=== PATIENT | male | born 1950 | race Caucasian/White ===

== ENCOUNTER → 2022-06-28 14:20 | Outpatient (CLI) | payer OTHER, SELFPAY ==
--- NOTE | ~2022-06-28 | MR_ITS ---
EXAMINATION: MR lumbar spine wo con DATE: 06/28/2022 14:54 INDICATION: Low back pain. Bilateral leg pain. Right foot drop. TECHNIQUE: Magnetic resonance imaging (MRI) of the lumbar spine was performed without intravenous con trast. Sequences included sagittal T2-weighted FSE, sagittal T2-weighted FS FSE, sagittal T1-weighted FSE, and axial T2-weighted FSE. COMPARISON: None FINDINGS: There is 3 degrees levocurvature of lumbar spine. There are Schmorl's nodes at most levels. There is 3 mm retrolisthesis of L2 on L3. There is mildly decreased disc height at L2-L3 and L3-L4, severely decreased disc height at L4-L5, and moderately decreased disc height at L5-S1 with endplate remodeling. The distal spinal cord signal intensity is normal. The conus medullaris is at L1. There i s peripheral displacement of the cauda equina at S1, consistent with arachnoiditis. The following dis c levels are specifically discussed: L1-L2: The disc is bulging. There is mild bilateral facet joint osteoarthritis. There is mild bilater al neural foraminal stenosis. There is mild central canal stenosis. L2-L3: The disc is bulging and has an annular fissure. There is mild bilateral facet joint osteoarthr itis. There is moderate bilateral neural foraminal stenosis. There is mild central canal stenosis. Th ere is moderate stenosis of left lateral recess. L3-L4: The disc is bulging and has an annular fissure. There is severe bilateral facet joint osteoart hritis. There is moderate bilateral neural foraminal stenosis. There is moderate central canal stenos is. L4-L5: The disc is bulging and has an annular fissure. There is severe bilateral facet joint osteoart hritis. There is severe right and moderate left neural foraminal stenosis. There is mild central amrik l stenosis with posterior decompression. L5-S1: The disc is bulging and has an annular fissure. There is severe bilateral facet joint osteoart hritis. There is moderate bilateral neural foraminal stenosis. There is mild central canal stenosis. IMPRESSION: 1. Severe lumbar spondylosis. Reviewed, dictated and finalized at location A.
== END ==
PROVIDERS: Visit Provider Neurological Surgery
DX: M21.371 Foot drop, right foot (principal); M21.372 Foot drop, left foot; M47.896 Other spondylosis, lumbar region
CPT/HCPCS: 72148

== ENCOUNTER 2022-08-07 09:35 | Outpatient (CLI) | payer OTHER, SELFPAY ==
--- NOTE | ~2022-08-07 | US_ITS ---
EXAMINATION: US aorta DATE: 08/07/2022 10:16 INDICATION: Abdominal aortic aneurysm TECHNIQUE: Grayscale, color Doppler, and pulsed Doppler images of the aorta and common iliac arteries were obtained. COMPARISON: None. FINDINGS: The proximal aorta measures 2.8 cm. The mid aorta measures 2.1 cm. Fusiform ectasia of the distal aor ta measuring up to 3.4 cm maximal diameter before tapering to 1.9 cm at the bifurcation. The right co mmon iliac artery measures 1.4 cm. The left common iliac artery measures 1.1 cm. IMPRESSION: 1. Fusiform ectasia of the infrarenal abdominal aorta which measures up to 3.4 cm maximal diameter. Reviewed, dictated and finalized at location A. M AUDITOR
== END 2022-08-07 09:36 | disposition home or self-care (01) ==
PROVIDERS: Visit Provider Internal Medicine Cardiovascular Disease
DX: Z95.5 Presence of coronary angioplasty implant and graft (principal); I71.40 Abdominal aortic aneurysm, without rupture, unspecified; Z01.810 Encounter for preprocedural cardiovascular examination; I10 Essential (primary) hypertension; M48.061 Spinal stenosis, lumbar region without neurogenic claudication; E78.2 Mixed hyperlipidemia
CPT/HCPCS: 76775

== ENCOUNTER → 2022-08-29 16:25 | Outpatient (CLI) | payer OTHER, SELFPAY ==
--- NOTE | ~2022-08-29 | XR_ITS ---
XR hip RT min 2V 08/29/2022 16:42 Indication: Right hip pain Procedure: 3 views right hip Comparison: No prior studies for comparison. Findings: There is mild-moderate osteoarthritis of the right hip. No fracture or traumatic malalignme nt. Normal mineralization. No soft tissue abnormality. Impression: 1: Mild-moderate osteoarthritis of the right hip. Reviewed, dictated and finalized at location A. S EXPERT Impression: 1: Mild-moderate osteoarthritis of the right hip.
== END ==
PROVIDERS: PCP Neurological Surgery; Visit Provider Neurological Surgery
DX: M16.11 Unilateral primary osteoarthritis, right hip (principal)
CPT/HCPCS: 73502

== ENCOUNTER 2022-11-28 14:41 | Outpatient (CLI) | payer OTHER, MEDICARE, SELFPAY ==
--- NOTE | ~2022-11-28 | MR_ITS ---
MRI of the right hip Clinical history: Trochanteric bursitis Technique: Coronal T1-weighted, T2-weighted, and proton-density fat-sat images, and axial T1-weighted and proton-density fat-sat images were acquired through the pelvis. Coronal T2-weighted images and c oronal, axial, and sagittal proton-density fat-sat images were acquired through the right hip. Findings: There is extensive marrow edema in the right femoral head extending to the right femoral ne ck. There is underlying extensive high-grade chondromalacia throughout the right hip joint with super ior right hip joint space narrowing and osteophyte formation at the superolateral right acetabulum. M oderate right hip joint effusion is present. There is mild chondromalacia of the left hip joint. Bone marrow signals in the proximal left femur an d remaining visualized pelvic bones are unremarkable. No left hip joint effusion. SI joints are essen tially unremarkable. Visualized musculature about the pelvis is unremarkable. No muscle atrophy or edema identified. Visua lized tendons are intact. No fluid collection or bursitis identified. IMPRESSION: Extensive marrow edema in the right femoral head extending to femoral neck is likely reactive/stress response, related to underlying moderate right hip osteoarthritis. No evidence for avascular necrosis or subchondral insufficiency fracture. Moderate right hip joint effusion, presumably reactive. Consider joint aspiration if indicated. No evidence for bursitis. Reviewed, dictated and finalized at location M. CLE FUEL SYSTEMS CONVERTER IMPRESSION: Extensive marrow edema in the right femoral head extending to femoral neck is l ikely reactive/stress response, related to underlying moderate right hip osteoa rthritis. No evidence for avascular necrosis or subchondral insufficiency fract ure. Moderate right hip joint effusion, presumably reactive. Consider joint aspirati on if indicated. No evidence for bursitis.
== END 2022-11-28 14:42 | disposition home or self-care (01) ==
DX: M70.61 Trochanteric bursitis, right hip (principal); R60.9 Edema, unspecified; M16.11 Unilateral primary osteoarthritis, right hip; M25.451 Effusion, right hip
CPT/HCPCS: 73721

== ENCOUNTER 2022-11-28 14:42 | Outpatient (CLI) | payer OTHER, MEDICARE, SELFPAY ==
--- NOTE | ~2022-11-28 | MR_ITS ---
MRI of the lumbar spine Clinical History: Right hip pain Technique: Axial T2-weighted images, and sagittal T1-weighted, T2-weighted, and T2 fat-sat images wer e acquired. Following intravenous administration of 20 cc MultiHance gadolinium, T1-weighted fat-sat imaging was performed in the axial and sagittal planes. COMPARISON: 06/28/2022 Findings: There is no fracture or subluxation of the lumbar spine. Vertebral bodies maintain normal h eight and alignment. No suspicious bone marrow signal abnormality seen. Probable prior laminectomies at L2 and L3. At L1-L2, minimal disc bulge and facet arthropathy are present. No wang spinal canal stenosis. There is minimal left neural foraminal narrowing. At L2-L3, disc bulge and facet arthropathy are present. There is probable bilateral lateral recess st enosis, left worse than right. There is moderate to severe bilateral neural foraminal narrowing. At L3-L4, disc bulge and facet arthropathy are present. There is probable lateral recess stenosis ady aterally. There is severe bilateral neural foraminal narrowing. At L4-L5, disc bulge and facet arthropathy are present, with bilateral lateral recess stenosis. There is severe bilateral neural foraminal narrowing. At L5-S1, there is disc bulge and facet arthropathy. No wang spinal canal stenosis. There is severe bilateral neural foraminal narrowing. Paravertebral soft tissues are unremarkable. No abnormal/suspicious postcontrast enhancement identifi ed. Impression: Moderate to advanced degenerative spondylosis, with multilevel advanced neural foraminal narrowing, a s detailed above. There is multilevel lateral recess stenosis without wang central canal stenosis. Prior laminectomies at L2 and L3. Reviewed, dictated and finalized at location . L INSTRUCTOR Impression: Moderate to advanced degenerative spondylosis, with multilevel advanced neural foraminal narrowing, as detailed above. There is multilevel lateral recess sten osis without wang central canal stenosis. Prior laminectomies at L2 and L3.
== END 2022-11-28 14:43 | disposition home or self-care (01) ==
PROVIDERS: Visit Provider Neurological Surgery
DX: Z01.818 Encounter for other preprocedural examination (principal); M25.551 Pain in right hip; M47.816 Spondylosis without myelopathy or radiculopathy, lumbar region; M96.1 Postlaminectomy syndrome, not elsewhere classified
CPT/HCPCS: 72158; 73721; A9577

== ENCOUNTER 2023-02-05 10:53 | Outpatient (CLI) | payer MEDICARE, SELFPAY ==
--- NOTE | ~2023-02-05 | XR_ITS ---
EXAM: XR shoulder LT min 2V DATE: 02/05/2023 11:19 HISTORY: L ROTATOR CUFF TENDONITIS . COMPARISON: None available. FINDINGS: Normal mineralization. No fracture or dislocation. No lytic or blastic lesion. Moderate AC joint and mild glenohumeral joint degenerative change. Inferior acromial osteophytosis/enthesopathy that could contribute to osseous outlet compromise. Amorphous distal cuff calcification. No erosion o r periosteal change. Soft tissues within normal limits. IMPRESSION: Polyarticular osteoarthritis of the left shoulder. Rotator cuff calcific tendinitis. Reviewed, dictated and finalized at location K. IMPRESSION: Polyarticular osteoarthritis of the left shoulder. Rotator cuff cory cific tendinitis.
== END 2023-02-05 10:54 | disposition home or self-care (01) ==
PROVIDERS: PCP Family Medicine; Visit Provider Family Medicine
DX: M75.80 Other shoulder lesions, unspecified shoulder (principal); M19.012 Primary osteoarthritis, left shoulder
CPT/HCPCS: 73030

== ENCOUNTER 2023-04-24 14:00 | Outpatient (RCR) | payer MEDICARE, SELFPAY ==
--- NOTE | 2023-02-09 13:27 | PTOPEVAL1 ---
Assessment and note entered by Soco Krishna, PT Evaluation Information Assessment Status Evaluation Diagnosis s/p R THR Onset 12-28-22 Subjective Information pt had R THR on 12-28-22, then fell 01-02-23; went to in pt rehab and home 01-18-23; no longer using assistive device; do leg exercises on back; does not have any restrictions from dr; pain in R hip after any type of activty- walking, standing; also have back pain, more since having hip surgery; at home, has been walking on his treadmill about 1/2 mile, then have to stop due to pain in hip; does some leg exercises lying down. discussed with him-use his stationary bike, instead of treadmill to decrease stress on his hip and back; GOAL: walking without hip pain or back pain; Reported Pain Level Pain Score Self Report Additional Pain Score Comments pain range of 5-8/10 in the past week- R lateral hip and buttock- achey pain and low back; increase pain with sitting/walking tolerance 3 hours of activity at home; decrease pain with sit, rest; does not use ice, heat, pain meds;instruct PRN heat/ice use Assessment PT Clinical Summary Gustavo has the diagnosis of s/p R THR. Post op, he had a fall and had in pt rehab. He reports pain in his hip and back limit his walking, standing and activity level. With the evaluation, he has decreased strength of R hip; tenderness and pain over R mid to distal ITB; poor standing posture of back, with R hip and knee flexion; 5 reps sit/stand time of 19 seconds and 2 minute walking test distance of 390' with pain increase to 6/10 R hip; Skilled PT services are indicated for modalities to decrease hip and ITB pain; therapeutic exercises and activities to increase mobility and strength with education for home exercise and position of hip. Plan of Care Interventions Electrical Stimulation,Gait Training,Hot Pack/Cold Pack,Manual Therapy,Neuro Re-education,Patient/ Caregiver Education,Therapeutic Activities, Therapeutic Exercise,Ultrasound,Other Other Interventions iggy, ELI PT Ser
--- NOTE | 2023-02-14 10:57 | PCPTNOTE ---
Pt cancelled his afternoon appt today. Pt did not give a reason currently but stated he would call back later to explain.
--- NOTE | 2023-03-07 14:22 | PCPTNOTE ---
Patient called & cancelled scheduled appointment this date due to needing to rest today.
--- NOTE | 2023-03-13 16:55 | PTOPPROG ---
Assessment and note entered by Mason Anderson, PT, DPT Evaluation Information Assessment Status Progress Diagnosis s/p R THR Onset 12-28-22 Subjective Information Pt states his R hip is doing great. He states since getting his R hip replaced his L hip has started to hurt since his replacement. Assessment PT Clinical Summary Jose presents to therapy today for his progress report following 4 visits of skilled therapy to treat the deficits s/t a R DANNY. Today he demonstrates improved good knee strength, but continues to have decreased ady hil strength in all plane, gait deviations, and excessive trunk flexion during static standing. Continuation of skilled therapy services are indicated to address remaining deficits, improve strength, manage pain, and to return to PLOF. Pt progress could be potentially limited by cognitive deficits. Plan of Care Interventions Electrical Stimulation,Gait Training,Hot Pack/Cold Pack,Manual Therapy,Neuro Re-education,Patient/ Caregiver Educati,Therapeutic Activities, Therapeutic Exercise,Ultrasound,Other Other Interventions taping, IASTM PT Services Indicated Yes Treatment Frequency and 1x/wk for 5 weeks Duration These treatments will address the objective and functional deficits as defined above. The patient will be advanced safely and appropriately in order for the patient to progress towards his/her prior level of function. Additional exercises will be introduced and as well as a comprehensive home exercise program upon discharge, if needed, ?to ensure carryover of functional gains achieved in the clinic. This treatment plan has been reviewed and agreement upon by the patient.
--- NOTE | 2023-03-20 14:06 | PCPTNOTE ---
Patient called to cancel today stating he would not be able to make his appointment. No specific reason given.
--- NOTE | 2023-04-17 16:00 | PTOPPROG ---
Assessment and note entered by Mason Anderson, PT, DPT Evaluation Information Assessment Status Progress Diagnosis s/p R THR Onset 12-28-22 Subjective Information Pt states he has developed bursitis on his L hip now. He states it feels like his R leg is stronger than his R leg. Pt reports 90-100% improvement in his R hip function. Assessment PT Clinical Summary Jose presents to therapy today for his progress report following 8 visits of skilled therapy to treat the deficits s/t a R DANNY. Today he continues to have gait deviations including asymmetric step length with lack of terminal hip extension on the R. His strength is progressing but hip abduction strength continues to limit mobility. Continuation of skilled services are indicated to progress strength, ROM, balance, stability, and to return to PLOF. Pt progress could be potentially limited by limitations with care over. Plan of Care Interventions Electrical Stimulation,Gait Training,Hot Pack/Cold Pack,Manual Therapy,Neuro Re-education,Patient/ Caregiver Educati,Therapeutic Activities, Therapeutic Exercise,Ultrasound,Other Other Interventions taping, IASTM PT Services Indicated Yes Treatment Frequency and 1x/wk for 4 weeks Duration These treatments will address the objective and functional deficits as defined above. The patient will be advanced safely and appropriately in order for the patient to progress towards his/her prior level of function. Additional exercises will be introduced and as well as a comprehensive home exercise program upon discharge, if needed, ?to ensure carryover of functional gains achieved in the clinic. This treatment plan has been reviewed and agreement upon by the patient.
--- NOTE | 2023-04-17 16:04 | OPREHPOC ---
Outpatient Therapy Plan of Care This is a Multidisciplinary Plan of Care that may contain components documented by all disciplines (PT, OT, and ST.) PT Problem 1 PT Problem #1 Knowledge Deficit PT Goal 1 Goal Pt to be IND with issued HEP Target Visit 8 PT Problem 2 PT Problem #2 Pain PT Goal 1 Goal Pt to report pain no greater than 3/10 in the last week Target Visit 8 PT Goal 2 Goal Pt to report 50% improvement in L hip symptoms Target Visit 8 PT Problem 3 PT Problem #3 Impaired Range of Motion PT Goal 1 Goal Pt to achieve 5 deg of passive R hip extension Target Visit 8 PT Goal 2 Goal Pt to improve ady hamstring length to -30 deg Target Visit 8 PT Problem 4 PT Problem #4 Impaired Gait PT Goal 1 Goal Pt to demonstrates equal step length during ambulation Target Visit 8 PT Goal 2 Goal Pt to improve 2 min walk distance to 450 ft
--- NOTE | 2023-05-02 10:28 | PCPTNOTE ---
Patient called to cancel on May 01. No reason given.
--- NOTE | 2023-05-07 11:54 | PCPTNOTE ---
This treatment is being continued on visit number [id number]. Please see documentation on both accounts to view progress. Completed interventions, outcomes, and problems have been marked as Inactive to facilitate the copying of the Care plan routine for recurring accounts.
== END 2023-05-07 09:13 | disposition still patient (30) ==
LOC: ANHGOSHPT 14:00
PROVIDERS: PCP Family Medicine
DX: Z47.1 Aftercare following joint replacement surgery (principal); M75.82 Other shoulder lesions, left shoulder; Z96.641 Presence of right artificial hip joint
CPT/HCPCS: 97110; 97112; 97116; 97140; 97161; 97530

== ENCOUNTER 2023-06-05 09:33 | Outpatient (RCR) | payer MEDICARE, SELFPAY ==
--- NOTE | 2023-05-07 11:54 | PCPTNOTE ---
The treatment documented on this account is a continuation of the treatment documented on visit number [id number]. Please see documentation on both accounts to view progress. The Plan of Care has been transitioned and updated within the new V#. I have addressed and agree with the discipline specific Problems, Interventions, and Goals for the current certification period. Completed interventions, outcomes, and problems have been marked as Inactive to facilitate the copying of the Care plan routine for recurring accounts.
--- NOTE | 2023-05-15 13:19 | PCPTNOTE ---
Patient called & cancelled scheduled appointment this date. He states he will call back and reschedule at a later date.
--- NOTE | 2023-06-05 10:12 | PTOPDC ---
Assessment and note entered by Mason Anderson, PT, DPT Evaluation Information Assessment Status Discharge - Pt Not Present Diagnosis R hip pain Subjective Information Pt called and cancelled all of his remaining appointment and states he is going to therapy elsewhere. He did not give a reason why. Assessment PT Clinical Summary Jose completed 11 visits of skilled therapy from 02/09/23 to 05/15/23. In that time he also cancelled 4 appointments. He will be discharged at this time per pt request.
== END 2023-06-05 09:34 | disposition home or self-care (01) ==
LOC: ANHGOSHPT 09:33
PROVIDERS: PCP Family Medicine
DX: Z47.1 Aftercare following joint replacement surgery (principal); Z96.641 Presence of right artificial hip joint
CPT/HCPCS: 97110; 97140; 99199

== ENCOUNTER 2023-06-29 11:30 | Outpatient (CLI) | payer MEDICARE, SELFPAY ==
--- NOTE | ~2023-06-29 | CT_ITS ---
EXAMINATION: CT lung screening DATE: 06/29/2023 11:57 INDICATION: Personal history of nicotine dependence, prior smoker with 70 to pack year history TECHNIQUE: Computed tomography (CT) of the chest was performed without intravenous contrast. The dose -length product (DLP) was 349.11 mGy-cm. Automated exposure control and iterative reconstruction tech [employer] were employed. COMPARISON: 09/04/2019 FINDINGS: There is moderate emphysema. Calcified pulmonary nodules are consistent with old granulomat ous disease. No pathologically enlarged thoracic lymph nodes are identified. The heart size is normal . The lungs are free of acute opacities. No pleural effusion or pneumothorax. Calcified coronary cammie ry atherosclerosis is noted. Stones are present in the nondistended gallbladder. There is moderate th oracic spondylosis. IMPRESSION: 1. Lung-RADS category 1: Negative. Continue annual screening with noncontrast low-dose chest CT in 12 months. Reviewed, dictated and finalized at location F. IMPRESSION: 1. Lung-RADS category 1: Negative. Continue annual screening with noncontrast l ow-dose chest CT in 12 months.
== END 2023-06-29 11:31 | disposition home or self-care (01) ==
PROVIDERS: PCP Family Medicine; Visit Provider Family Medicine
DX: Z12.2 Encounter for screening for malignant neoplasm of respiratory organs (principal); Z87.891 Personal history of nicotine dependence
CPT/HCPCS: 71271

== ENCOUNTER 2023-09-18 17:40 | Outpatient (CLI) | payer MEDICARE, SELFPAY ==
--- NOTE | ~2023-09-18 | XR_ITS ---
EXAMINATION: XR chest 2V DATE: 09/18/2023 17:55 INDICATION: Cough. COVID-19. TECHNIQUE: Frontal and lateral views of the chest were obtained. COMPARISON: Chest CT 06/29/2023 FINDINGS: There is mild scarring at the lung apices. No pleural effusion or pneumothorax. The heart s ize is normal. IMPRESSION: 1. Mild scarring at the lung apices. Reviewed, dictated and finalized at location E. CONDITIONING TECHNICIAN
== END 2023-09-18 17:41 | disposition home or self-care (01) ==
PROVIDERS: PCP Family Medicine; Visit Provider Family Medicine
DX: U07.1 COVID-19 (principal)
CPT/HCPCS: 71046

== ENCOUNTER 2023-10-12 13:55 | Outpatient (RCR) | payer MEDICARE, SELFPAY ==
--- NOTE | 2023-10-12 16:14 | OPREHPOC ---
Outpatient Therapy Plan of Care This is a Multidisciplinary Plan of Care that may contain components documented by all disciplines (PT, OT, and ST.) PT Problem 1 PT Problem #1 Knowledge Deficit PT Goal 1 Goal Pt to be IND with issued HEP Target Visit 8 PT Problem 2 PT Problem #2 Pain PT Goal 1 Goal Pt to report pain no greater than 3/10 in the last week. Target Visit 8 PT Goal 2 Goal Pt to report 75% improvement in overall symptoms. PT Problem 3 PT Problem #3 Impaired Range of Motion PT Goal 1 Goal Pt to demonstrate passive hip extension to 0 deg Target Visit 8 PT Goal 2 Goal Pt to demonstrate improved hamstring length to -45 deg Target Visit 8 PT Problem 4 PT Problem #4 Impaired Functional Mobil PT Goal 1 Goal Pt to demonstrate a functional lift and carry with 20lb Target Visit 8
--- NOTE | 2023-10-12 16:14 | PTOPEVAL1 ---
Assessment and note entered by Mason Anderson, PT, DPT Evaluation Information Assessment Status Evaluation Diagnosis L hip tendonitis Onset 2 months Subjective Information Pt reports L hip pain increasing for the last 2 month. He states it is increasing the low back pain on his L side. He states his walking and standing is limited to about 10-15 minutes. He has been seen by therapy before in the past but he states his exercises are too painful to do. Reported Pain Level Pain Score 2: Self Report Assessment PT Clinical Summary Jose presents to therapy today for his initial evaluation with a diagnosis of L hip tendonitis. He demonstrates lack of hip extension ROM, decreased strength globally in his BLE, and gait deviations. He has significant tightness of his hamstring and ITBs bilaterally. Skilled therapy services are indicated for pain management, to improve strength, to minimize deficits, and to improve functional mobility. Plan of Care Interventions Electrical Stimulation,Gait Training,Hot Pack/Cold Pack,Manual Therapy,Neuro Re-education,Patient/ Caregiver Educati,Therapeutic Activities, Therapeutic Exercise PT Services Indicated Yes Treatment Frequency and 2x/wk for 8 visits Duration These treatments will address the objective and functional deficits as defined above. The patient will be advanced safely and appropriately in order for the patient to progress towards his/her prior level of function. Additional exercises will be introduced and as well as a comprehensive home exercise program upon discharge, if needed, ?to ensure carryover of functional gains achieved in the clinic. This treatment plan has been reviewed and agreement upon by the patient.
--- NOTE | 2023-10-24 16:15 | PCPTNOTE ---
Patient called & cancelled scheduled all remaining appointment this date due to wanting to see ortho prior to continuing therapy. Will continue to follow.
--- NOTE | 2023-11-02 11:56 | PTOPDC ---
Assessment and note entered by Mason Anderson, PT, DPT Evaluation Information Assessment Status Discharge - Pt Not Present Diagnosis L hip tendonitis Onset 2 months Subjective Information Called pt to follow up. Pt states he got a new chair and is not having any more pain. He does not wish to continue with formal PT at this time. Assessment PT Clinical Summary Pt was evaluated on 10/12/23 and did not complete any subsequent treatments. He will be discharged at this time per his request.
== END 2023-11-02 13:50 | disposition home or self-care (01) ==
LOC: ANHGOSHPT 13:55
PROVIDERS: PCP Family Medicine
DX: M76.02 Gluteal tendinitis, left hip (principal); M75.82 Other shoulder lesions, left shoulder
CPT/HCPCS: 97110; 97140; 97161

== ENCOUNTER 2024-05-15 11:01 | Outpatient (CLI) | payer MEDICARE, SELFPAY ==
--- NOTE | ~2024-05-15 | MR_ITS ---
EXAMINATION: MR lumbar spine wo/w con DATE: 05/15/2024 12:10 INDICATION: Chronic low back pain. TECHNIQUE: Magnetic resonance imaging (MRI) of the lumbar spine was performed without and with 10 mL MultiHance intravenous contrast. COMPARISON: Lumbar spine MRI 11/28/2022 FINDINGS: Bone alignment is normal. There is mild chronic height loss of L1 vertebral body. There are Schmorl's nodes at all levels. There is mildly decreased disc height at L2-L3 and L3-L4 and severely decreased disc height at L4-L5 and L5-S1. The distal spinal cord signal intensity is normal. The con us medullaris is at L1. The following disc levels are specifically discussed: L1-L2: The disc is bulging. There is mild bilateral facet joint osteoarthritis. There is mild bilater al neural foraminal stenosis. There is mild central canal stenosis. L2-L3: The disc is bulging and has an annular fissure. There is severe bilateral facet joint osteoart hritis. There is moderate bilateral neural foraminal stenosis. There is mild central canal stenosis w ith posterior decompression. L3-L4: The disc is bulging and has an annular fissure. There is severe bilateral facet joint osteoart hritis. There is moderate bilateral neural foraminal stenosis. There is mild central canal stenosis w ith posterior decompression. L4-L5: The disc is bulging and has an annular fissure. There is severe bilateral facet joint osteoart hritis. There is moderate bilateral neural foraminal stenosis. There is mild central canal stenosis w ith posterior decompression. L5-S1: The disc is bulging and has an annular fissure. There is severe bilateral facet joint osteoart hritis. There is moderate bilateral neural foraminal stenosis. There is mild central canal stenosis. IMPRESSION: 1. Severe lumbar spondylosis, stable from 11/20/2022. Reviewed, dictated and finalized at location A.
== END 2024-05-15 11:02 | disposition home or self-care (01) ==
PROVIDERS: PCP Family Medicine; Visit Provider Family Medicine
DX: M51.36 Other intervertebral disc degeneration, lumbar region (principal); M43.06 Spondylolysis, lumbar region
CPT/HCPCS: 72158; A9577

== ENCOUNTER 2024-06-26 13:00 | Outpatient (CLI) | payer MEDICARE, SELFPAY ==
--- NOTE | ~2024-06-26 | CT_ITS ---
CTA abdomen pelvis Ordering provider: Juan Francisco CerdaMD History: . ARTHEROSCLERTIC HEART DISEASE . Comparison: None. Technique: CT angiogram abdomen and pelvis was performed following timed intravenous injection of con trast. Thin slice axial images and reformatted coronal images were obtained. Three dimensional reform atted images of the chest were also obtained using a [employer] workstation. . Automated exposure contro l and iterative reconstruction technique were employed. The dose-length product was 1619.76 mGy-cm. 1 00 mL Omnipaque 350 was given IV. FINDINGS: VISUALIZED LOWER CHEST: Mild dependent atelectasis bilaterally. UPPER ABDOMINAL ORGANS: Liver: Fat infiltration. Tiny hyperdensities are seen which may be small cysts. Gallbladder: Cholelithiasis. Spleen: Normal. Stomach/duodenum: Normal. Pancreas: Normal. Adrenals: Normal. Kidneys: Normal. PELVIC ORGANS: The bladder is underfilled with slightly thickened wall. Prostatic enlargement. BOWEL AND MESENTERY: Colon: No evidence of diverticulitis. Normal appendix. Small Bowel: Normal. No obstruction. Peritoneum/mesentery: No free air or free fluid. No mesenteric lymphadenopathy. RETROPERITONEUM: No retroperitoneal lymphadenopathy. ABDOMINAL AORTA: Abdominal aortic aneurysm in the distal aorta measuring 4.1 x 3.5 cm. Thrombosis is seen posteriorly in the aneurysmal sac. ILIAC ARTERIES AND BRANCHING VESSELS: Atherosclerotic changes with mild narrowing. RENAL ARTERIES: Atherosclerotic changes in the left renal artery with slight narrowing distally. CELIAC AXIS AND BRANCHING VESSELS: Atherosclerotic at the origin. SUPERIOR MESENTERIC ARTERY AND BRANCHING VESSELS: Normal. INFERIOR MESENTERIC ARTERY: Atherosclerotic changes. VISUALIZED FEMORAL ARTERIES: Atherosclerotic changes bilaterally. MUSCULOSKELETAL: Superficial soft tissues: The superficial soft tissues are normal. Bones: Age appropriate degenerative changes of the spine. Right hip arthroplasty. IMPRESSION: 1. Abdominal aortic aneurysm measuring 4.1 x 3.5 cm. Follow-up advised. 2. Cholelithiasis. 3. Atherosclerotic changes in multiple vessels with variable degrees of narrowing. Reviewed, dictated and finalized at location A. IMPRESSION: 1. Abdominal aortic aneurysm measuring 4.1 x 3.5 cm. Follow-up advised. 2. Cholelithiasis. 3. Atherosclerotic changes in multiple vessels with variable degrees of narrow ing.
[2024-06-26 13:38] LABS: Estimated Glomerular Filt Rate 42
== END 2024-06-26 13:01 | disposition home or self-care (01) ==
LOC: ANHIMG 13:10
PROVIDERS: PCP Family Medicine; Visit Provider Internal Medicine Cardiovascular Disease
DX: I71.40 Abdominal aortic aneurysm, without rupture, unspecified (principal); K80.20 Calculus of gallbladder without cholecystitis without obstruction; I25.10 Atherosclerotic heart disease of native coronary artery without angina pectoris
CPT/HCPCS: 74174; Q9967

== ENCOUNTER 2025-02-26 15:25 | Outpatient (CLI) | payer MEDICARE, SELFPAY ==
--- NOTE | ~2025-02-26 | CT_ITS ---
CT Scan of the Chest without Contrast: Clinical Indication: Lung cancer screening, nicotine dependence Technique: Contiguous sections were acquired throughout the chest without intravenous contrast. Dose reduction technique was used on this scan by utilizing automated exposure control and iterative recon struction technique. The dose-length product (DLP) was 224.64 mGy-cm. COMPARISON: 06/29/2023 Findings: There is no evidence of any significant mediastinal, hilar or axillary lymphadenopathy. Coronary cammie ry calcifications are present. There is no evidence of pleural or pericardial effusion. There is mild biapical scarring. Moderate emphysema present. 2 mm left upper lobe nodule present yajaira pherally (axial image 41). Images through the upper abdomen reveal small gallstones. Impression: Lung RADS 2: Benign appearance. 12 month follow-up screening CT advised. Reviewed, dictated and finalized at [facility]. Impression: Lung RADS 2: Benign appearance. 12 month follow-up screening CT advised.
--- OUTSIDE RECORDS SUMMARY | 2025-02-26 15:29 | XMS_ITS | Clinical Summary ---
Author Organization [facility] Address [address] [place] [address] Phone Care Team Providers Care Sybase Developer Name Role Phone Ward Voss DO Primary Care Provider [phone] Allergies No known active allergies Medications atorvastatin (LIPITOR) 40 mg tablet Take 1 Tablet (40 mg) by mouth daily at bedtime. 60 Tablet 0 03/29/2016 Active acetaminophen (TYLENOL) 500 mg tablet Take 1,000 mg by mouth every 6 hours as needed. Active metoprolol tartrate (LOPRESSOR) 25 mg tablet Take 25 mg by mouth 2 times daily. 11/18/2021 Active hydrALAZINE (APRESOLINE) 25 mg tablet Take 1 Tablet (25 mg) by mouth 2 times daily. 01/04/2023 Active lisinopriL (PRINIVIL) 10 mg tablet Take 1 Tablet (10 mg) by mouth daily. 01/04/2023 Active cyanocobalamin (VITAMIN B-12) 1,000 mcg Tablet, Sublingual Place 1 Tablet (1,000 mcg) under tongue daily. 30 Tablet 01/04/2023 Active potassium chloride ER 10 mEq tablet,extended release Take 10 mEq by mouth 2 times daily with meals. Active rifAXIMin (XIFAXAN) 200 mg Tablet Take 200 mg by mouth 3 times daily. Active Hospital, Clinic, or Other Facility Administered Medication Ordered Dose Route Frequency Start Date End Date Status triamcinolone acetonide (KENALOG-40) injectable suspension 40 mgIndications:Primar y osteoarthritis of left hip 40 mg Intra-arTIC u ONE TIME ONLY 02/26/2025 Ended Active Problems Problem Noted Date Diagnosed Date Sacroiliac joint dysfunction of left side 2023 Cellulitis of right hip 08/08/2023 Pain of left hip 07/11/2023 Alzheimer disease 02/19/2023 Overview (08/08/2023): Last Assessment & Plan: Dx: AD Results to date reviewed Lecanemab treatment described. Candidacy reviewed. Provided with information sheet and infusion center locations. Daughter () provide AUR paper for review. Family to review and will let office know if they wish to proceed with treatment initiation. Status post total hip replacement, right 023 Sepsis 01/08/2023 Acute cystitis 01/08/2023 Acute kidney injury superimposed on CKD 01/09/20 23 S/P closed reduction of dislocated total hip pro sthesis 01/04/2023 Acute on chronic anemia 01/04/2023 Bilateral leg edema 01/04/2023 Acute deep vein thrombosis ( DVT) of femoral vein of right lower extremity 01/04/2023 Hypertensive urgency 01/04/2023 Uncontrolled hypertension 01/04/2023 Sinus tachycardia 01/04/2023 Therapeutic opioid-induced constipation (OIC) Hyponatremia 01/04/2023 Anterior dislocation of right hip 01/04/2023 S/P total right hip arthroplasty 01/02/2023 Fall at home 01/02/2023 Primary osteoarthritis of right hip 12/05/2022 Trochanteric bursitis, right hip 09/11/2022 Stage 1 mild chronic obstruc tive pulmonary disease by Global Initiative for Chronic Obstructive Lung Disease classification 02/10/2022 Coronary artery calcification seen on CAT scan 0 02/10/2022 History of 2019 novel coronavirus disease (COVID -19) 02/10/2022 COVID-19 11/26/2021 Overview (05/26/2022): Last Assessment & Plan: NEG influenza A/B but +covid. Continue tylenol/ibuprofen. Add mucinex for sinus pain & chest congestion. Reviewed red flags; what would warrant ED for more emergent eval. Mr Wright requested [facility] infusion. Order entered. Aware that [facility] infusion will call him to set up appt. Multiple pulmonary nodules d etermined by computed tomography of lung 08/14/2021 Centrilobular emphysema 08/14/2021 Personal history of tobacco use 08/14/2021 Calcified granuloma of lung 08/14/[address] 08/14/2021 AAA (abdominal aortic aneurysm) 05/26/2021 BPH (benign prostatic hyperplasia) 05/26/2021 Oral candidiasis 05/26/2021 Tear of left gluteus medius tendon 08/09/2020 Overview (05/26/2022): Added automatically from request for surgery [id number] Trochanteric bursitis, left hip 06/08/2020 Adenopathy, cervical 10/17/2018 Aortic atherosclerosis 03/11/2018 Displaced fracture of second metatarsal bone of left foot with routine healing 01/28/2018 Tinea pedis of both feet 12/31/2017 Eczema 07/19/2017 Subacute ethmoidal sinusitis 05/15/2017 Status post placement of stent in right coronary artery 04/26/2016 Presence of coronary angioplasty implant and gra ft 04/06/2016 Coronary arteriosclerosis in [place] artery 03/27 Overview (04/11/2017): Overview: 03/16 lexiscan nuclear: inferoapical & apical lateral ischemia, EF 64% 03/16 cath: EF 65%, EDP 14, 95% ulcerated mLCx -> AMOR (jailing small OM), 99% codminant small RCA -> AMOR, 100% small RPDA Dyspnea on exertion 02/23/2016 Edema 02/23/2016 Condyloma acuminatum 06/18/2015 Overview (05/31/2018): Overview: Condyloma acuminatum Pruritus ani 06/18/2015 Overview (05/31/2018): Overview: Anal itching Hyperlipidemia 09/29/2014 History of malignant neoplasm of skin 05/14/2014 Rosacea 03/05/2014 Low back pain 03/05/2014 History of tobacco use 03/05/2014 Essential hypertension Overview (01/10/2018): Overview: Abdominal aortic US 05/2016 -- abd ao ectasia at 2.9 cm max diameter with non-occlusive athero. Abdominal aortic US 11/2017 -- abd ao ectasia at 2.8 cm max diameter; non- occlusive athero may limit identification of posterior wall Resolved Problems Problem Noted Date Diagnosed Date Resolved Date Screening for cardiovascular , respiratory, and genitourinary diseases 03/07/2018 06/08/2020 Urinary tract infection without hematuria 10/10/2017 06/08/2020 Routine general medical exam ination at a health care facility 03/20/2017 06/08/2020 Leucocytosis 03/28/2016 06/08/2020 Hypertension 03/05/2014 06/08/2020 Overview (04/11/2017): Overview: Abdominal aortic US 05/2016 -- abd ao ectasia at 2.9 cm max diameter with non-occlusive athero. Discoid lupus erythematosus 05/12/2013 06/08/2020 Ischemic chest pain 06/08/20 20 Encounters Date Type Department Care Team Description 02/26/2025 2:00 PM CDT Procedure visit [facility] Sports Medicine [facility] [id number] [place] [phone] Ty Napoles MD Primary osteoarthritis of left hip (Primary Dx) 01/30/2025 12:15 PM CDT Ancillary Procedure [facility] Orthopedics - [facility] [address] [address] Santos Eduardo MD Pain of left hip 01/30/2025 11:45 AM CDT Office Visit [facility]oped[facility] [address] [facility] [address] [place] [address] Santos Eduardo MD Primary osteoarthritis of left hip (Primary Dx) 12/06/2024 External Device Data ST[facility] ABSTRACTION Provider, Abstract 12/06/2024 External Device Data [facility] ABSTRACTION Provider, Abstract 12/03/2024 External Device Data [facility] ABSTRACTION Provider, Abstract 12/02/2024 External Device Data [facility] ABSTRACTION Provider, Abstract from Last 3 Months Immunizations Immunization Administration Dates Next Due (ADACEL/BOOSTRIX)(10 YR UP) TDAP VACCINE, 0.5ML, IM 06/15/2019,07/03/2016 (PNEUMOVAX 23)(50 YRS UP) PN EUMOCOCCAL POLYSACCHARIDE (PPV23) 0.5 ML, IM 07/28/2019 (PREVNAR 13)(6 WKS UP) PNEUM OCOCCAL CONJUGATE (PCV13) 0.5 ML, IM 08/05/2017,05/27/2015 INFLUENZA VACCINE HIGH DOSE QUADRIVALENT 65 YR UP PF IM 07/14/2022,07/01/2021 Influenza Seasonal Unspecifi ed Formulation IM 07/14/2015 Influenza Vaccine High Dose 65+ Yrs IM 0 06/08/2020,07/28/2019,07/23/2018,08/05,07/21/2016,08/02/2015 Influenza Vaccine Tri Split 4+ Im 2014,08/10/2014,08/07/2013,08/07 Influenza, Unspecified Formulation 07/01/2021 Family History Medical History Relation Name Comments Healthy Brother Healthy Daughter Heart Disease Father N/A Heart Surgery Father N/A Heart Attack Maternal Grandfather N/A Heart Disease Maternal Grandfather N/A Cardiomyopathy Maternal Grandmother Heart Attack Mother Heart Attack Paternal Grandfather Relation Name Status Comments Brother Alive Daughter Alive Father N/A CABG at 72 Maternal Grandfather N/A Maternal Grandmother Mother [place] at 70 Paternal Grandfather Paternal Grandmother Social History Tobacco Use Types Packs/Day Years Used Date Smoking Tobacco: Former Cigarettes 0.3 20 0 03/28/1996 - 03/28/2016 Smokeless Tobacco: Never Alcohol Use Standard Drinks/Week Comments Yes 0 (1 standard drink = 0.6 oz pur e alcohol) occasionally Feeling Safe Answer Date Recorded Are you in a relationship wi th someone who hurts you emotionally and/or physically? No 01/08/2023 Food Insecurity Answer Date Recorded Social/Environmental Concerns No concerns Transportation Needs Answer Date Record ed Social/Environmental Concerns No concerns 04 /06/2023 Housing Stability Answer Date Recorded Social/Environmental Concerns No concerns Utility Needs Answer Date Recorded Social/Environmental Concerns No concerns Sex and Gender Information Value Date Recorded Sex Assigned at Not on file Legal Sex Male 6:10 AM 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 Gender Identity Not on file Sexual Orientation Not on file Last Filed Vital Signs Vital Sign Reading Time Taken Comments Blood Pressure 112/84 08/08/2023 11:42 AM 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 Pulse 78 03/12/2023 2:12 PM CDT Temperature 36.7 C (98.1 F) 01/10/2023 4:15 PM CDT Respiratory Rate 18 01/10/2023 4:15 PM CDT Oxygen Saturation 92% 01/10/2023 4:15 PM CDT Inhaled Oxygen Concentration - - Weight 106.6 kg (235 lb) 01/30/2025 12:06 PM CDT Height 185.4 cm (6' 1) 01/30/2025 12:06 PM CDT Body Mass Index 31 01/30/2025 12:06 PM CDT Plan of Treatment Health Maintenance Due Date Last Done Comments ZOSTER VACCINE (1 of 2) 1998 Traditional Medicare (ACO) A nnual Wellness Visit 06/09/2021 06/08/2020 RSV VACCINE (60+ or ) (1 - 1-dose 75+ series) 2023 INFLUENZA VACCINE (#1) 2024 2, 07/01/2021, 06/08/2020, Additional history exists DTAP/TDAP/TD VACCINES (3 - T d or Tdap) 06/15/2029 06/15/2019, 07/03/2016 PNEUMOCOCCAL VACCINE 50+ YEARS Completed 1 , 08/05/2017, 05/27/2015 COLORECTAL SCREENING Discontinued 07/23/2023, 02/18/2018, 02/18/2018, Additional history exists Colorectal Cancer Screening Discontinued FIT-DNA Q 3 years Discontinued FIT/FOBT Q 1 year Discontinued Flex Sig/CT Colonography Q 5 years Discontinued Medical Devices Implanted Type Area Lang Interpreter Device Identifier Shelf Expiration Date Model / Serial / Lot Shell G7 Pps Lmtd Hl 58mm [id number] - [id number] Implanted:Qty : 1 on 12/28/2022 by Santos Eduardo MD at [facility] Hip Right: Hip [employer] 09/18/2032 [id number] / / [id number] Description:CAP ROBLES Liner G7 Acet Nutrl 40mm Sz G Longevity [id number] - [id number] Implanted:Qty : 1 on 12/28/2022 by Santos Eduardo MD at [facility] Hip Right: Hip [employer] 11/07/[id number] / / [id number] Description:CAP ROBLES Screw Trlgy St 6.5x30mm [id number] 0 - [id number] Implanted:Qty : 1 on 12/28/2022 by Santos Eduardo MD at [facility] Screw Right: Hip [employer] 06/19/2032 [id number] / / [id number] Description:CAP ROBLES Promus Premier Amor-03/27/2016 Implanted: by Brandon Acevedo MD (Quantity not on file) Stent Coronary [employer] 05/20/2017 / / [id number] Description:MID LAD Promus Premier Amor-03/27/2016 Implanted: by Wilberto Maldonado MD (Quantity not on file) Stent Coronary [employer] 01/23/2017 / / [id number] Description:RCA Total Biolox Delta Fem Head, 40mm, +0mm Implanted:Qty : 1 on 12/28/2022 by Santos Eduardo MD at [facility] Right: Hip [employer] 09/18/2032 [id number] / / [id number] Description:1X ADD CAP ROBLES GIO REQ#[id number] Total Avenir Cmpl Kirk Std Nc Size 7.5 Implanted:Qty : 1 on 12/28/2022 by Santos Eduardo MD at [facility] Right: Hip [employer] 06/30/2025 [id number] / / [id number] Description:1X ADD CAP ROBLES Procedures Procedure Name Priority Date/Time Associated Diagnosis Comments XR HIP 2 OR 3 VIEWS LT Routine 01/30/2025 12:26 PM CDT Pain of left hip COLONOSCOPY REPORT Routine 02/18/2018 from Last 3 Months or Most Recently Relevant to Health Maintenance Results * XR HIP 2 OR 3 VIEWS LT (01/30/2025 12:26 PM CDT) Anatomical Region Laterality Modality Lower Extremity Left Computed Radiogr aphy 01/30/2025 12:2 6 PM CDT Impressions 01/30/2025 1:08 PM CDT IMPRESSION: No acute osseous abnormality. DICTATION LOCATION: Location [address] [place] [address] Narrative 01/30/2025 1:08 PM CDT EXAMINATION: XR HIP 2 OR 3 VIEWS LT DATE: 01/30/2025 12:26 PM HISTORY: Pain of left hip COMPARISON: 06/18/2024 FINDINGS: 2 views the left hip are provided. Right hip arthroplasty is in expected position. Left hip joint alignment is normal. Mild left hip joint osteoarthritis. No acute fracture. Phleboliths are seen in the pelvis. Atherosclerotic calcifications are seen. Procedure Note Sophia Hua MD - 01/30/2025 EXAMINATION: XR HIP 2 OR 3 VIEWS LT DATE: 01/30/2025 12:26 PM HISTORY: Pain of left hip COMPARISON: 06/18/2024 FINDINGS: 2 views the left hip are provided. Right hip arthroplasty is in expected position. Left hip joint alignment is normal. Mild left hip joint osteoarthritis. No acute fracture. Phleboliths are seen in the pelvis. Atherosclerotic calcifications are seen. IMPRESSION: No acute osseous abnormality. DICTATION LOCATION: Location [address] [place] [address] Santos Eduardo MD DIAGNOSTIC IMAGING ORDERABLES Fi nal Result * COLONOSCOPY REPORT (02/18/2018) us Farhan Talbert MD GI PROCEDURE ORDERABLES E dited Result - Final [facility] CLIA# [id number] [address] [address] from Last 3 Months or Most Recently Relevant to Health Maintenance Insurance MEDICARE PART A AND B CIG MCR SUPP RX [facility] Medicare Part D * Guarantor: [employer] Account Type Relation to Patient Date of Phone Billing Address Corporate [place] [id number] Advance Directives For more information, please contact: [phone] * Full Code (Latest Code Status on File) Date Activated Date Inactivated Comments 01/07/2023 6:37 PM 01/10/2023 8:39 PM * Full Code Date Activated Date Inactivated Comments 01/02/2023 8:04 AM 01/05/2023 4:37 PM * Full Code Date Activated Date Inactivated Comments 12/28/2022 6:05 PM 12/29/2022 3:25 PM * Full Code Date Activated Date Inactivated Comments 12/28/2022 8:02 AM 12/28/2022 6:05 PM * Full Code Date Activated Date Inactivated Comments 03/27/2016 1:24 PM 03/29/2016 3:32 PM Care Teams Sybase Developer Relationship Specialty Start Date End Date Ward Voss DO [address] [place], [place] [address] [address] PCP - General Family Practice 02/22/23
--- OUTSIDE RECORDS SUMMARY | 2025-02-26 15:29 | XMS_ITS | Encounter Summary ---
Author Organization [facility] Address [address] [place] [address] Care Team Providers Care Analysis Consultant Name Role Phone Ward Voss DO Primary Care Provider [phone] Reason for Visit * Reason Comments Hip Pain * Eval and Treat (Routine) - Closed Specialty Diagnoses / Procedures Referred By Jese sommer Referred To Contact Sports Medicine Diagnoses Pain of left hip Procedures [place] OFFICE/OUTPATIENT ESTABLISHED MOD MDM 30 MIN [place] OFFICE/OUTPATIENT NEW MODERATE MDM [place] [address] [facility] [address] [address] [address] Phone: tel: [place]: [place] [address] [facility] [address] [address] Phone: tel: fax: Referral ID Status Reason Start Date Expiration Date Visits Re quested Visits Authorized [id number] Closed 01/30/2025 01/30/2026 1 1 Encounter Details Date Type Department Care Team (Late st Contact Info) Description 02/26/2025 2:00 PM CDT Procedure visit [facility] [address] [address] [place] [address] [address] [address] Primary osteoarthritis of left hip (Primary Dx) Social History Tobacco Use Types Packs/Day Years [...] Date Record ed Social/Environmental Concerns No concerns Housing Stability Answer Date Recorded Social/Environmental Concerns No concerns Utility Needs Answer Date Recorded Social/Environmental Concerns No concerns Sex and Gender Information Value Date Recorded Sex Assigned at Not on file Legal Sex Male 6:10 AM [employer]OMET[employer]INE[employer] Gender Identity Not on file Sexual Orientation Not on file documented as of this encounter Progress Notes * Ty Napoles MD - 02/26/2025 2:00 PM CDT [facility] Note LEONCIO REED [id number] 02/26/2025 Referring Provider: Dr. Jayce MD Chief Complaint: Chief Complaint Patient presents with Hip Pain HPI: LEONCIO REED is a 74 y.o. male who presents with left hip pain Sport and/or occupation: n/a. Symptom onset or injury date: Chronic. Injury mechanism, if applicable: No EMMANUEL. Place of Occurrence, if applicable: n/a. Associated symptoms: Patient reports pain on back. He reports pain goes down the leg.. Previous relevant imaging/testing: XR 01/30/2025. Physical rehab program and length of time: No previous PT What has helped so far: CSI in back partially. Relevant medical/surgical history: No history of sx to the area . Other details: History of L4/L5 and L5/S1 injections, SGMB injection 08/08/2023 I personally reviewed, verified, and updated where necessary past medical history, surgical history, family history, social history, and medications. Social History Tobacco Use Smoking Status Former Current packs/day: 0.00 Average packs/day: 0.3 packs/day for 20.0 years (5.0 ttl pk-yrs) Types: Cigarettes Start date: 03/28/1996 Quit date: 03/28/2016 Years since quittin.9 Smokeless Tobacco Never Discussed Tobacco cessation secondary to its effect on orthopedic healing and overall inflammation of the body. Asked them to discuss with their PCP if medical help is needed. PE: Vital Signs: There were no vitals taken for this visit. Pre- and Post-Procedure Exam Injection site: No erythema, warmth, rash, ecchymosis, swelling. Can move associated joint(s) in all planes. Neurovascularly intact. US Guided Procedure Note Referring Provider: Dr. Jayce MD Indication: Hip Osteoarthritis Flare Procedure: Sonographically guided left hip joint steroid injection Informed Consent: Following denial of allergy and review of potential side effects and complications including, but not limited to, infection, allergic reaction, local tissue breakdown, systemic effects of corticosteroids (if used), elevation of blood glucose (if steroids used), injury to soft tissue and/or nerves and seizure, the patient indicated understanding and agreed to proceed. Procedural pause conducted to verify: correct patient identity, procedure to be performed and, as applicable, correct side and site, correct patient position, availability of any special equipment orother special requirements. Justification for use of ultrasound guidance: The use of direct sonographic visualization of the needle (rather than a non-guided injection) was required to ensure accurate injection placement for diagnostic specificity, to maximize clinical efficacy and for safety purposes to minimize risk of bleeding or injury to nearby neurovascular structures. Technique: The procedure was carried out under sterile technique utilizing a sterile ultrasound transducer cover and sterile ultrasound gel. Pre-procedural scanning was performed to determine optimalneedle approach for the procedure. The patient was prepped and draped in the usual sterile fashion. Patient position: supine Approach: in Plane, long [place] Local anesthesia: 3cc 1% Lidocaine Injectate: 40mg/ml Kenalog, 2cc 0.5% Ropivacaine Aspiration/Injection: Live sonographic guidance with a curvi-linear transducer was used throughout the procedure. A 25 gauge, 2 inch needle was used for local anesthesia and was guided into the hip joint region. After that, a 22 gauge, 3.5 inch needle was used to place injectate (noted above) into the hip joint. Post-Procedure Instructions: The patient tolerated the procedure well without complication and was discharged in good condition after a short observation period. The patient was instructed to avoid submerging the procedure site in water for 48-72 hours. The patient was instructed to contact me withany questions pertaining to the procedure and to inform me of the results of the procedure in approximately 7-10 days, as needed. Questions regarding general management should be directed to the patient's referring provider and the patient should keep all previously scheduled follow up appointments. Multiple finch images were saved. Impression: Successful sonographically-guided left hip joint steroid injection. Assessment and Plan: Encounter Diagnosis Name Primary? Primary osteoarthritis of left hip Yes Gustavo was seen today for hip pain. Diagnoses and all orders for this visit: Primary osteoarthritis of left hip - triamcinolone acetonide (KENALOG-40) injectable suspension 40 mg - [place] ARTHROCENTESIS ASPIR&/INJ MAJOR JT/BURSA W/US Successful sonographically-guided left hip joint steroid injection. Scribed by Nena Lang ATC for Dr. Ty Napoles. Ty Napoles MD [facility] The scribe's documentation has been prepared under my direction and personally reviewed by me in its entirety. I confirm that the note above accurately reflects all work, treatment, procedures, and medical decision making performed by me. *Portions of this encounter have been generated with [employer] without a human senior drafter. This report may or may not have been corrected for typographical, grammatical, and syntax errors.* documented in this encounter Plan of Treatment Not on file documented as of this encounter Visit Diagnoses Diagnosis Primary osteoarthritis of left hip- Primary Primary localized osteoarthrosis, pelvic region and thigh documented in this encounter Administered Medications Inactive Administered Medications - up to 3 most recent administrations Medication Order MAR Action Action Date Dose Rate Site triamcinolone acetonide (KENALOG-40) injectable suspension 40 mg 40 mg, Intra-arTICular, ONE TIME ONLY, 1 dose, On Ana María 02/26/25 at 1430, RoutineIndications:Primary osteoarthritis of left hip Given 02/26/2025 2:22 PM CDT 40 mg Hip, Left documented in this encounter Care Teams Analysis Consultant Relationship Specialty Start Date End Date Ward Voss DO [address] [id number] PCP - General Family Practice 02/22/23 documented as of this encounter
--- OUTSIDE RECORDS SUMMARY | 2025-02-26 15:29 | XMS_ITS | Clinical Summary ---
Author Organization [facility] Address [address] [place] [address] Care Team Providers Care Cobbler Mckay Name Role Phone Prashant BRAUN MD, Joseph Anthony Unavailable [phone] Gm Nguyễn MD Unavailable [phone] Moe Perez MD Unavailable [phone] Stefano Sánchez MD Unavailable Ward Voss DO Primary Care Provider [phone] Allergies No known active allergies Medications potassium chloride ER (KLOR-CON,K-DUR ) 10 mEq CR tabletIndicatio ns:hypokalemia Take 1 tablet/capsule (10 mEq total) by mouth 2 (two) times a day Active metoprolol tartrate (LOPRESSOR) 25 mg immediate release tablet Take 1 tablet (25 mg total) by mouth 2 (two) times a day 2 Active hydrALAZINE (APRESOLINE) 25 mg tabletIndicatio ns:hypertension Take 1 tablet (25 mg total) by mouth 2 (two) times a day Active lisinopriL (PRINIVIL,ZESTR IL) 10 mg tablet Take 1 tablet (10 mg total) by mouth daily Active atorvastatin (LIPITOR) 40 mg tablet Take 1 tablet (40 mg total) by mouth nightly 4 Active aspirin 81 mg chewable tablet Take 1 tablet (81 mg total) by mouth daily Active dexAMETHasone (DECADRON) 0.1 % ophthalmic suspension INSTILL ONE DROP IN EACH EYE TWO TIMES A DAY 10 mL 11 5 Active triamcinolone (KENALOG) 0.1 % creamIndication s:Rash Apply topically 2 (two) times a day 80 g 5 Active valACYclovir (VALTREX) 1 gram tablet [address] (KJ-TAB) 500 mg tablet,delayed release (DR/EC) TAKE 1 TABLET BY MOUTH EVERY EVENING 5 Active traMADoL (ULTRAM) 50 mg tablet Take 1 tablet (50 mg total) by mouth 2 (two) times a day as needed for pain 30 tablet 5 Active Active Problems Problem Noted Date Diagnosed Date Left hand weakness 01/21/2025 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 Candidacy reviewed. Provided with information sheet and infusion center locations. Daughter () provide AUR paper for review. Family to review and will let office know if they wish to proceed with treatment initiation. Assessment & Plan (02/19/2023 4:04 PM CDT): Blood work reviewed, normal 02/12/23 SLUMS 12/[address] reviewed, brain shrinkage noted. Off [employer] meds: Valium, oxycodone, gabapentin, oxybutynin, tolerodone Urology - consider Myrbetriq Brain imaging tomorrow. Recommend brain MRI. Confusion 01/06/2023 History of 2019 novel coronavirus disease (COVID -19) 02/10/2022 COVID-19 11/26/2021 Assessment & Plan (11/26/2021 8:49 AM CYTOLOGY TECHNOLOGIST): NEG influenza A/B but +covid. Continue tylenol/ibuprofen. Add mucinex for sinus pain & chest congestion. Reviewed red flags; what would warrant ED for more emergent eval. Mr Wright requested MAB infusion. Order entered. Aware that [facility] infusion will call him to set up appt. Abnormal chest CT 08/14/2021 BPH (benign prostatic hyperplasia) 05/26/2021 AAA (abdominal aortic aneurysm) 05/26/2021 Oral candidiasis 05/26/2021 Other emphysema 05/26/2021 Pulmonary nodules 05/26/2021 Sepsis without acute organ dysfunction Acute cystitis with hematuria 05/23/2021 Left hip pain 11/12/2020 Tear of left gluteus medius tendon 08/09/2020 Overview (08/09/2020): Added automatically from request for surgery [id number] Trochanteric bursitis of left hip 06/08/2020 Ischemic chest pain 10/22/2019 Tearing, bilateral 02/21/2019 Adenopathy, cervical 10/17/2018 Aortic atherosclerosis ([facility]/HCC) 03/11/2018 Screening for cardiovascular , respiratory, and genitourinary diseases 03/07/2018 Displaced fracture of second metatarsal bone of left foot with routine healing 01/28/2018 Tinea pedis of both feet 12/31/2017 Urinary tract infection without hematuria 2017 Eczema 07/19/2017 Cyst of skin 07/19/2017 Skin neoplasm 07/19/2017 Skin tag 07/19/2017 Knee pain 07/05/2017 Subacute ethmoidal sinusitis 05/15/2017 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 Lesion of eyelid 06/26/2016 Status post placement of stent in right coronary artery 04/26/2016 Presence of coronary angioplasty implant and gra ft 04/06/2016 S/P coronary artery stent placement 04/06/2016 Leucocytosis 03/28/2016 Mixed hyperlipidemia 03/28/2016 Coronary arteriosclerosis in [place] artery 03/27 Overview (10/22/2019): 03/16 lexiscan nuclear: inferoapical & apical lateral ischemia, EF 64% 03/16 cath: EF 65%, EDP 14, 95% ulcerated mLCx -> FRANDY (jailing small OM), 99% codminant small RCA -> FRANDY, 100% small RPDA 05/19 echo: EF 57%, no significant regional wall motion abnormalities, normal LV diastolic function, mild to mod RV enlargement, normal RVEF, no valve abnormalities, RVSP incalculable Overview: Overview: 03/16 lexiscan nuclear: inferoapical & apical lateral ischemia, EF 64% 03/16 cath: EF 65%, EDP 14, 95% ulcerated mLCx -> FRANDY (jailing small OM), 99% codminant small RCA -> FRANDY, 100% small RPDA Coronary artery disease invo lving [place] coronary artery of [place] heart without angina pectoris 03/27/2016 Overview (11/12/2020): 03/16 lexiscan nuclear: inferoapical & apical lateral ischemia, EF 64% 03/16 cath: EF 65%, EDP 14, 95% ulcerated mLCx -> FRANDY (jailing small OM), 99% codminant small RCA -> FRANDY, 100% small RPDA 05/19 echo: EF 57%, no significant regional wall motion abnormalities, normal LV diastolic function, mild to mod RV enlargement, normal RVEF, no valve abnormalities, RVSP incalculable 08/20 lexiscan nuclear: walked 6 min (104% predicted), clinically/ekg negative, images normal, EF 65% Dyspnea on exertion 02/23/2016 Edema 02/23/2016 History of malignant neoplasm of skin 01/27/2016 Pruritus ani 06/18/2015 Overview (01/05/2017): Anal itching Condyloma acuminatum 06/18/2015 Overview (01/05/2017): Condyloma acuminatum Condyloma acuminatum 06/18/2015 Overview (10/22/2019): Overview: Overview: Condyloma acuminatum Pruritus ani 06/18/2015 Overview (10/22/2019): Overview: Overview: Anal itching Skin neoplasm 12/24/2014 Seborrheic keratoses 05/14/2014 History of skin cancer 05/14/2014 History of malignant neoplasm of skin 05/14/2014 Essential hypertension 03/05/2014 Overview (10/22/2019): Overview: Abdominal aortic US 05/2016 -- abd ao ectasia at 2.9 cm max diameter with non-occlusive athero. Abdominal aortic US 11/2017 -- abd ao ectasia at 2.8 cm max diameter; non- occlusive athero may limit identification of posterior wall Overview: Overview: Abdominal aortic US 05/2016 -- abd ao ectasia at 2.9 cm max diameter with non-occlusive athero. Overview: Overview: Abdominal aortic US 05/2016 -- abd ao ectasia at 2.9 cm max diameter with non-occlusive athero. Abdominal aortic US 11/2017 -- abd ao ectasia at 2.8 cm max diameter; non- occlusive athero may limit identification of posterior wall Low back pain 03/05/2014 Tobacco abuse 03/05/2014 History of tobacco use 03/05/2014 Discoid lupus erythematosus 05/12/2013 Rash 05/05/2013 Actinic keratosis 03/17/2013 Squamous cell carcinoma of skin of trunk 012 Seborrheic keratosis, inflamed 11/01/2011 Actinic keratosis 11/01/2011 Rosacea 09/01/2011 Rotator cuff tendonitis 07/04/2011 Arthralgia of shoulder 07/04/2011 Cellulitis of right hip Encounters Date Type Department Care Team Description 02/20/2025 Telephone [place] [id number] [facility] First Floor [address] [place] [id number] Mena Garcia, A 02/20/2025 Orders Only [facility] [address], [address] [place] [phone] Ina Castanon MD Spondylosis of lumbar region without myelopathy or radiculopathy (Primary Dx) 02/17/2025 2:45 PM CDT - 02/17/2025 11:59 PM CDT Hospital Encounter [facility] [address], [address] [place] [phone] Ina Castanon MD Spondylosis of lumbar region without myelopathy or radiculopathy Discharge Disposition: Discharge to home or self care 02/17/2025 Telephone [facility] at [facility] [address] [facility] [address], [address] [place] [phone] Ina Castanon MD post left lumbar MBB #2 02/13/2025 Telephone [facility] [address] [place] [address] Plog, Meredith 02/13/2025 Telephone [facility] [address] [place] [address] Carolina Rodriguez RN 02/13/2025 Orders Only [facility] Neuro Muscle [address] [facility] 6th [place] [address] [place] [address] Hanh Zhou PA 02/12/2025 2:[address] [facility] [address] [place] [address] Alzheimer disease (HCC) (Primary Dx) 02/11/2025 2:30 PM CDT Office Visit [facility] Memory Diagnostic [address] First Floor [address] [place] [phone] Hanh Zhou PA Alzheimer's disease (HCC) [G30.9, F02.80] (Primary Dx) 02/11/2025 Telephone [facility] Diagnostic [address] First Floor [address] [place] [phone] Ilia Nolen MSW 02/09/2025 2:10 PM CDT Office Visit [facility] Orthopaedic Surgery [address] [facility] 2nd Floor [address] [place] [phone] German Muñoz MD Left hand weakness; Carpal tunnel syndrome of left wrist 02/06/2025 Telephone [facility] [address] [facility] [address], [address] [place] [phone] Ina Castanon MD LMBB SCHEDULED 02/05/2025 Orders Only [facility] at [address], [address] [place] [address] Ina Castanon MD Spondylosis of lumbar region without myelopathy or radiculopathy (Primary Dx) 02/05/2025 Telephone [facility] at [address], [address] [place] [address] Ina Castanon MD #2 LMBB 02/05/2025 Orders Only [facility] Neurosurgery [facility] Office Building [address] [place] [address] Ines Keller NP Left hand weakness (Primary Dx); Carpal tunnel syndrome of left wrist 02/03/2025 3:30 PM CDT Office Visit [facility] [place] [address] [place] [address] Awilda Rodriguez NP Rash (Primary Dx) 02/03/2025 Telephone [facility] Center [address] [facility] First Floor [address] [place] [address] Mena Garcia, RMA Test Results 02/01/2025 Results Follow-Up [facility] Neurosurgery [address] [place] [address] 4 [address] [place] [address] Ines Keller NP EMG/NCV - 01/29/2025 2:00 PM CDT Infusion [facility] [address] [facility] [address] [place] [address] Alzheimer disease (HCC) (Primary Dx) 01/28/2025 11:55 AM CDT - 01/28/2025 11:59 PM CDT Hospital Encounter [facility] [address] [place] [id number] Discharge Disposition: Discharge to home or self care 01/28/2025 11:55 AM CDT - 01/28/2025 11:59 PM CDT Hospital Encounter [facility] [address] [place] [address] Alzheimer's disease (HCC) Discharge Disposition: Discharge to home or self care 01/20/2025 1:00 PM CDT - 01/20/2025 11:59 PM CDT Hospital Encounter [facility] Neurology Testing [address] [place] [address] Left hand weakness Discharge Disposition: Discharge to home or self care 01/15/2025 1:[address] [facility] [address] [facility] [address] [place] [address] Alzheimer disease (HCC) (Primary Dx) 01/15/2025 Telephone [facility] [address] [address], [address] [place] [address] Ina Castanon MD PT order 01/01/2025 1:[address] [facility] [address] [facility] [address] [place] [address] Alzheimer disease (HCC) (Primary Dx) 12/18/2024 1:30 PM CDT Infusion [address] [place] [address] Alzheimer disease (HCC) (Primary Dx) 12/09/2024 2:30 PM CDT Office Visit [facility] Neurosurgery [address] [facility] Office Building [address] [place] [address] Ines Keller NP Left hand weakness (Primary Dx); Spondylosis of lumbar region without myelopathy or radiculopathy 12/04/2024 10:30 AM CYTOLOGY TECHNOLOGIST Infusion [address] [place] [address] Alzheimer disease (HCC) (Primary Dx) 12/03/[address] [place] [address] Rika Temple MD PhD 12/03/2024 Telephone [facility] [address] [facility] [address] [place] [address] Rika Temple MD PhD from Last 3 Months Immunizations Immunization Administration Dates Next Due Influenza, Trivalent, High D ose, Split, Preservative Free, Intramuscular 06/08/2020,07/28/2019,07/23/2018,08/05,07/21/2016,08/02/2015 Influenza, Trivalent, IM (MDV) 5,08/10/2014,08/07/2013,08/07 Influenza, Unspecified 07/01/2021 Pneumococcal Conjugate PCV 13 08/05/2017, 015 Pneumococcal Polysaccharide PPV23 07/28/2019 Tdap 06/15/2019,07/03/2016 Surgical History Surgery Date Site/Laterality Comments POLYPECTOMY APPENDECTOMY 10/01/2005 - 09/30/2006 CATARACT EXTRACTION 10/01/2017 - 09/30/2018 BACK SURGERY 10/01/2009 - 09/30/2010 L4-L5 KNEE SURGERY 10/01/2014 - 09/30/2015 COLONOSCOPY CARDIAC STENT PLACEMENT 10/01/2015 - 09/30/2016 FLUORO GUIDED INJECTION SHOULDER LEFT 09/29/2021 Lef t LUMBAR SPINE SURGERY x2 TOTAL HIP ARTHROPLASTY Right MOHS SURGERY LUMBAR PUNCTURE WO INJECTION , DIAGNOSTIC 05/15/2023 N/A SPINE SURGERY 2021 KNEE SURGERY HIP SURGERY Medical History Medical History Date Comments Personal history of diseases of skin or subcutaneous tissue History of rosacea - (Added by TW Conv) Personal history of diseases of skin or subcutaneous tissue History of seborrheic kerato sis - (Added by TW Conv) Malignant neoplasm of skin Skin cancer - (Added by TW Conv) Skin cancer IBS (irritable bowel syndrome) Sleep apnea H/O heart artery stent Hypertension Asthma Hypercholesteremia Depression Small intestinal bacterial overgrowth (SIBO) BPH (benign prostatic hyperplasia) DDD (degenerative disc disease), lumbosacral RLS (restless legs syndrome) DVT of lower extremity (deep venous thrombosis) (HCC) RLE COPD (chronic obstructive pu lmonary disease) (HCC) Lupus AAA (abdominal aortic aneurysm) History of COVID-19 x2 Coronary artery disease Dementia (HCC) Disc disorder of lumbar region Lumbar stenosis Low back pain Family History Medical History Relation Name Comments Cancer Brother 1 Hypertension Brother 1 Hypertension Brother 2 Brain cancer Brother 3 Dementia Father Heart disease Father Family history of cardiac disorder - (Added by TW Conv) Hypertension Father Family history of hypertension - (Added by TW Conv) Heart disease Maternal Grandfather Heart disease Maternal Grandmother Cataracts Mother Dementia Mother Heart disease Mother Family history of cardiac disorder - (Added by TW Conv) Hypertension Mother Family history of hypertension - (Added by TW Conv) Heart disease Paternal Grandfather Fuchs' dystrophy Neg Hx Glaucoma Neg Hx Macular degeneration Neg Hx Retinal detachment Neg Hx Relation Name Status Comments Brother 1 Brother 2 Alive Brother 3 Alive Father Maternal Grandfather Maternal Grandmother Mother Paternal Grandfather Social History Tobacco Use Types Packs/Day Years Used Date Smoking Tobacco: Former Cigarettes 1 55 1 96 - 2015 Smokeless Tobacco: Never Tobacco Cessation:Counseling Given: Not Answered Alcohol Use Standard Drinks/Week Comments Yes 0 (1 standard drink = 0.6 oz pur e alcohol) AUDIT-C Answer Date Recorded Q1: How often do you have a drink containing alcohol? Never 11/14/2024 Q2: How many drinks containi ng alcohol do you have on a typical day when you are drinking? Patient does not drink Q3: How often do you have si x or more drinks on one occasion? Never 11/14/2024 Personal Safety Answer Date Recorded Have you ever been in or are you currently in a harmful physical or emotional relationship or is someone making you feel afraid or unsafe? 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 Not on file Not on file Obstetrics History Last Filed Vital Signs Vital Sign Reading Time Taken Comments Blood Pressure 161/79 02/17/2025 3:36 PM CDT Pulse 66 02/17/2025 3:36 PM CDT Temperature 36.2 C (97.2 F) 02/17/2025 2:59 PM CDT Respiratory Rate 16 02/17/2025 3:36 PM CDT Oxygen Saturation 96% 02/17/2025 3:36 PM CDT Inhaled Oxygen Concentration - - Weight 109.8 kg (242 lb) 02/17/2025 2:59 PM CDT Height 182.9 cm (6') 02/17/2025 2:59 PM CDT Body Mass Index 32.82 02/17/2025 2:59 PM CDT Plan of Treatment Health Maintenance Due Date Last Done Comments Depression Screening 1950 Hepatitis C Screening 1948 Hepatitis B Screening 1966 Lung Cancer Screening 1998 Zoster Vaccine (1 of 2) 1998 Well Visit 65+ 2013 Influenza Vaccine (Season Ended) 2025 07/01/2021, 06/08/2020, 07/28/2019, Additional history exists Fall Risk Assessment 02/17/2026 02/17/2025, 10/31/2024, 09/29/2024, Additional history exists DTaP/Tdap/Td Vaccine (3 - Td or Tdap) 06/15/2029 06/15/2019, 07/03/2016 Pneumococcal vaccine 65+ Completed 019, 08/05/2017, 05/27/2015 Abdominal Aortic Aneurysm (A AA) Screen Completed 08/17/2021, 05/26/2021, 05/25/2021, Additional history exists Goals Goal Patient Goal Type Associated Problems Recent Progress Patient-Stated? Author CCM Chronic Pain Care Plan Chronic Care Management No Nathaly Shoemaker RN Note: Problem: Chronic Pain Goals: 1. Minimize further functional decline 2. Maximize quality of life 3. Control pain Strategies: - Activity/exercise program recommendation - Conservative stepwise pain medicine strategy with multi-disciplinary approach - Recommend healthy lifestyle strategies and compensatory methods as needed Reduce the likelihood of falling Lifestyle Nathaly Medina RN Note: Below are four things you can do to prevent falls: Begin an exercise program to improve your leg strength & balance Ask your doctor or pharmacist to review your medicines Get annual eye check-ups & update your eyeglasses Make your home safer by: Removing clutter & tripping hazards Putting railings on all stairs & adding grab bars in the bathroom Having good lighting, especially on stairs Contact your local community or senior center for information on exercise, fall prevention programs, or options for improving home safety. Medical Devices Implanted Type Area Oil Lease Buyer Device Identifier Shelf Expiration Date Model / Serial / Lot Stents Stent N/A: Heart Description:2 stents Hip Replacement Right: Hip Lumbar Fusion Spine Lumbar Procedures Procedure Name Priority Date/Time Associated Diagnosis Comments PAIN MGMT IMAGING LUMBAR/SACRAL FACET/ MEDIAL BRANCH BLOCK LEFT Schedule Routine, Read Routine (OP Routine) 02/17/2025 3:32 PM CDT Spondylosis of lumbar region without myelopathy or radiculopathy PET/CT AMYLOID BRAIN Schedule Routine, Read Routine (OP Routine) 01/28/2025 1:39 PM CDT Alzheimer's disease (HCC) EMG/NCV Routine 01/20/2025 1:20 PM CDT Left hand weakness US ABDOMINAL AORTA Schedule Routine, Read Routine (OP Routine) 08/17/2021 10:31 AM CYTOLOGY TECHNOLOGIST Abdominal aortic ectasia Atherosclerotic heart disease of [place] coronary artery with angina pectoris Malignant hypertension from Last 3 Months or Most Recently Relevant to Health Maintenance Results * Imaging Lumbar/Sacral Facet Medial Branch Block Left (93041) (02/17/2025 3:32 PM CDT) Narrative [facility] - 02/17/2025 3:32 PM CDT The images from this study are not interpreted by Radiology. Please refer to the physician's procedure / OR operative note. Ina Castanon MD IMG PAIN MGMT PROCEDURES F inal Result [facility] * PET/CT Amyloid Brain (01/28/2025 1:39 PM CDT) Anatomical Region Laterality Modality Positron Emissio n Tomography (PET) 01/28/2025 3:19 PM CDT Impressions 01/28/2025 4:04 PM CDT Negative amyloid-PET study, indicating no to sparse beta-amyloid neuritic plaques. General comments on amyloid-PET interpretation: A negative amyloid-PET study indicates sparse to no neuritic plaques and is inconsistent with Alzheimer disease at the time of the study. A negative study reduces the likelihood that the patient's cognitive impairment is due to Alzheimer disease. A positive amyloid-PET study indicates moderate to frequent neuritic plaques which is the amount present in patients with Alzheimer disease. However, a positive amyloid-PET study does not establish the diagnosis of Alzheimer disease. Moderate to frequent neuritic plaques can also be present in patients with other neurological conditions as well as in older people with normal cognition. Dictated by: Nehal Washington MD The radiology attending physician has personally reviewed this study, and had reviewed and/or edited this written report and agrees with it. Electronically signed by: Betsy Cedeño MD, Ph.D Narrative 01/28/2025 4:04 PM CDT EXAMINATION: BRAIN AMYLOID-PET/CT IMAGING DATE OF STUDY: 01/28/2025 SCANNER: [employer] RADIOPHARMACEUTICAL: 11.42 mCi F-18 florbetapir i.v. HISTORY: 74-year-old man with Alzheimer's disease on lecanemab undergoing evaluation for cognitive impairment undergoing re-assessment after treatment for brain amyloid deposition. TECHNIQUE: At 30 minutes after injection of tracer, non-contrast CT images of the head were obtained for attenuation correction and for fusion with emission PET images to allow for anatomical localization of PET findings. Standard emission PET imaging of the brain was then performed. The study was interpreted on the [facility] workstation. COMPARISON CT/MRI: Brain MRI 03/18/2023 FINDINGS: There is normal cortical-white matter contrast in the cerebellum. There is normal cortical-white matter contrast throughout the cerebrum. There are no foci of increased cortical activity. Incidental CT findings: Bilateral lens replacement. Procedure Note Betys Medrano MD PhD - 01/28/2025 EXAMINATION: BRAIN AMYLOID-PET/CT IMAGING DATE OF STUDY: 01/28/2025 SCANNER: [employer] N mCT RADIOPHARMACEUTICAL: 11.42 mCi F-18 florbetapir i.v. HISTORY: 74-year-old man with Alzheimer's disease on lecanemab undergoing evaluation for cognitive impairment undergoing re-assessment after treatment for brain amyloid deposition. TECHNIQUE: At 30 minutes after injection of tracer, non-contrast CT images of the head were obtained for attenuation correction and for fusion with emission PET images to allow for anatomical localization of PET findings. Standard emission PET imaging of the brain was then performed. The study was interpreted on the [facility] workstation. COMPARISON CT/MRI: Brain MRI 03/18/2023 FINDINGS: There is normal cortical-white matter contrast in the cerebellum. There is normal cortical-white matter contrast throughout the cerebrum. There are no foci of increased cortical activity. Incidental CT findings: Bilateral lens replacement. IMPRESSION: Negative amyloid-PET study, indicating no to sparse beta-amyloid neuritic plaques. General comments on amyloid-PET interpretation: A negative amyloid-PET study indicates sparse to no neuritic plaques and is inconsistent with Alzheimer disease at the time of the study. A negative study reduces the likelihood that the patient's cognitive impairment is due to Alzheimer disease. A positive amyloid-PET study indicates moderate to frequent neuritic plaques which is the amount present in patients with Alzheimer disease. However, a positive amyloid-PET study does not establish the diagnosis of Alzheimer disease. Moderate to frequent neuritic plaques can also be present in patients with other neurological conditions as well as in older people with normal cognition. Dictated by: Nehal Washington MD The radiology attending physician has personally reviewed this study, and had reviewed and/or edited this written report and agrees with it. Electronically signed by: Betsy Cedeño MD, Ph.D Hanh CASTILLO IMG PET PROCEDURES F inal Result * EMG/NCV - (01/20/2025 1:20 PM CDT) Anatomical Region Laterality Modality EMG Narrative Procedure Note Jimmie Guerra MD - 01/20/2025 12:00 AM CDT REQUESTING PHYSICIAN Dr. Chacon INDICATIONS FOR STUDY Mr. Jose Wright is a 74-year-old gentleman with a chief complaint ofleft hand numbness and paresthesias. ELECTRODIAGNOSTIC REPORT Left median palmar orthodromic, left ulnar palmar orthodromic sensorynerve conduction study revealed prolonged SNAP peak latencies, reducedSNAP amplitudes and slow SNCVs. Left radial antidromic sensory nerveconduction studies revealed normal SNAP peak latency, SNAP peak amplitudeand SNCV. Left median, and left ulnar motor nerve conduction studiesrevealed normal distal latencies, reduced compound motor action potentialamplitudes, normal motor nerve velocities and normal F-wave latencies.The reduction in amplitude was technical. EMG Concentric needle electrode sampled left abductor pollicis brevis,abductor digiti minimi, extensor indicis proprius, as well as dorsalinterossei, flexor carpi ulnaris, pronator teres, biceps, deltoid,cervical paraspinal muscles. No abnormal insertion or spontaneousactivity was generated. Motor unit potentials were normal. IMPRESSION This is an abnormal electrodiagnostic study with evidence of. 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 Clinical correlation recommended. Job ID/Internal Job ID: [id number] us Ines Keller NP NEUROLOGY ORDERABLES Fin al Result * US Abdominal Aorta (08/17/2021 10:31 AM CYTOLOGY TECHNOLOGIST) Anatomical Region Laterality Modality Abdomen N/A Ultrasound 08/17/2021 10:3 9 AM CYTOLOGY TECHNOLOGIST Impressions 08/17/2021 10:40 AM CYTOLOGY TECHNOLOGIST Stable fusiform infrarenal aortic aneurysm. Dictated by: Damion Montez M.D. The radiology attending physician has personally reviewed this study, and had reviewed and/or edited this written report and agrees with it. Electronically signed by: Ryne Hernandez M.D. Narrative 08/17/2021 10:40 AM CYTOLOGY TECHNOLOGIST EXAMINATION: AORTA SONOGRAM HISTORY: Infrarenal aortic aneurysm follow-up COMPARISON: Comparison is made with CT 05/25/2021 FINDINGS: Aorta: Fusiform infrarenal aortic aneurysm is stable when allowing for differences in technique measuring 3.6 x 3.6 cm. The remainder of the abdominal aorta is normal in caliber. There is atherosclerotic plaque. Iliac arteries: The left proximal common iliac artery measures 1.0 cm and the right 1.2 cm. Procedure Note Ryne Hernandez MD - 08/17/2021 EXAMINATION: AORTA SONOGRAM HISTORY: Infrarenal aortic aneurysm follow-up COMPARISON: Comparison is made with CT 05/25/2021 FINDINGS: Aorta: Fusiform infrarenal aortic aneurysm is stable when allowing for differences in technique measuring 3.6 x 3.6 cm. The remainder of the abdominal aorta is normal in caliber. There is atherosclerotic plaque. Iliac arteries: The left proximal common iliac artery measures 1.0 cm and the right 1.2 cm. IMPRESSION: Stable fusiform infrarenal aortic aneurysm. Dictated by: Damion Montez M.D. The radiology attending physician has personally reviewed this study, and had reviewed and/or edited this written report and agrees with it. Electronically signed by: Ryne Hernandez M.D. Juan Francisco Cerda III, MD [facility] PROCEDURES F inal Result from Last 3 Months or Most Recently Relevant to Health Maintenance Insurance MEDICARE [facility] MEDICARE SUPPLEMENT INSURANCE * Guarantor: Jose Wright Account Type Relation to Patient Date of Phone Billing Address Personal/Family Self 1950 [phone] (Work) [address], [place] [id number] MEDICARE [facility] MEDICARE [facility] CHOICE PLUS MEDICARE FORMERLY [facility] MEDICARE SUPPLEMENT INSURANCE Advance Directives For more information, please contact: [phone] * Full Code (Latest Code Status on File) Date Activated Date Inactivated Comments 01/06/2023 9:12 PM 01/07/2023 5:33 PM * Full Code Date Activated Date Inactivated Comments 05/24/2021 5:54 AM 05/27/2021 6:56 PM Care Teams Cobbler Mckay Relationship Specialty Start Date End Date Ward Voss DO [address] [place] [address] PCP - General Family Medicine 02/14/23 Juan Francisco Cerda III, MD [address] [place], [place] [id number] Consulting Physician Cardiology 11/24/19 Gm Nguyễn MD [address] [place], [place] [id number] Consulting Physician Urology 05/26/21 Moe Perez MD [address] [place] [address] Family Medicine 05/27/21 Stefano Sánchez MD [address] [place] [address] [place] [address] Consulting Physician Ophthalmology 01/11/22
--- OUTSIDE RECORDS SUMMARY | 2025-02-26 15:29 | XMS_ITS | Encounter Summary ---
Author Organization [facility] Address [address] [place] [address] Care Team Providers Care Soldering Machine Feeder Name Role Phone Ward Voss Primary Care Provider [phone] Reason for Visit * Reason Onset Date Comments UTI vs SSTI from recent hip arthroplasty 01/08/2023 SPOKE WITH ARIELLA/ DR. TERRELL [place] OFFICE Encounter Details Date Type Department Care Team (Late st Contact Info) Description 01/08/2023 Telephone [facility] Admitting [address] [place] [address] [place] [address] [facility] [address] [place] [address] UTI vs SSTI from recent hip arthroplasty (SPOKE WITH ARIELLA/ DR. 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 No / Unsure 12/26/2022 12:28 PM CDT documented as of this encounter Plan of Treatment Not on file documented as of this encounter Visit Diagnoses Not on filedocumented in this encounter Care Teams Soldering Machine Feeder Relationship Specialty Start Date End Date Ward Voss DO [facility] [id number] PCP - General Family Practice 02/22/23 documented as of this encounter
--- OUTSIDE RECORDS SUMMARY | 2025-02-26 15:29 | XMS_ITS ---
Author Organization [facility] Address [address] [place] [address] Care Team Providers Care Airport Operations Supervisor Name Role Phone Prashant BRAUN MD, JuanF rancisco Ochoa Unavailable [phone] Gm Nguyễn MD Unavailable [phone] Moe Perez MD Unavailable [phone] Stefano Sánchez MD Unavailable [phone] Ward Voss DO Primary Care Provider [phone] Active Problems Problem Noted Date Diagnosed Date [...] Head CT reviewed, brain shrinkage noted. Off MANAGER BUSINESS PLANNING meds: Valium, oxycodone, gabapentin, oxybutynin, tolerodone Urology - consider Myrbetriq Brain imaging tomorrow. Recommend brain MRI. Confusion 01/06/2023 History of 2019 novel coronavirus disease (COVID -19) 02/10/2022 COVID-19 11/26/2021 Assessment & Plan (11/26/2021 8:49 AM REGULATORY INTERN): NEG influenza A/B but +covid. Continue tylenol/ibuprofen. [...] (08/09/2020): Added automatically from request for surgery [id number] Trochanteric bursitis of left hip 06/08/2020 Ischemic chest pain 10/22/2019 Tearing, bilateral 02/21/2019 Adenopathy, cervical 10/17/2018 Aortic atherosclerosis (CMS/HCC) 03/11/2018 Screening for cardiovascular , respiratory, and [...] 03/28/2016 Mixed hyperlipidemia 03/28/2016 Coronary arteriosclerosis in [place] artery 03/27 Overview (10/22/2019): 03/16 lexiscan nuclear: [...] small RPDA Coronary artery disease invo lving [place] coronary artery of [place] heart without angina pectoris 03/27/2016 Overview (11/12/2020): [...] of shoulder 07/04/2011 Cellulitis of right hip Current Treatment and Therapy Plans No current plan information found. Other Current Plans MONTHLY MAINTENANCE LECANEMAB (LEQEMBI) - ALZHEIMER'S DISEASE (ONLY APPROVED FOR USE BY [facility] NEUROLOGY [facility]DC TEAM)* Plan Start Date:03/19/2025 Plan Provider:Hanh Zhou PA Linked Problems Alzheimer disease (HCC) Treatment Medications No medications scheduled. Past Treatment and Therapy Plans Lifetime Dose Tracking * Chemical Lifetime Dose Automatic Entry Manual Entr y Fluoro Time 1.328 minutes 1.328 minutes 0 minutes Air kerma at the reference point (Ka,r) 27.9 mGy 2 7.9 mGy 0 mGy
--- OUTSIDE RECORDS SUMMARY | 2025-02-26 15:29 | XMS_ITS | Encounter Summary ---
Author Organization [facility] Address [address] [place] [address] Phone Care Team Providers Care Supervisor Dog License Officer Name Role Phone Prashant BRAUN MD, Joseph Anthony Unavailable [phone] Gm Nguyễn MD Unavailable [phone] Moe Perez MD Unavailable [phone] Stefano Sánchez MD Unavailable [phone] Ward Voss DO Primary Care Provider [phone] Encounter Details Date Type Department Care Team (Late st Contact Info) Description 02/01/2025 Results Follow-Up [facility] Neurosurgery [address] [place] [address] Ines Keller, FLACO [address] [place] [address] EMG/NCV - Social History Tobacco Use Types Packs/Day Years Used Date Smoking Tobacco: Former Cigarettes 1 55 1 961 - 2016 Smokeless Tobacco: Never Alcohol Use Standard Drinks/Week [...] on file 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 Gender Identity Male 11/27/2021 7:40 AM BOOM TRUCK DRIVER Sexual Orientation Straight 11/27/2021 7: 40 AM BOOM TRUCK DRIVER 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 on file Not on file Not on file documented as of this encounter Miscellaneous Notes * Telephone Encounter - Mariela Brunson CMA - 02/05/2025 1:26 PM CDT Patient spouse calling for EMG results, made her aware of message from MR, says they are available the rest of the afternoon if MR is able to call documented in this encounter Plan of Treatment Not on file documented as of this encounter Goals Goal Patient Goal Type Associated Problems [...] Reduce the likelihood of falling Lifestyle Nathaly Medina, ROSSANA Note: Below are four things you can [...] programs, or options for improving home safety. documented as of this encounter Visit Diagnoses Not on filedocumented in this encounter Care Teams Supervisor Dog License Officer Relationship Specialty Start Date End Date aWrd Voss DO [address] [place] [address] [place] [address] PCP - General Family Medicine 02/14/23 Juan Francisco Cerda III, MD [address] [facility] [address] [place], [place] [id number] Consulting Physician Cardiology 11/24/19 Gm Nguyễn MD [address] [facility] [address] [place], [place] [phone] Consulting Physician Urology 05/26/21 Moe Perez MD [address] [place] [address] [place] [address] Family Medicine 05/27/21 Stefano Sánchez MD [address] [place] [address] [place] [address] Consulting Physician Ophthalmology 01/11/22 documented as of this encounter
--- OUTSIDE RECORDS SUMMARY | 2025-02-26 15:29 | XMS_ITS | Clinical Summary ---
Author Organization [facility] Address [address] [place] [address] Care Team Providers Care Superintendent Marine Name Role Phone Calvin Rodriguez MD Primary Care Provider Saad jackson Source Comments [facility] e(ye)BRAIN,non-owned Affiliates and Associated Physician Practices is amultiple site organization consisting of ambulatory clinics and hospital sitesin [place], [place] and [place]. This disclosure is being madepursuant to the Care Everywhere program and may not contain all information available regarding this patient. Last updated 18.[facility] e(ye)BRAIN Allergies No known active allergies Medications * Be aware that medications may not be up to date on this document. Alwaysverify current medications with the patient. diazepam (VALIUM) 5 MG tablet Take 5 mg by mouth 2 times daily as needed for Anxiety Active aspirin (ASPIRIN) 81 MG tablet Take 81 mg by mouth every Sunday, Sunday & Sunday Active tamsulosin (FLOMAX) 0.4 MG capsule Take 0.4 mg by mouth once daily Take 30 minutes after a meal at the same time each day. Active tolterodine (DETROL) 2 MG tablet Take 2 mg by mouth 2 times daily Active acetaminophen (TYLENOL) 500 MG tablet Take 1,000 mg by mouth 2 times daily as needed for Fever or Pain Maximum allowable Acetaminophen amount = 4 Grams (4000 mg) / 24 hours. Active lisinopril (PRINIVIL; ZESTRIL) 20 MG tablet Take 1 tablet by mouth once daily 90 tablet 1 0 Active potassium chloride ER (KLOR-CON 10) 10 MEQ tablet Take 1 tablet by mouth 2 times daily 180 tablet 3 0 Active meloxicam (MOBIC) 7.5 MG tablet Take 7.5 mg by mouth 2 times daily Active hydrALAZINE (APRESOLINE) 50 MG tablet Take 1 tablet by mouth twice daily 180 tablet 3 0 Active metoprolol tartrate (LOPRESSOR) 25 MG tablet Take 1 tablet by mouth twice daily 180 tablet 3 0 Active atorvastatin (LIPITOR) 40 MG tablet TAKE 1 TABLET BY MOUTH AT BEDTIME 30 tablet 5 0 Active Active Problems Problem Noted Date Diagnosed Date S/P coronary artery stent placement 04/06/2016 Mixed hyperlipidemia 03/28/2016 Coronary artery disease invo lving [place] coronary artery of [place] heart without angina pectoris 03/27/2016 Overview (08/12/2020): 03/16 lexiscan nuclear: inferoapical & apical lateral [...] predicted), clinically/ekg negative, images normal, EF 65% Essential hypertension 03/23/2016 Overview (12/19/2017): Abdominal aortic US 05/2016 -- abd ao ectasia at 2.9 cm max diameter with non-occlusive athero. Abdominal aortic US 11/2017 -- abd ao ectasia at 2.8 cm max diameter; non- occlusive athero may limit identification of posterior wall Resolved Problems Problem Noted Date Diagnosed Date Resolved Date Tobacco abuse 03/28/2016 11/24/2016 Smoking 03/23/2016 11/24/2016 Overview (12/31/2024): IMO 12/31/2024 Family History Medical History Relation Name Comments Heart Surgery Father [place] Mother Relation Name Status Comments Brother Alive Father CABG at 72 Mother HI at 70 Social History Tobacco Use Types Packs/Day Years Used Date Smoking Tobacco: Former Cigarettes 1.3 50 Alcohol Use Standard Drinks/Week Comments Yes 0 (1 standard drink = 0.6 oz pur e alcohol) Sex and Gender Information Value Date Recorded Sex Assigned at Not on file Legal Sex Male 2:20 PM CDT Gender Identity Not on file Sexual Orientation Not on file Last Filed Vital Signs Vital Sign Reading Time Taken Comments Blood Pressure 138/84 08/12/2020 1:24 PM FOUNTAIN SUPERVISOR Pulse 60 08/12/2020 1:24 PM FOUNTAIN SUPERVISOR Temperature - - Respiratory Rate - - Oxygen Saturation 98% 05/27/2019 12:53 PM CDT Inhaled Oxygen Concentration - - Weight 107 kg (236 lb) 08/12/2020 1:24 PM FOUNTAIN SUPERVISOR Height 182.9 cm (6') 08/12/2020 1:24 PM FOUNTAIN SUPERVISOR Body Mass Index 32.01 08/12/2020 1:24 PM FOUNTAIN SUPERVISOR Plan of Treatment Health Maintenance Due Date Last Done Comments HEPATITIS C SCREENING 05/05/1968 DTAP/TDAP/TD VACCINES (1 - Tdap) 1967 PNEUMOCOCCAL VACCINE 50+ (1 of 1 - PCV) 1998 ZOSTER VACCINE (1 of 2) 1998 Respiratory Syncytial Virus (RSV) Vaccine Pt: or over 60 yrs (1 - 1-dose 75+ series) 2023 COVID-19 VACCINE ( - season) 2024 DEPRESSION SCREENING 10/01/2024 INFLUENZA VACCINE (Season Ended) 2025 06/08/2020, 07/28/2019, 07/23/2018, Additional history exists HEPATITIS B VACCINE Aged Out No longe r eligible based on patient's age to complete this topic HIB VACCINE Aged Out No longer eligi ble based on patient's age to complete this topic HPV VACCINE Aged Out No longer eligi ble based on patient's age to complete this topic MENINGOCOCCAL (Group B) VACCINE SHARED DECISION-MAKING Aged Out No longer eligible based on patient's age to complete this topic MENINGOCOCCAL GROUPS A/C/Y/W VACCINE Aged Out No longer eligible based on patient's age to complete this topic Insurance [facility] Care Teams Superintendent Marine Relationship Specialty Start Date End Date Calvin Rodriguez MD PCP - General Internal Medicine 02/23/16
--- OUTSIDE RECORDS SUMMARY | 2025-02-26 15:29 | XMS_ITS | Referral Summary ---
Author Organization [facility] Address [address] [place] [address] Care Team Providers Care Drapery Seamstress Name Role Phone Prashnat BRAUN MD, Juan Francisco Ochoa Unavailable [phone] Gm Nguyễn MD Unavailable Moe Perez MD Unavailable Stefano Sánchez MD Unavailable [phone] Ward Voss DO Primary Care Provider [phone] Encounters Date Type Department Care Team Description 02/20/2025 Telephone [facility] First Floor [address] [place] [address] Mena Garcia, A 02/20/2025 Orders Only [facility] [address], [address] [place] [address] Ina Castanon MD Spondylosis of lumbar region without myelopathy or radiculopathy (Primary Dx) 02/17/2025 Telephone [facility] [address], [address] [place] [address] Ina Castanon MD post left lumbar MBB #2 02/17/2025 2:45 PM CDT - 02/17/2025 11:59 PM CDT Hospital Encounter [facility] [place] [address] [facility] [address], [address] [place] [address] Ina Castanon MD Spondylosis of lumbar region without myelopathy or radiculopathy Discharge Disposition: Discharge to home or self care 02/13/2025 Telephone [facility] [place] [address] [place] [address] Meredith Chatman 02/13/2025 Telephone [facility] [place] [address] [place] [address] Carolina oRdriguez RN 02/13/2025 Orders Only [facility] [address] [facility] 6th [place] [address] [place] [address] Hanh Zhou PA 02/12/2025 2:00 PM CDT Infusion [facility] [place] [address] [place] [address] Alzheimer disease (HCC) (Primary Dx) 02/11/2025 Telephone [facility] [address] [place] [address] First Floor [address] [place] [address] Ilia Nolen MSW 02/11/2025 2:30 PM CDT Office Visit [facility] [address] [place] [address] First Floor [address] [place] [address] Hanh Zhou PA Alzheimer's disease (HCC) [G30.9, F02.80] (Primary Dx) 02/09/2025 2:10 PM CDT Office Visit [facility] [address] [facility] 2nd Floor [address] [place] [address] German Muñoz MD Left hand weakness; Carpal tunnel syndrome of left wrist 02/06/2025 Telephone [facility] at [address], [address] [place] [address] Ina Castanon MD LMBB SCHEDULED 02/05/2025 Orders Only [facility] at [address], [address] [place] [address] Ina Castanon MD Spondylosis of lumbar region without myelopathy or radiculopathy (Primary Dx) 02/05/2025 Telephone [facility] at [address], [address] [place] [address] Ina Castanon MD #2 LMBB 02/05/2025 Orders Only [facility] [address] [place] [address] Office Building [address] [place] [address] Ines Keller NP Left hand weakness (Primary Dx); Carpal tunnel syndrome of left wrist 02/03/2025 3:30 PM CDT Office Visit [facility] [place] [address] [place] [address] Awilda Rodriguez NP Rash (Primary Dx) 02/03/2025 Telephone [facility] [address] [facility] First Floor [address] [place] [address] Mena Garcia, RMA Test Results 02/01/2025 Results Follow-Up [facility] [address] [place] [address] 4 [address] [place] [address] Ines Keller NP EMG/NCV - 01/29/2025 2:00 PM CDT Infusion [facility] [address] [facility] [address] [place] [address] Alzheimer disease (HCC) (Primary Dx) 01/28/2025 11:55 AM CDT - 01/28/2025 11:59 PM CDT Hospital Encounter [facility] [address] [place] [id number] Discharge Disposition: Discharge to home or self care 01/28/2025 11:55 AM CDT - 01/28/2025 11:59 PM CDT Hospital Encounter [facility] [address] [place] [address] Alzheimer's disease (HCC) Discharge Disposition: Discharge to home or self care 01/20/2025 1:00 PM CDT - 01/20/2025 11:59 PM CDT Hospital Encounter [facility] [address] [place] [address] Left hand weakness Discharge Disposition: Discharge to home or self care 01/15/2025 Telephone [facility] [address] [address], [address] [place] [address] Ina Castanon MD PT order 01/15/2025 1:00 PM CDT Infusion [facility] [address] [place] [address] Alzheimer disease (HCC) (Primary Dx) 01/01/2025 1:00 PM CDT Infusion [facility] [address] [place] [address] Alzheimer disease (HCC) (Primary Dx) 12/18/2024 1:30 PM CDT Infusion [facility] [address] [place] [address] Alzheimer disease (HCC) (Primary Dx) 12/09/2024 2:30 PM CDT Office Visit [facility] [address] [facility] Medical Office Building [address] [place] [address] Ines Keller NP Left hand weakness (Primary Dx); Spondylosis of lumbar region without myelopathy or radiculopathy 12/04/2024 10:30 AM [employer] Infusion [address] [place] [address] Alzheimer disease (HCC) (Primary Dx) 12/03/2024 Telephone [facility] [address] [facility] [address] [place] [address] Rika Temple MD PhD 12/03/2024 Telephone [facility] 4 [facility] [address] [place] [address] Rika Temple MD PhD from Last 3 Months Allergies No known active allergies Medications potassium [...] Head CT reviewed, brain shrinkage noted. Off BROKER IN CHARGE meds: Valium, oxycodone, gabapentin, oxybutynin, tolerodone Urology - consider Myrbetriq Brain imaging tomorrow. Recommend brain MRI. Confusion 01/06/2023 History of 2019 novel coronavirus disease (COVID -19) 02/10/2022 COVID-19 11/26/2021 Assessment & Plan (11/26/2021 8:49 AM ADVANCED ANALYTICS ASSOCIATE): NEG influenza A/B but +covid. Continue tylenol/ibuprofen. [...] (08/09/2020): Added automatically from request for surgery [id number] Trochanteric bursitis of left hip 06/08/2020 Ischemic [...] 03/28/2016 Mixed hyperlipidemia 03/28/2016 Coronary arteriosclerosis in [place] artery 03/27 Overview (10/22/2019): 03/16 lexiscan nuclear: [...] small RPDA Coronary artery disease invo lving [place] coronary artery of [place] heart without angina pectoris 03/27/2016 Overview (11/12/2020): [...] of shoulder 07/04/2011 Cellulitis of right hip Immunizations Immunization Administration Dates Next Due Influenza, Trivalent, High D ose, Split, Preservative Free, Intramuscular 06/08/2020,07/28/2019,07/23/2018,08/05,07/21/2016,08/02/2015 Influenza, Trivalent, IM (MDV) 5,08/10/2014,08/07/2013,08/07 Influenza, Unspecified 07/01/2021 Pneumococcal Conjugate PCV 13 08/05/2017, 015 Pneumococcal Polysaccharide PPV23 07/28/2019 Tdap 06/15/2019,07/03/2016 Social History Tobacco Use Types Packs/Day Years Used Date Smoking Tobacco: Former Cigarettes 1 55 1 961 - 2016 Smokeless Tobacco: Never Tobacco Cessation:Counseling Given: Not [...] on file Legal Sex Male 2:04 AM AD[employer]ANCED ANALYTICS ASSOCIATE Gender Identity Male 11/27/2021 7:40 AM ADVANCED ANALYTICS ASSOCIATE Sexual Orientation Straight 11/27/2021 7: 40 AM ADVANCED ANALYTICS ASSOCIATE 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 Medical Devices Implanted Type Area Occupancy Specialist Device Identifier Shelf Expiration Date Model / [...] Read Routine (OP Routine) 08/17/2021 10:31 AM ADVANCED ANALYTICS ASSOCIATE Abdominal aortic ectasia Atherosclerotic heart disease of [place] coronary artery with angina pectoris Malignant hypertension from Last 3 Months or Most Recently Relevant to Health Maintenance Results * Imaging Lumbar/Sacral Facet Medial Branch Block Left ([id number]) (02/17/2025 3:32 PM CDT) Narrative RAD_PACS_[facility] - 02/17/2025 3:32 PM CDT The images from this study are not interpreted by Radiology. Please refer to the physician's procedure / OR operative note. [facility] Arie Castanon MD IM PAIN MGMT PROCEDURES F inal Result RAD_PACS_BJWCH [...] AMYLOID-PET/CT IMAGING DATE OF STUDY: 01/28/2025 SCANNER: [facility] N mCT RADIOPHARMACEUTICAL: 11.42 mCi F-18 florbetapir [...] performed. The study was interpreted on the hhgregg workstation. COMPARISON CT/MRI: Brain MRI 03/18/2023 FINDINGS: There is normal cortical-white matter contrast in the cerebellum. There is normal cortical-white matter contrast throughout the cerebrum. There are no foci of increased cortical activity. Incidental CT findings: Bilateral lens replacement. Procedure Note Betsy Medrano MD PhD - 01/28/2025 EXAMINATION: BRAIN AMYLOID-PET/CT IMAGING DATE OF STUDY: 01/28/2025 SCANNER: [facility] N mCT RADIOPHARMACEUTICAL: 11.42 mCi F-18 florbetapir [...] performed. The study was interpreted on the hhgregg workstation. COMPARISON CT/MRI: Brain MRI 03/18/2023 FINDINGS: [...] Electronically signed by: Betsy Cedeño MD, Ph.D us Hanh CASTILLO IMG PET PROCEDURES F inal [...] Clinical correlation recommended. Job ID/Internal Job ID: [id number] us Ines Keller RETAIL AND PROMOTIONS COORDINATOR NEUROLOGY ORDERABLES Fin al Result * US Abdominal Aorta (08/17/2021 10:31 AM ADVANCED ANALYTICS ASSOCIATE) Anatomical Region Laterality Modality Abdomen N/A Ultrasound 08/17/2021 10:3 9 AM ADVANCED ANALYTICS ASSOCIATE Impressions 08/17/2021 10:40 AM ADVANCED ANALYTICS ASSOCIATE Stable fusiform infrarenal aortic aneurysm. Dictated by: Damion Montez M.D. The radiology attending physician has personally reviewed this study, and had reviewed and/or edited this written report and agrees with it. Electronically signed by: Ryne Hernandez M.D. Narrative 08/17/2021 10:40 AM ADVANCED ANALYTICS ASSOCIATE EXAMINATION: AORTA SONOGRAM HISTORY: Infrarenal aortic aneurysm [...] Hernandez M.D. Juan Francisco Cerda III, MD [facility] PROCEDURES F inal Result from Last 3 Months or Most Recently Relevant to Health Maintenance Insurance MEDICARE [facility] MEDICARE SUPPLEMENT INSURANCE [place] [id number] * Guarantor: Jose Wright Account Type Relation to Patient Date of Phone Billing Address Personal/Family Self 1950 [phone] (Work) [address], [place] [id number] MEDICARE CIG[employer] MEDICARE [facility] CHOICE PLUS MEDICARE CIG[employer] MEDICARE SUPPLEMENT INSURANCE Advance Directives For more information, please contact: [phone] * Full Code (Latest Code Status on File) Date Activated Date Inactivated Comments 01/06/2023 9:12 PM 01/07/2023 5:33 PM * Full Code Date Activated Date Inactivated Comments 05/24/2021 5:54 AM 05/27/2021 6:56 PM Care Teams Drapery Seamstress Relationship Specialty Start Date End Date Ward Voss DO [address] [place] [address] [address] [place] [address] PCP - General Family Medicine 02/14/23 Juan Francisco Cerda III, MD [address] [facility] [address], [place] [address] Consulting Physician Cardiology 11/24/19 Gm Nguyễn MD [address] [facility] [address] [id number] Consulting Physician Urology 05/26/21 Moe Perez MD [address] [place] [address] [place] [address] Family Medicine 05/27/21 Stefano Sánchez MD [address] [place] [address] [place] [address] Consulting Physician Ophthalmology 01/11/22
--- OUTSIDE RECORDS SUMMARY | 2025-02-26 15:29 | XMS_ITS | Data Portability ---
Author Organization [facility] [employer], [facility] Address [address] [place] [address] Care Team Providers Care Print Developer Name Role Phone BANDAR MACKEY Primary Care Provider Unavaila ble Assessment No assessment recorded. Plan of Treatment Reminders Order Date Submit Date Provider Last Modified By Organization Details Last Modified Time Details Appointments None recorded. Lab TSH, serum or plasma - Fasting 8 hrs 2019 020 [email or web address] Not available 0 16:12:41 T4, free, serum - Fasting 8 hrs 2019 020 [email or web address] Not available 0 16:12:41 T3, free, serum or plasma - Fasting 8 hrs 2019 020 [email or web address] Not available 0 16:12:41 CMP, serum or plasma - Fasting 8 hrs 2019 020 [email or web address] Not available 0 16:12:41 PSA, serum or plasma - Fasting 8 hrs 2019 020 [email or web address] Not available 0 16:12:41 vitamin D, 25-hydroxy, total, serum - Fasting 8 hrs 2019 020 [email or web address] Not available 0 16:12:41 testosteron e, free, serum - Fasting 8 hrs 2019 020 [email or web address] Not available 0 16:12:41 testosteron e, total, serum - Fasting 8 hrs 2019 020 [email or web address] Not available 0 16:12:41 CBC w/ auto diff - Fasting 8 hrs 2019 [email or web address] Not available 0 16:12:41 Referral None recorded. Procedures None recorded. Surgeries None recorded. Imaging US, lower extremity, nonvascular 2019 [email or web address] Not available 0 14:23:22 XR, hip, unilateral 2019 [email or web address] Not available 0 16:12:41 Medication Orders cephalexin 500 mg capsule 2019 [email or web address] Not available 0 16:12:41 Patient TargetsNo targets recorded. Patient InstructionsNo instructions recorded. Reason for Referral None Reported. Problems No Known Problems Medical Equipment None Reported. Allergies No known drug allergies Medications Name Sig Start Date Stop Date Status Note LastModified by Organization Details LastModified Time atorvastatin 40 mg tablet active Not Available Not Available Not Available lisinopril 20 mg tablet active Not Available Not Available No t Available doxycycline hyclate 50 mg capsule active Not Available Not Available Not Available potassium chloride ER 10 mEq tablet,extende d release active Not Available Not Available No t Available tolterodine 2 mg tablet active Not Available Not Available No t Available tamsulosin 0.4 mg capsule active Not Available Not Available N ot Available cephalexin 500 mg capsule Take 4 capsules (total of 2g) po one hour prior to procedure . One time dose. 2019 active Not Available Not Available Not Avai lable hydralazine 50 mg tablet active Not Available Not Available No t Available methylpredniso lone 4 mg tablets in a dose pack active Not Available Not Available No t Available betamethasone dipropionate 0.05 % topical ointment active Not Available Not Available Not Available ondansetron 4 mg disintegrating tablet active Not Available Not Available Not Available sertraline 50 mg tablet active Not Available Not Available No t Available diazepam 5 mg tablet active Not Available Not Available Not Available tobramycin 0.3 %-dexamethason e 0.1 % eye drops,suspensi on active Not Available Not Available Not Available neomycin 3.5 mg/g-polymyxin B 10,000 unit/g-dexamet h 0.1 % eye oint active Not Available Not Available Not Available Pneumovax-23 25 mcg/0.5 mL injection syringe active Not Available Not Available Not Available moxifloxacin 0.5 % eye drops active Not Available Not Available Not Available metoprolol tartrate 25 mg tablet active Not Available Not Available Not Available Xifaxan 550 mg tablet active Not Available Not Available Not Available Plenvu 140 gram-9 gram-5.2 gram powder packs active Not Available Not Available Not Available Fluzone High-Dose 2019-20 (PF) 180 mcg/0.5 mL intramuscular syringe active Not Available Not Available Not Available Vitals None Recorded Social History None recorded. Functional Status None recorded. Mental Status None recorded. Family History Nothing Reported. Medical History No medical history recorded. Past Encounters Encounter ID Performer Location Encounter Start Date Encounter Closed Date Diagnosis/Indication Diagnosis SNOMED-CT Code Diagnosis ICD10 Code Diagnosis Note [id number] Edin Veronica, DO [facility] [address] [place] [address] 12/08/2019 12:18:11 12/12/2019 10:36:18 Pain of hip region 62008790 M25.552 Malaise and fatigue 2717 24706 R53.83 M89.9 M94.9 Z12.5 Z01.812 R53.81 E55.9 Antibiotic prophylaxis indicated 165811557 Z78.9 Osteoarthr itis of right knee joint [id number] 81200 M17.11 After review of radiograph ic and examinatio n findings, we discussed treatment options available. These included corticoste roid injection, viscous supplement ation, bracing of the knee, observatio n, surgical referral, physical therapy, pain management , and/or stem cell treatment. The patient is definitely interested in non-surgic al alternativ es. If they choose to undergo stem cell biologic treatment, it is understood that it is considered investigat ional and off label use of the product by FDA, that it is not a covered benefit by insurance, and that there is no guarantee of symptom improvemen t. With the malalignme nt and instabilit y, I am recommendi ng a custom measured compartmen t coupling machine operator brace. We measured the patient for this and will submit to insurance for coverage. If opting to undergo biologic treatment, an order was given for laboratory studies to be completed. We reviewed the stem cell treatment and depth. Informatio n packet was given to and reviewed with the patient. All questions were answered related to the procedure, post procedure expectatio ns, and cost associated with treatment. We also discussed that sometimes more than one biologic treatment is required to attain desired efficacy. They will call our office if they desire to schedule an appointmen t for treatment or review any of the other treatment options discussed. Patient will also RTC or call for any worsening, questions or concerns prn. I discussed with the patient as well regarding the hip and I feel that this is likely something that he could have physical therapy to help with at this time.He is in agreement with this and we will go ahead and get started in this process.We will see him back if he is not seeing good improvemen t with the therapy rather rapidly.If he has additional questions in the interim he is encouraged to contact me. I spent over 45 minutes with patient today with more than 50% of the time in counseling , discussion and coordinati on of care regarding the above. Health Concerns Section Related Observation LastModified by Organization Detai ls LastModified Time None Recorded Concern Status LastModified by Organization Details LastModified Time None Recorded Advance Directives Directive None Recorded Payers Encounter Date Sequence Insurance Name Policy Number Policy Garcia Covered Member ID Garcia Member ID Guarantor Name 12/08/2019 1 [facility] [id number] Jose Wright [id number] Jose Wright Notes Date Note Type Note Provider Name and Address Organization Details Recorded Time 12/08/2019 text/html Patient is a 69-year-old male who is seen today for evaluation of his right knee pain.Patient states the knee pain has been gradually worsening over time and is described as a dull achy pain that he has noticed over the past couple of years.When he is really started to notice is that he has a Miranda's cyst intermittently he is having an increase in his pain.He does feel more weak to him when he does get some of this pain.He has been seen 3 time for this including for a meniscus surgery was performed in 2016 that provided some symptomatic benefit.He also has had some increased swelling that has been associated with his Miranda's cyst swelling as well.1 of these instances last year he did have a Doppler ordered to make sure that he did not have any blood clots and he did not.He is a very active gentleman and has been trying to increase his activity but the knee has been limiting him.Additionally he has started to have some left lateral hip pain is well and this does occasionally have some groin pain associated with it.This is more of a mild pain in the groin and more of a sharp pain overlying the lateral aspect of his joint usually when he is trying to do things.He denies any real weakness with this but feels that when he is having some of the sharper pains on the lateral hip he does not feel like he wants to walk on it. Pain Score Pain scale from 0-10, 10 being the worst 5 Chief Complaint Why are you here today? Bakers Cyst When did the problem start 2 or more years Pain scale from 0-10, 10 being the worst 5 Over time is the problem getting better or worse? Worse Pain Description Aching Dull Sharp Time of day when pain is at its worst All Day Long What makes the pain better? Aleve Have you seen another doctor for this? Yes Name of the doctor Dr Kalin Mendez Previous Methods Tried to Manage Pain Anti-inflammatory Medications Tylenol Has patient ever had injections? No Imported from [email or web address] on 12/08/[place] [address] [address], [place], [address], [facility], [facility] 12/11/2019 14:24:19
--- OUTSIDE RECORDS SUMMARY | 2025-02-26 15:29 | XMS_ITS | Encounter Summary ---
Author Organization [facility] Healthcare Address [address] [place] [address] Care Team Providers Care Inhalation Therapy Teacher Name Role Phone Prashant BRAUN MD, Joseph Anthony Unavailable [phone] Gm Nguyễn MD Unavailable [phone] Moe Perez MD Unavailable [phone] Stefano Sánchez MD Unavailable Ward Voss DO Primary Care Provider [phone] Reason for Visit * Reason Onset Date Comments post left lumbar MBB #2 02/17/2025 Encounter Details Date Type Department Care Team (Late st Contact Info) Description 02/17/2025 Telephone [facility] [address] [address], [address] [place] [address] Ina Castanon MD [address] [place] [address] post left lumbar MBB #2 Social History Tobacco Use Types Packs/Day Years Used Date Smoking Tobacco: Former Cigarettes 1 55 1 961 - 2015 Smokeless Tobacco: Never Alcohol Use Standard Drinks/Week [...] on file Legal Sex Male 2:04 AM LEGAL RESEARCHER Gender Identity Male 11/27/2021 7:40 AM LEGAL RESEARCHER Sexual Orientation Straight 11/27/2021 7: 40 AM LEGAL RESEARCHER 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 * Telephone Encounter - Ines Hutton RN - 02/18/2025 9:20 AM CDT Date of procedure: 02/17/25 Procedure: Left lumbar medial branch block Level(s):L4/5 and L5/S1 Site: [x]Left [] Right [] Bilateral Pre-Procedure Pain Score: 3/10 Sedation: [x] No sedation [] Sedation Post Procedure Follow up Assessment: Did the injection help you? [x] Yes [] No Do you feel you had 80% or more pain relief? [x] Yes [] No Current Pain Rating? 0/10 Numbness/Heaviness: [x] No [] Yes Dizziness/Lightheadedness: [x] No [] Yes Tenderness/Redness/Swelling: [x] No [] Yes Pain Diary: 2 Hour Pain Diary every 15 mins 4 Hour Pain Diary every 30 mins 8 Hour pain Diary every 1 hour 3 3 3 2 2 2 2 1 Are you actively participating in physical therapy, home exercise, or gnosticism program ( ex: aquatic therapy, chiropractor, acupuncture, massage): [x] Yes or [] No If no, are you unable to participate in the above due to severe pain:[] Yes or [] NO Were the following activities more, less, or the same: Personal Care (washing, dressing): [x] More [] Less [] Same Lifting: [] More [] Less [x] Same Walking: [x] More [] Less [] Same Standing: [x] More [] Less [] Same Sitting: [x] More [] Less [] Same Traveling: [x] More [] Less [] Same Homemaking Activity: [x] More [] Less [] Same Social Life: [x] More [] Less [] Same Sleeping: [x] More [] Less [] Same Other Comments/Concerns: Pt will be on vacation from the 28 February - 15 March - we can contact them via [employer] during that timeperiod. * Telephone Encounter - Heydi Dobson RN - 02/17/2025 2:59 PM CDT 5.20.25 left lumbar MBB #2 Please call patient to review pain log documented in this encounter Plan of Treatment [...] the likelihood of falling Lifestyle No Nathaly Shoemaker RN Note: Below are four things you [...] on stairs Contact your local community or [employer] for information on exercise, fall prevention programs, or options for improving home safety. documented as of this encounter Visit Diagnoses Not on filedocumented in this encounter Care Teams Inhalation Therapy Teacher Relationship Specialty Start Date End Date Ward Voss DO [address] [place] [address] PCP - General Family Medicine 02/14/23 Juan Francisco Cerda III, MD [address] [facility] [address] [place] [address] Consulting Physician Cardiology 11/24/19 Gm Nguyễn MD [address] [facility] [address] [place] [address] Consulting Physician Urology 05/26/21 Moe Perez MD [address] [place] [address] [place] [address] Family Medicine 05/27/21 Stefano Sánchez MD [address] [place] [address] [place] [address] Consulting Physician Ophthalmology 01/11/22 documented as of this encounter
--- OUTSIDE RECORDS SUMMARY | 2025-02-26 15:29 | XMS_ITS | Encounter Summary ---
Author Organization [facility] Address 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 No / Unsure 12/26/2022 12:28 PM CDT documented as of this encounter Miscellaneous Notes * Telephone Encounter - Charlotte Salas ATC - 01/11/2023 3:19 PM CDT Called and scheduled patient for 01/16/23. Charlotte * Telephone Encounter - Aliyah Pemberton - 01/11/2023 12:52 PM CDT Patient call to schedule her another post op appointment please call back at [phone] documented in this encounter Plan of Treatment Not on file documented as of this encounter Visit Diagnoses Not on filedocumented in this encounter Care Teams Health Care Analyst Relationship Specialty Start Date End Date Ward Voss DO [facility] [address] PCP - General Family Practice 02/22/23 documented as of this encounter
--- OUTSIDE RECORDS SUMMARY | 2025-02-26 15:29 | XMS_ITS | Encounter Summary ---
Author Organization [facility] Address [address] [place] [address] Care Team Providers Care Clinical Pharmacy Coordinator Name Role Phone SidneyWard butler Ianjosé luis Primary Care Provider [phone] Encounter Details Date Type Department Care Team (Late st Contact Info) Description 01/11/2023 Telephone [facility] - [place] [address] [facility] [address] [place] [address] [place] [address] 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
--- OUTSIDE RECORDS SUMMARY | 2025-02-26 15:29 | XMS_ITS | Data Portability ---
Author Organization [place] - [facility],, Main Office Address [address] [place] [id number] Assessment Encounter Date Assessment Date Assessment LastModified by Organization Details LastModified Time 07/26/2022 07/26/2022 Total time spent on the date of service preparing for, seeing the patient, and completing the documentation was 35 minutes. [email or web address] Not available 07/26/2022 16:52:06 05/14/2023 05/14/2023 This note and documentation is not a direct quotation of the discussion between the patient and medical provider and as such will contain standard phrases and summarizations of care. This note was written as patient medical documentation and as communication tool between healthcare providers and may contain technical language, terminology, and abbreviations that are difficult to interpret without advanced medical training. If you have questions or concerns regarding what is written in this note, please contact our office. [email or web address] Not available 05/14/2023 15:03:43 09/05/2023 09/05/2023 This note and documentation is not a direct quotation of the discussion between the patient and medical provider and as such will contain standard phrases and summarizations of care. This note was written as patient medical documentation and as communication tool between healthcare providers and may contain technical language, terminology, and abbreviations that are difficult to interpret without advanced medical training. If you have questions or concerns regarding what is written in this note, please contact our office. [email or web address] Not available 09/05/2023 16:32:46 Plan of Treatment Reminders Order Date Submit Date Provider Last Modified By Organization Details Last Modified Time Details Appointments None recorded. Lab None recorded. Referral None recorded. Procedures None recorded. Surgeries fasciecto my, plantar fascia (SURG) 023 [id number] [email or web address] Not available 4 09:02:45 Imaging None recorded. Medication Orders None recorded. Patient TargetsNo targets recorded. Patient Instructions Encounter Date Encounter Id Patient Instructions Last Modified By Organization Details Last Modified Time 09/05/2023 [id number] body mass index: care instructions [email or web address] Not available 09/05/2023 16:34:40 Reason for Referral None Reported. Problems Name Problem SNOMED Code Status Onset Date Resolution Date Notes Provider Name and Address Organization Details Recorded Time Pain in left foot [id number] 07 Active 2022 Chloe Rodriguez DPM [address] [facility],[address], [place], [address], [facility], 3 15:03:46 Fibromatosi s of plantar fascia of left foot 1005346005410 9101 Active 2022 Chloe Rodriguez DPM [address] [facility],[address], [place], [address], [facility], 3 15:03:50 Mass of subcutaneou s tissue of left foot 7871442614004 9100 Active 2022 Chloe Rodriguez DPM [address] [facility],[address], [place], [address], [facility], 3 15:04:42 Ingrowing toenail 057893499 Active 2021 Chloe Rodriguez DPM [address] [facility],[address], [place], [address], [facility], 2 17:27:52 Pain of toes of bilateral feet 5453745815266 9102 Active 2021 Chloe Rodriguez DPM [address] [facility],[address], [place], [address], [facility], 2 17:27:55 Dystrophia unguium 74260153 Active 2021 Chloe Rodriguez, THUAN [address] [facility],[address], [place], [address], [facility], 2 17:28:31 Problem Notes None recorded. Procedures Surgical History Date Name Laterality Status Provider Name and Address Organization Details Recorded Time 3 Plantar Fascia Steroid Injection completed Chloe Rodriguez DPM [address] [facility],[address], [place], [address], [facility], 05/14/2023 14:57:33 3 Foot Strapping completed Chloe Rodriguez DPM [address] [facility],[address], [place], [address], [facility], 05/14/2023 14:56:21 Back Surgery completed [facility], 02/22/2022 16:55:[address] [facility], 02/22/2022 16:55:23 bilateral extraction of cataracts completed [facility], 02/22/2022 16:55:31 open heart surgery completed [facility], 02/22/2022 16:55:47 Imaging Results None recorded. Procedure Notes None recorded. Medical Equipment None Reported. Allergies No known drug allergies Medications Name Sig Start Date Stop Date Status Note LastModified by Organization Details LastModified Time tolterodine ER 2 mg capsule,exte nded release 24 hr TAKE 1 CAPSULE BY MOUTH ONCE DAILY active Not Available Not Available No t Available amoxicillin 500 mg capsule TAKE FOUR CAPSULES BY MOUTH ONE HOUR BEFORE APPOINTMENT active Not Available Not Available Not Available atorvastatin 40 mg tablet TAKE 1 TABLET BY MOUTH ONCE DAILY AT BEDTIME active Not Available Not Available No t Available methocarbamo l 500 mg tablet active Not Available Not Available Not Available azelastine 0.05 % eye drops INSTILL 1 DROP INTO EACH EYE TWICE DAILY active Not Available Not Available Not Available nystatin 100,000 unit/mL oral suspension SWISH AND SPIT 4 ML BY MOUTH 4 TIMES DAILY FOR 14 DAYS active Not Available Not Available Not Available prednisone 10 mg tablet TAKE 4 TABLETS BY MOUTH ONCE DAILY IN THE MORNING FOR 3 DAYS, THEN 3 ONCE DAILY IN THE MORNING FOR 3 DAYS, THEN 2 ONCE DAILY IN THE MORNING FOR 3 DAYS, THEN 1 ONCE DAILY IN THE MORNING FOR 3 DAYS. active Not Available Not Available Not Available oxybutynin chloride ER 10 mg tablet,exten ded release 24 hr TAKE 1 TABLET BY MOUTH ONCE DAILY active Not Available Not Available No t Available azithromycin 250 mg tablet TAKE 2 TABLETS BY MOUTH ON DAY 1, AND THEN TAKE 1 TABLET BY MOUTH ONCE A DAY ON DAY 2 THROUGH DAY 5 active Not Available Not Available No t Available benzonatate 200 mg capsule TAKE 1 CAPSULE BY MOUTH THREE TIMES DAILY NEEDED FOR COUGH active Not Available Not Available No t Available hydrocodone 5 mg-acetamino phen 325 mg tablet TAKE 1 TABLET BY MOUTH EVERY 4 HOURS NEEDED FOR MODERATE PAIN . DO NOT EXCEED 6 PER 24 HOURS active Not Available Not Available No t Available meloxicam 15 mg tablet TAKE 1 TABLET BY MOUTH ONCE DAILY active Not Available Not Available No t Available lisinopril 20 mg tablet TAKE 1 TABLET BY MOUTH ONCE DAILY. PATIENT NEEDS TO MAKE APPOINTMENT active Not Available Not Available Not Available prednisone 20 mg tablet TAKE 2 TABLETS BY MOUTH ONCE DAILY FOR 5 DAYS active Not Available Not Available No t Available fluorouracil 5 % topical cream APPLY CREAM TOPICALLY TWICE DAILY ON SCALP AND EARS FOR 2 WEEKS. KEEP LEFTOVER CREAM FOR FUTURE USE. active Not Available Not Available Not Available hydralazine 25 mg tablet TAKE 1 TABLET BY MOUTH TWICE DAILY active Not Available Not Available No t Available potassium chloride ER 10 mEq tablet,exten ded release TAKE 1 TABLET BY MOUTH TWICE DAILY active Not Available Not Available No t Available ciprofloxaci n 500 mg tablet TAKE 1 TABLET BY MOUTH EVERY 12 HOURS active Not Available Not Available No t Available tramadol 50 mg tablet TAKE 1 TABLET BY MOUTH EVERY 6 HOURS NEEDED FOR PAIN active Not Available Not Available No t Available vancomycin 1,000 mg intravenous injection active Not Available Not Available No t Available meloxicam 7.5 mg tablet TAKE 1 TABLET BY MOUTH TWICE DAILY WITH MEALS active Not Available Not Available No t Available tolterodine 2 mg tablet TAKE 1 TABLET BY MOUTH TWICE DAILY active Not Available Not Available No t Available prednisolone acetate 1 % eye drops,suspen mariela INSTILL 1 DROP INTO EACH EYE 4 TIMES DAILY FOR 5 DAYS, THEN TWICE DAILY FOR 5 DAYS. active Not Available Not Available No t Available gentamicin 0.3 % eye drops INSTILL 1 DROP INTO EACH EYE 4 TIMES DAILY FOR 5 DAYS, THEN TWICE DAILY FOR 5 DAYS. active Not Available Not Available No t Available tamsulosin 0.4 mg capsule TAKE 2 CAPSULES BY MOUTH ONCE DAILY active Not Available Not Available No t Available cephalexin 500 mg capsule TAKE 1 CAPSULE BY MOUTH TWICE DAILY FOR 5 DAYS active Not Available Not Available No t Available neomycin-kashmir ymyxin-dexam eth 3.5 mg/mL-10,000 unit/mL-0.1% eye drops INSTILL 1 DROP INTO EACH EYE 4 TIMES DAILY FOR 7 DAYS active Not Available Not Available N ot Available tobramycin 0.3 % eye drops INSTILL 1 INTO EACH EYE 4 TIMES DAILY FOR 7 DAYS active Not Available Not Available No t Available triamcinolon e acetonide 0.1 % topical ointment APPLY OINTMENT TOPICALLY TWICE DAILY NEEDED (FOR SCALY IRRITATED SKIN ON TRUNK AND EXTREMITIES ) active Not Available Not Available No t Available lisinopril 10 mg tablet TAKE 1 TABLET BY MOUTH ONCE DAILY active Not Available Not Available No t Available polymyxin B sulfate 10,000 unit-trimeth oprim 1 mg/mL eye drops INSTILL 1 DROP INTO AFFECTED EYE 4 TIMES DAILY FOR 7 DAYS active Not Available Not Available No t Available FML Forte 0.25 % eye drops,suspen mariela active Not Available Not Available Not Available hydralazine 50 mg tablet TAKE 1 TABLET BY MOUTH TWICE DAILY active Not Available Not Available No t Available mometasone 0.1 % topical ointment active Not Available Not Available Not Available gabapentin 100 mg capsule active Not Available Not Available Not Available methylpredni solone 4 mg tablets in a dose pack TAKE BY MOUTH DIRECTED ON INSIDE OF PACKAGE active Not Available Not Available No t Available albuterol sulfate HFA 90 mcg/actuatio n aerosol inhaler INHALE 2 PUFFS BY MOUTH EVERY 4 HOURS NEEDED FOR SHORTNESS OF BREATH OR WHEEZING active Not Available Not Available Not Available ondansetron 4 mg disintegrati ng tablet DISSOLVE 1 TAB BY MOUTH 10 MINUTES PRIOR TO EACH PREP DOSE NEEDED FOR NAUSEA active Not Available Not Available No t Available fluticasone propionate 50 mcg/actuatio n nasal spray,suspen mariela USE 2 SPRAY(S) IN EACH NOSTRIL TWICE DAILY active Not Available Not Available Not Available naproxen 500 mg tablet TAKE 1 TABLET BY MOUTH TWICE DAILY WITH MEALS FOR 7 DAYS active Not Available Not Available No t Available diazepam 5 mg tablet TAKE 1 TABLET BY MOUTH NIGHTLY NEEDED FOR ANXIETY active Not Available Not Available No t Available amoxicillin 875 mg-potassium clavulanate 125 mg tablet TAKE 1 TABLET BY MOUTH TWICE DAILY active Not Available Not Available No t Available tobramycin 0.3 %-dexamethas one 0.1 % eye drops,suspen mariela INSTILL 1 DROP INTO EACH EYE FOUR TIMES DAILY FOR 1 DAY, THEN 1 DROP THREE TIMES DAILY FOR 5 DAYS, THEN 1 DROP TWICE DAILY FOR 5 DAYS active Not Available Not Available N ot Available oxycodone 5 mg tablet TAKE 1 TABLET BY MOUTH EVERY 4 HOURS NEEDED FOR PAIN . DO NOT EXCEED 6 PER 24 HOURS active Not Available Not Available No t Available moxifloxacin 0.5 % eye drops INSTILL 1 DROP INTO EACH EYE 4 TIMES DAILY FOR ONE WEEK AND THEN STOP active Not Available Not Available No t Available epinastine 0.05 % eye drops INSTILL 1 DROP INTO EACH EYE EVERY 6 HOURS NEEDED active Not Available Not Available No t Available metoprolol tartrate 25 mg tablet TAKE 1 TABLET BY MOUTH TWICE DAILY active Not Available Not Available No t Available Eliquis 5 mg tablet TAKE 1 TABLET BY MOUTH TWICE DAILY active Not Available Not Available No t Available Plenvu 140 gram-9 gram-5.2 gram powder packs USE DIRECTED active Not Available Not Available No t Available molnupiravir 200 mg capsule (EUA) TAKE 4 CAPSULES BY MOUTH EVERY 12 HOURS FOR 5 DAYS active Not Available Not Available N ot Available lecanemab-ir mb 100 mg/mL intravenous solution Inject by intravenous route. active Not Available Not Available No t Available Vitals Date Recorded Heart rate Oxygen saturation Oxygen saturation in Arterial blood by Pulse oximetry Body temperature Body height Body mass index (BMI) Body weight Systolic blood pressure Diastolic blood pressure Provider Name and Address Organization Details Last Updated DateTime 2 69 /min 99 % 99 % 98 [degF] 182.88 cm 31.2 kg/m2 952811. 25 g 152 mm[Hg] 87 mm[Hg] [facility], 2 16:54:03 Date Recorded Body height Body mass index (BMI) Body weight Heart rate Oxygen saturation Oxygen saturation in Arterial blood by Pulse oximetry Body temperature Systolic blood pressure Diastolic blood pressure Provider Name and Address Organization Details Last Updated DateTime 3 182.88 cm 31.2 kg/m2 991276. 25 g 88 /min 98 % 98 % 97.8 [degF] 148 mm[Hg] 82 mm[Hg] Rahel Malloy [facility], 3 14:46:46 Date Recorded Body height Body mass index (BMI) Body weight Heart rate Oxygen saturation Oxygen saturation in Arterial blood by Pulse oximetry Body temperature Systolic blood pressure Diastolic blood pressure Provider Name and Address Organization Details Last Updated DateTime 2 182.88 cm 31.2 kg/m2 515152. 25 g 77 /min 99 % 99 % 98 [degF] 122 mm[Hg] 75 mm[Hg] [facility], 2 16:35:28 Date Recorded Body height Body mass index (BMI) Body weight Heart rate Oxygen saturation Oxygen saturation in Arterial blood by Pulse oximetry Body temperature Systolic blood pressure Diastolic blood pressure Provider Name and Address Organization Details Last Updated DateTime 3 182.88 cm 31.2 kg/m2 087137. 25 g 88 /min 98 % 98 % 97.9 [degF] 132 mm[Hg] 74 mm[Hg] [facility], 3 16:12:25 Social History Question Answer Notes LastModified by [employer] Details LastModified Time Tobacco Smoking Status Former Smoker Rahel Malloy [facility], 02/22/2022 16:56:11 What Was The Date Of Your Most Recent Tobacco Screening? 02/22/2022 Information not available 02/22/2022 At What Age Did You Start Smoking Tobacco? 12 Information not available 02/22/2022 Sex: Unknown Functional Status Question Answer Note LastModified by [employer] Details LastModified Time Do you use any illicit or recreational drugs? No Information not available 02/22/2022 Do you or have you ever used any other forms of tobacco or nicotine? No Information not available 02/22/2022 What is your level of alcohol consumption? None Information not available 02/22/2022 Mental Status None recorded. Family History Relationship Description Onset Age of this Age Resolved Age Notes LastModified by Organization Details LastModified Time Unspecified Relation Family history of malignant neoplasm [email or web address] Not available 2022 14:24:00 Unspecified Relation Hypercholest erolemia Not available 2021 16:56:24 Unspecified Relation Hypertensive disorder Not available 2021 16:56:30 Unspecified Relation Heart disease Not available 2021 16:56:36 Medical History Condition Response Coronary Artery Disease Y Gout N Emphysema N Lung Disease N Depression N COPD N Pacemaker N Edema N Deep Vein Thrombosis N Varicose Veins N Restless Leg Syndrome N Arthritis N Blood Clot N Cancer N Stroke N Leg or Foot Ulcers N Circulation Problems N Raynaud's Disease N High Cholesterol N Liver Disease N Rheumatoid Arthritis N Foot Deformity N Fibromyalgia N Kidney Disease N Anxiety N Artificial Joints N Thyroid Problems N Psoriatic Arthritis N Anemia N Back Pain Y Mental Illness N Diabetes N Bleeding Disorder N Seizures/Epilepsy N AIDS/HIV N Asthma N Allergies N Peripheral Vascular Disease N Artificial Heart Valve N Hepatitis N Neuropathy N Heart Disease Y Pulmonary Embolism N Hypertension Y Osteoporosis N Past Encounters Encounter ID Performer Location Encounter Start Date Encounter Closed Date Diagnosis/Indication Diagnosis SNOMED-CT Code Diagnosis ICD10 Code Diagnosis Note [id number] Chloe Rodriguze DPM Main Office [address] [place] [address] 02/22/2022 16:20:54 02/22/2022 17:00:11 Ingrowing toenail 907113966 L60.0 Pain of to es of bilateral feet 8122553490 5295517 M79.674 M79.675 The ingrown toenail its etiology, options for care, treatment plan, and prognosis were discussed with the patient. In detail, I explained conservati ve and surgical options of care. ,Home care directions were reviewed with the patient and a handout for post procedure care was dispensed. The patient voiced understand ing of the condition, home care, and expected healing, and was happy with this treatment plan and is to return to the office in 6 weeks or sooner as needed. Dystrophia unguium 14430 009 L60.3 [id number] Chloe Rodriguez DPM Main Office [address] [facility] [address], [place] [address] 07/26/2022 16:03:46 07/26/2022 16:28:20 Ingrowing toenail 613945705 L60.0 Pain of to es of bilateral feet 4454801094 5086882 M79.674 M79.675 The ingrown toenail its etiology, options for care, treatment plan, and prognosis were discussed with the patient. In detail, I explained conservati ve and surgical options of care. Nail spicule removed as a courtesy today. Home care directions were reviewed with the patient and a handout for post procedure care was dispensed. The patient voiced understand ing of the condition, home care, and expected healing, and was happy with this treatment plan and is to return to the office in 6 weeks or sooner as needed. Dystrophia anauium 99731 009 L60.3 [id number] Chloe Rodriguez DPM Main Office [address] [facility] [address] [place] [address] 05/14/2023 14:20:25 05/14/2023 14:54:49 Pain in left foot 8495204495 51635 M79.672 The conditions , etiologies , options for care, treatment plan, and prognosis were discussed with the patient. Both conservati ve and surgical options for care were reviewed. Conservati vely I recommende d that they wear more supportive shoes with a stiff-sole , a toe box wide enough for their foot, more padding, and overall better fitting shoes. Discussed the benefits of over the counter and/or prescripti on orthotics and explained that orthotics increase shock absorption and that the use of orthotics may possibly delay, or even potentiall y deter, requiring surgery for their condition. Discussed the benefits of rest, stretching , home physical therapy, ice, changes in shoe gear, more supportive shoegear, injections , NSAIDs, orthotics, and foot strapping. A handout demonstrat ing the icing and home physical therapy stretching techniques was given to the patient at this visit. Answered all of patient's questions. Discussed surgical interventi on in detail. I discussed the risks of procedure which include, but are not limited to: infection, recurrence , no improvemen t, worsening of condition, loss of limb, chronic swelling, chronic pain, hardware failure, need for future surgery, or numbness. Recovery time, post op protocols including weightbear ing status, and pain levels were discussed and the patient understand s the recovery time for this procedure and was given an opportunit y to ask questions. They understand that there are no guarantees on the outcome of any medical procedure and acknowledg es that no guarantee has been made with regard to these procedures . All questions were answered to the best of my ability; the patient would like to continue conservati ve therapy at this time. The patient voiced understand ing of the condition, home care, and expected healing, and was happy with this treatment plan. They are to return to the office in 6 - 8 weeks if symptoms do not improve, otherwise on an as needed basis. Fibromatos is of plantar fascia of left foot 0144091597 9059069 M72.2 I discussed treatment of their pain with an injection today. I explained that a steroid and local anesthetic injection usually decreases pain and inflammati on. I explained the possible complicati ons including but not limited to infection, discolorat ion of skin, tissue atrophy, and a temporary increase in discomfort . He chose to have an injection. Mass of rowell bcutaneous tissue of left foot 5030276231 1233150 R22.42 [id number] Chloe Rodriguez DPM Main Office [address] [facility] [place] [address] 09/05/2023 15:42:33 09/05/2023 17:13:38 Fibromatosis of plantar fascia of left foot 1123321753 1932904 M72.2 I discussed surgery in detail with the patient today. I discussed the risks of procedure which include, but are not limited to: infection, recurrence of condition, no improvemen t, worsening of condition, loss of limb, chronic swelling, chronic pain, need for future surgery, and/or numbness. Recovery time, post op protocols including weightbear ing status, and pain levels were discussed with the patient. They understand the recovery time for these procedures and were given an opportunit y to ask questions and they understand that there are no guarantees on the outcome of any medical procedure and they acknowledg e that no guarantee has been made with regard to these procedures . All questions were answered to the best of my ability; the patient would like to have a surgical correction performed and [facility] A surgical packet was reviewed with patient and scanned into the chart, the original was given to the patient. Pain in left foot 638700 4272 78589 M79.672 Patient's condition, etiologies , options for care, treatment plan, and prognosis were discussed with in detail. Both conservati ve and surgical options for care were reviewed. Conservati vely I reviewed possible therapeuti c options including home physical therapy, oral and injectable medication s, therapist managed therapy, and changes in shoe gear. Discussed proper shoe gear and choices in detail and a handout demonstrat ing the icing and home physical therapy stretching techniques was given to the patient at this visit. Answered all of patient's questions. Discussed the benefits of prescripti on orthotics with the patient and explained that functional orthotics increase shock absorption and may prolong, or even potentiall y deter, the potential of requiring surgery for their condition. I recommende d more supportive shoes, shoes with more padding, shoes with a deeper toe box, and better fitting shoes. Handout given for over the counter insoles and shoe brand informatio n. The patient voiced understand ing of the condition, home care, expected healing, and was happy with this treatment plan and is to return to the office after surgery or sooner as needed. Body mass index 30+ - obesity 252136826 Z68.31 This informatio n, diagnosis, and treatment plan/order s were recorded and added to the patient record/latonia rt solely for insurance quality measures reasons. Quality measures are tools that measure or quantify healthcare processes, outcomes, patient perception s, and organizati onal structure and/or systems that are associated with the ability to provide high-quali ty health care and/or that relate to one or more quality goals for health care. Health Concerns Section Related Observation LastModified by Organization Detai ls LastModified Time None Recorded Concern Status LastModified by Organization Details LastModified Time None Recorded Advance Directives Directive None Recorded Payers Encounter Date Sequence Insurance Name Policy Number Policy Garcia Covered Member ID Garcia Member ID Guarantor Name 07/26/2022 1 [facility] [id number] Jose Wright [id number] Jose Wright 05/14/2023 2 [employer] (MEDICARE SUPPLEMENT) Jose Wright [id number] Jose Wright 05/14/2023 1 [place] Jose Wright [id number] Jose Wright 09/05/2023 2 [employer] SUPPLEMENTAL - [employer] (MEDICARE SUPPLEMENT) Jose Wright [id number] Jose Wright 09/05/2023 1 [place] Jose Wright [id number] Jose Wright Notes Date Note Type Note Provider Name and Address Organization Details Recorded Time 02/22/2022 text/html Jose presents to the office today for an toenail spicules to the bilateral 2nd toe and 3rd toe right. They have not responded to self treatment including soaks, trimming at home, and local care. The toenail has been painful, red, and ingrown for several days weeks months years. The pain is throbbing, aching and stabbing in nature and is worsened by shoe wear and direct pressure. They have had a similar condition previously treated. Outside reports reviewed: Office notes and historical medical records Chloe Rodriguez DPM [address] [facility] [address] [place] [address], [phone], [facility], 02/22/2022 17:29:01 07/26/2022 text/html Jose presents to the office today for an toenail spicules to the left 2nd toe and 3rd toe right. They have not responded to self treatment including soaks, trimming at home, and local care. The toenail has been painful, red, and ingrown for several months. The pain is throbbing, aching and stabbing in nature and is worsened by shoe wear and direct pressure. They have had a similar condition previously treated. Outside reports reviewed: Office notes and historical medical records Chloe Rodriguez DPM 6[address] [facility] [address] [place] [address], [phone], [facility], 07/26/2022 16:52:21 05/14/2023 text/html Gustavo presents the office with a chief complaint of pain and a lump in the left arch that has been present several weeks and is aching, throbbing, stabbing in nature. Relates that the pain is worsening and that walking and standing increases the pain. Relates that they do have pain with first step out of bed and after being seated for periods of time. The pain is relieved with rest. They do not complain of tingling and burning to the feet. Previous treatments include changes in shoe gear, rest, ice, massage, home exercises, decreasing activities, zgcs-dbk-ykqufdo shoe inserts and bdxo-onp-aqzbozv pain medications. Outside reports reviewed: Office notes and historical medical records Chloe Rodriguez DPM [address] [facility] [address] [place] [address], [phone], [facility], 05/14/2023 17:14:33 09/05/2023 text/html Gustavo returns fo r follow up and worsening pain of a lump in the left arch that has been present several months and is aching, throbbing, stabbing in nature. Relates that the pain is worsening and that walking and standing increases the pain. Relates that they do have pain with first step out of bed and after being seated for periods of time. The pain is relieved with rest. They do not complain of tingling and burning to the feet. Previous treatments include changes in shoe gear, rest, ice, massage, home exercises, decreasing activities, fhgn-okx-ucbfsyg shoe inserts and kwoa-mbj-nhkrfym pain medications. Outside reports reviewed: Office notes and historical medical records Chloe Rodriguez DPM [address] [facility],[address] [place] [address], [phone], [facility], 09/05/2023 16:35:09
== END 2025-02-26 15:26 | disposition home or self-care (01) ==
PROVIDERS: PCP Family Medicine; Visit Provider Family Medicine
DX: Z12.2 Encounter for screening for malignant neoplasm of respiratory organs (principal); Z87.891 Personal history of nicotine dependence
CPT/HCPCS: 71271

== ENCOUNTER 2025-03-14 12:19 | Emergency (ER) | payer MEDICARE, SELFPAY ==
[2025-03-14 12:36] VITALS: BP 142/72; PULSE 154; RESP 18; TEMP 37.8; O2SAT 100
--- NOTE | 2025-03-14 12:36 | ED.MALEGU ---
HPI - Male Genitourinary General Chief complaint: Urogenital-Male Stated complaint: PAINFUL URINATION/VOMITING/FEVER Time Seen by Provider: 03/14/25 12:36 Source: patient Mode of arrival: ambulatory Limitations: no limitations History of Present Illness HPI Narrative: 74-year-old male with history of Alzheimer's, hypertension presents today with complaint of dysuria, fever, vomiting, abdominal pain starting yesterday. states that patient gets ?sick quick ?with his urinary tract infections. Patient complaining of fatigue, nausea and chills. Patient is alert. All systems reviewed and negative except as noted above. Related Data Home Medications ?Medication ?Instructions ?Recorded ?Confirmed ?Last Taken ?Type metoprolol tartrate 25 mg tablet 25 mg PO BID 01/30/20 03/14/25 Unknown History Allergies Allergy/AdvReac Type Severity Reaction Status Date / Time No Known Allergies Allergy Unverified 03/14/25 12:35 Review of Systems Review of Systems: CONSTITUTIONAL: Reports fever, chills, or sweats. EYES: Denies visual changes, redness, or discharge. ENT: Denies rhinorrhea, congestion, sore throat, or otalgia. CARDIOVASCULAR: Denies chest pain, palpitations, or edema. RESPIRATORY: Denies cough or dyspnea. GASTROINTESTINAL: Denies abdominal pain. Reports nausea, vomiting. Denies diarrhea. GENITOURINARY: Reports dysuria, suprapubic pain. Denies hematuria. SKIN: Denies rash or itching. MUSCULOSKELETAL: Denies back pain, joint pain, or myalgia. NEUROLOGIC: Denies headache, numbness, or weakness. PSYCHIATRIC: Denies anxiety or depression. All other systems reviewed are negative, except as documented in HPI. [facility] Past Medical History Medical History Arthritis Miranda's cyst of knee Congestion of nasal sinus GERD (gastroesophageal reflux disease) HLD (hyperlipidemia) HTN (hypertension) Pseudogout involving multiple joints Rupture of gluteus minimus tendon Surgical History Surgical History History of PTCA Status post right hip replacement Family History Family History Mother Family history of mental disorder Father Hypertension Family history of cardiovascular disease Cerebrovascular accident Family history of Alzheimer's disease Sibling Family history of malignant neoplasm of brain Social History Social History Social History: Caffeine-coffee Smoking packs per day: 0.25 Smoking cigarettes per day: 5.0 Years smoked: 20 Smoking pack-years: 5.00 Smoking status: Former smoker Tobacco type: cigarettes Second hand tobacco smoke exposure: No Smoking end date: 01/20/16 Alcohol intake: never Drinks per week: 0 Substance use: never Substance use type: does not use Lack of Transportation: No Lack of Food: Never True Current Housing: Decline to Answer Concerned About Future Housing: Decline to Answer Difficulty Paying Gas/Electric Bills: Decline to Answer Difficulty Paying for Meds: Decline to Answer Currently Unemployed: Decline to Answer Education: Decline to Answer Difficulty w/ Childcare or Family Care: Decline to Answer Living arrangements: with family Occupation/Education: retired Spiritual care concerns: No Agree to blood products: Yes Comments At time of signature, agree with nursing past medical, surgical, social and family history. There is no relevant family history pertinent to the presenting complaint. Exam Narrative: GENERAL: This is a well-nourished, well-developed patient, ill-appearing but in no acute distress HEAD: normocephalic, atraumatic. EYES: PERRL. Sclera clear/white. Vision is grossly intact. EARS: External ears normal NOSE: External nose normal NECK: Neck supple, non-tender without lymphadenopathy, masses or thyromegaly. CARDIOVASCULAR: Tachycardic without murmurs, gallops, or rubs. RESPIRATORY: Clear to auscultation. Breath sounds equal bilaterally. No wheezes, rales, or rhonchi. GASTROINTESTINAL: Abdomen soft, non-tender, nondistended. Bowel sounds are active. No hepato-splenomegaly, or palpable masses. No guarding. SKIN: warm, Dry, intact with no suspicious lesions or rash, good texture and turgor. NEURO: awake, alert, and oriented to person, place and time. There were no obvious focal neurologic abnormalities. EXTREMITIES: No joint tenderness, effusion, or edema noted. Course Course Level of Care: Express Care Visit Vital Signs Vital signs: Vital Signs Temperature 37.8 C H 03/14/25 12:36 Pulse Rate 154 H 03/14/25 12:36 Respiratory Rate 18 03/14/25 12:36 Blood Pressure 142/72 H 03/14/25 12:36 Pulse Oximetry 100 03/14/25 12:36 Temperature 37.8 C H 03/14/25 12:36 Pulse Rate 154 H 03/14/25 12:36 Respiratory Rate 18 03/14/25 12:36 Blood Pressure 142/72 H 03/14/25 12:36 Pulse Oximetry 100 03/14/25 12:36 Transfer Transfered to: [facility] Transportation: Other (private vehicle with ) Transfer rationale: transferring to ER for rule out urinary sepsis. Fever, elevated HR, urinalysis leuk 2+, protein 2+, pt vomiting Accepting physician: Dr. Amin MDM - Male Genitourinary MDM Narrative Medical decision making narrative: Elevated heart rate, fever 101.8, vomiting, abdominal pain with urinalysis showing 2+ leukocytes. Transferring to ER for to rule out urinary sepsis. Patient and patient's agree with plan of care. Patient is stable to travel by private vehicle. Differential Diagnosis Differential diagnosis: Likely urinary tract infection, urethritis and other (Urosepsis) Lab Data Labs: Lab Results 03/14/25 Range/Units 12:51 POC Urine Color Yellow POC Urine Clarity Cloudy POC Urine pH 6.5 POC Ur Specif [place] 1.020 POC Urine Protein 2+ (Negative) POC Ur Glucose (UA) Negative (Negative) POC Urine Ketones Negative (Negative) POC Urine Blood Trace (Negative) POC Urine Nitrite Negative (Negative) POC Urine Bilirubin Negative (Negative) POC Urine Urobilinogen 0.2 POC U Leukocyte Esteras 2+ (Negative) Discharge Plan Discharge Clinical Impression: Urinary tract infection, Tachycardia Patient Disposition: Acute Care Hospital Condition: Stable Additional Instructions: go directly to [facility]. Patient Language: Georgian Prescriptions: No Action metoprolol tartrate 25 mg tablet 25 mg PO BID amoxicillin-pot clavulanate 875-125 mg tablet 1 tablet PO BID Qty: 20 0RF fexofenadine [Shalini Allergy] 60 mg tablet 60 mg PO Q12H Qty: 60 0RF fluticasone propionate [Flonase Allergy Relief] 50 mcg/actuation spray,suspension 2 spray intranasal BID Qty: 16 0RF Rx Instructions: administer into each nostril hydralazine 25 mg Tablet 25 mg PO BID Qty: 60 0RF lisinopril 10 mg Tablet 10 mg PO DAILY Qty: 30 0RF Follow-up/Referrals: Bipin,DO Ward [Primary Care Provider] - Time of Disposition: 12:54
[2025-03-14 12:50] VITALS: PULSE 123; TEMP 38.8; O2SAT 93
[2025-03-14 12:54] LABS: EDUAAPPEAR Cloudy; EDUABILI Negative (Negative); EDUABLOOD Trace (Negative); EDUACOLOR1 Yellow; EDUAGLUCOSE Negative (Negative); EDUAKETONE Negative (Negative); EDUALEUKO 2+ (Negative); EDUANITRATE Negative (Negative); EDUAPH 6.5; EDUAPROTEIN 2+ (Negative); EDUAUROBILI 0.2
== END 2025-03-14 13:00 | disposition short-term general hospital (02) ==
PROVIDERS: Emergency Provider Nurse Practitioner Family; PCP Family Medicine
DX: N39.0 Urinary tract infection, site not specified (principal); R00.0 Tachycardia, unspecified; Z87.891 Personal history of nicotine dependence; I10 Essential (primary) hypertension; E78.5 Hyperlipidemia, unspecified; K21.9 Gastro-esophageal reflux disease without esophagitis; M19.90 Unspecified osteoarthritis, unspecified site; Z96.641 Presence of right artificial hip joint; Z98.61 Coronary angioplasty status
CPT/HCPCS: 81003; 87086; 87186; 99213; G0463

== ENCOUNTER 2025-03-14 13:17 | Inpatient (IN) | payer MEDICARE, SELFPAY ==
--- NOTE | ~2025-03-14 | XR_ITS ---
CHEST RADIOGRAPH, PA AND LATERAL CLINICAL HISTORY: sepsis X EXCESSIVE SWEATING . COMPARISON: 09/18/2023 TECHNIQUE: PA and lateral views of the chest. FINDINGS The cardiomediastinal silhouette is unremarkable. The lungs are clear. IMPRESSION: No focal infiltrate or effusion. Reviewed, dictated and finalized at location A.
--- NOTE | ~2025-03-14 | CT_ITS ---
CLINICAL INDICATION: Weakness, nausea, vomiting, leukocytosis and dysuria COMPARISON: 06/26/2024. TECHNIQUE: Multiple contiguous axial images of the abdomen and pelvis were performed following the ad ministration of with 100 mL Omnipaque-350 intravenous contrast The dose-length product (DLP) was 1227.05 mGy-cm. Automated exposure control and iterative reconstruction technique were employed. FINDINGS/OBSERVATIONS: Visualized lower thorax: The bilateral lung bases are clear. The heart is of normal size, without pericardial effusion. Liver: The liver demonstrates homogeneous enhancement and is not enlarged. Gallbladder and biliary system: The gallbladder is only minimally distended, contains multiple small stones and is otherwise unremark able. Pancreas: The pancreas enhances homogeneously without ductal dilatation. Spleen: The spleen enhances homogeneously and is not enlarged. Kidneys: The bilateral kidneys are somewhat atrophic, but enhance symmetrically without hydronephrosis or pinky l calculi. Adrenal glands: Unremarkable. Gastrointestinal tract: Multiple loops of hyperemic small bowel within the upper abdomen, to the left of midline with mural t hickening, findings suggesting a focal enteritis. Colonic diverticulosis without surrounding inflammatory change. Appendix: The appendix is not definitively visualized. However, no pericecal inflammatory change is identified suggest the presence of acute appendicitis. Vasculature: Aneurysmal dilatation of the infrarenal abdominal aorta with trace mural thrombus measuring 4.1 x 3.6 x 3.8 cm, unchanged from 06/26/2024 Lymph nodes: No pathologically enlarged or morphologically suspicious lymph nodes within the retroperitoneum or at the root of the mesentery. Pelvic structures: The bladder is decompressed, limiting its evaluation. The prostate gland is not enlarged. Body wall and musculoskeletal: Age advanced degenerative disease within the lumbosacral spine with osteophyte formation, disc space narrowing, endplate changes and vacuum phenomena most prominent at the level of L2/L3 and L5/S1. No acute fracture. No lytic or blastic lesions. IMPRESSION: Cholelithiasis without cholecystitis. Findings within the left upper quadrant suggesting a focal small bowel enteritis. Limited evaluation of the bladder secondary to underdistention. Reviewed, dictated and finalized at location A. IMPRESSION: Cholelithiasis without cholecystitis. Findings within the left upper quadrant suggesting a focal small bowel enteriti s. Limited evaluation of the bladder secondary to underdistention.
--- NOTE | 2025-03-14 13:19 | ECG_ITS ---
Test Date: 2025-03-14 13:28:10 Measurements Intervals [place] Rate: 105 P: 46 [place]: 222 QRS: -23 QRSD: 101 T: 29 QT: 332 QTc: 439 Interpretive Statements SINUS TACHYCARDIA WITH FIRST DEGREE AV BLOCK INCOMPLETE RIGHT BUNDLE BRANCH BLOCK BORDERLINE R WAVE PROGRESSION, ANTERIOR LEADS BORDERLINE T WAVE ABNORMALITY- INFERIOR LEADS BASELINE WANDER- V3 BORDERLINE ECG No previous ECG available for comparison Electronically Signed On 03-14-2025 13:44:55 CDT by Emil Vasquez D.O.
--- OUTSIDE RECORDS SUMMARY | 2025-03-14 13:20 | XMS_ITS | Encounter Summary ---
Author Organization [facility] Address [address] [place] [address] Phone Care Team Providers Care Drill Punch Operator Name Role Phone Prashant BRAUN MD, Joseph Anthony Unavailable [phone] Gm Nguyễn MD Unavailable [phone] Moe Perez MD Unavailable [phone] Stefano Sánchez MD Unavailable [phone] Ward Voss DO Primary Care Provider [phone] Encounter Details Date Type Department Care Team (Late st Contact Info) Description 02/01/2025 Results Follow-Up [facility] Neurosurgery [address] [facility] Medical Office Building [address] [place] [address] Ines Keller, FLACO [address] [place] [address] EMG/NCV - Social History Tobacco Use Types [...] on file Legal Sex Male 2:04 AM THEATRICAL VARIETY AGENT Gender Identity Male 11/27/2021 7:40 AM THEATRICAL VARIETY AGENT Sexual Orientation Straight 11/27/2021 7: 40 AM THEATRICAL VARIETY AGENT 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 Not on file Not [...] on filedocumented in this encounter Care Teams Drill Punch Operator Relationship Specialty Start Date End Date Ward Voss DO [address] [place] [address] [place] [address] PCP - General Family Medicine 02/14/23 Juan Francisco Cerda III, MD [address] [facility] [address] [place], [place] [id number] Consulting Physician Cardiology 11/24/19 Gm Nguyễn MD [address] [facility] [address] [place], [place] [id number] Consulting Physician Urology 05/26/21 Moe Perez MD [address] [place] [address] [place] [address] Family Medicine 05/27/21 Stefano Sánchez MD [address] [place] [address] [place] [address] Consulting Physician Ophthalmology 01/11/22 documented as of this encounter
--- OUTSIDE RECORDS SUMMARY | 2025-03-14 13:20 | XMS_ITS | Data Portability ---
Author Organization [facility],, [address] [place] [address] Office Address [address] [place] [address] [place] [phone] Assessment Encounter Date Assessment Date Assessment LastModified by Organization Details LastModified Time 07/26/2022 07/26/2022 Total time spent on the date of service preparing for, seeing the patient, and completing the documentation was 35 minutes. [email or web address] Not available 07/26/2022 16:52:06 05/14/2023 05/14/2023 This [...] in this note, please contact our office. [email or web address] Not available 05/14/2023 15:03:43 09/05/2023 09/05/2023 This [...] in this note, please contact our office. [email or web address] Not available 09/05/2023 16:32:46 Plan of Treatment Reminders Order Date Submit Date Provider Last Modified By Organization Details Last Modified Time Details Appointments None recorded. Lab None recorded. Referral None recorded. Procedures None recorded. Surgeries fasciecto my, plantar fascia (SURG) 023 12/13/2 023 [email or web address] Not available 4 09:02:45 Imaging None recorded. Medication Orders None recorded. Patient TargetsNo targets recorded. Patient Instructions Encounter Date Encounter Id Patient Instructions Last Modified By Organization Details Last Modified Time 09/05/2023 [id number] body mass index: care instructions [email or web address] Not available 09/05/2023 16:34:40 Reason for Referral None Reported. 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 9068221059179 9101 Active 2022 Chloe Rodriguez DPM [address] [facility],[address], [place], [address], [facility], 3 15:03:50 Mass of subcutaneou s tissue of left foot 7885173575654 9100 Active 2022 Chloe Rodriguez DPM [address] [facility],[address], [place], [address], [facility], 3 15:04:42 Ingrowing toenail 076461366 Active 2021 Chloe Rodriguez DPM [address] [facility],[address], [place], [address], [facility], 2 17:27:52 Pain of toes of bilateral feet 3843644533256 9102 Active 2021 Chloe Rodriguez DPM [address] [facility],[address], [place], [address], [facility], 2 17:27:55 Dystrophia unguium 82699905 Active 2021 Chloe Rodriguez, THUAN [address] [facility],[address], [place], [address], [facility], 17:28:31 Problem Notes None recorded. Procedures Surgical History Date Name Laterality Status Provider Name and Address Organization Details Recorded Time 3 Plantar Fascia Steroid Injection completed Chloe Rodriguez DPM [address] [facility],[address], [place], [address], [facility], 05/14/2023 14:57:33 3 Foot Strapping completed Chloe Rodriguez DPM [address] [facility],[address], [place], [address], [facility], 05/14/2023 14:56:21 Back Surgery completed [facility], 02/22/2022 16:55:16 colonoscopy completed [facility], 02/22/2022 16:55:23 bilateral extraction of cataracts completed [facility], 02/22/2022 16:55:31 open heart surgery completed [facility], 02/22/2022 16:55:47 Imaging Results None recorded. Procedure [...] % 98 [degF] 182.88 cm 31.2 kg/m2 826587. 25 g 152 mm[Hg] 87 mm[Hg] [facility], 2 16:54:03 Date Recorded Body height Body mass index (BMI) Body weight Heart rate Oxygen saturation Oxygen saturation in Arterial blood by Pulse oximetry Body temperature Systolic blood pressure Diastolic blood pressure Provider Name and Address Organization Details Last Updated DateTime 3 182.88 cm 31.2 kg/m2 093390. 25 g 88 /min 98 % 98 % 97.8 [degF] 148 mm[Hg] 82 mm[Hg] Rahel Malloy [facility], 3 14:46:46 Date Recorded Body height Body mass index (BMI) Body weight Heart rate Oxygen saturation Oxygen saturation in Arterial blood by Pulse oximetry Body temperature Systolic blood pressure Diastolic blood pressure Provider Name and Address Organization Details Last Updated DateTime 2 182.88 cm 31.2 kg/m2 027749. 25 g 77 /min 99 % 99 % 98 [degF] 122 mm[Hg] 75 mm[Hg] [facility], 2 16:35:28 Date Recorded Body height Body mass index (BMI) Body weight Heart rate Oxygen saturation Oxygen saturation in Arterial blood by Pulse oximetry Body temperature Systolic blood pressure Diastolic blood pressure Provider Name and Address Organization Details Last Updated DateTime 3 182.88 cm 31.2 kg/m2 412032. 25 g 88 /min 98 % 98 % 97.9 [degF] 132 mm[Hg] 74 mm[Hg] [facility], 3 16:12:25 Social History Question Answer Notes LastModified by [employer] Details LastModified Time Tobacco Smoking Status Former Smoker Rahel Malloy [facility], 02/22/2022 16:56:11 What Was The Date Of Your Most Recent Tobacco Screening? 02/22/2022 Information not available 02/22/2022 At What Age Did You Start Smoking Tobacco? 12 Information not available 02/22/2022 Sex: Unknown Functional Status Question Answer Note LastModified by [employer] Details LastModified Time Do you use any [...] Unspecified Relation Family history of malignant neoplasm [email or web address] Not available 2022 14:24:00 Unspecified Relation Hypercholest [...] Diagnosis ICD10 Code Diagnosis Note [id number] Chloe Rodriguez DPM [address],[facility] [address] [place] [address] 02/22/2022 16:20:54 02/22/2022 17:00:11 Ingrowing toenail 758818544 L60.0 Pain of to es of bilateral feet 0792700717 8835547 M79.674 M79.675 The ingrown toenail its etiology, [...] weeks or sooner as needed. Dystrophia unguium 11455 009 L60.3 [id number] Chloe Rodriguez DPM [address] [facility] Office [address] [facility] [address] [place] [address] 07/26/2022 16:03:46 07/26/2022 16:28:20 Ingrowing toenail 281891888 L60.0 Pain of to es of bilateral feet 7976873965 4327195 M79.674 M79.675 The ingrown toenail its etiology, [...] weeks or sooner as needed. Dystrophia unguium 49146 009 L60.3 [id number] Chloe Rodriguez DPM [address] [facility] Office 1 [facility] [address] [place] [address] 05/14/2023 14:20:25 05/14/2023 14:54:49 Pain in left foot 4840557586 32889 M79.672 The conditions , etiologies , options [...] is of plantar fascia of left foot 0004138960 9133551 M72.2 I discussed treatment of their pain [...] of rowell bcutaneous tissue of left foot 4757498841 4060643 R22.42 [id number] Chloe Rodriguez DPM [address],[facility] [address] [place] [address] 09/05/2023 15:42:33 09/05/2023 17:13:38 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 A surgical packet was reviewed with patient and scanned into the chart, the original was given to the patient. Pain in left foot 089557 9785 05602 M79.672 Patient's condition, etiologies , options for [...] needed. Body mass index 30+ - obesity 213802479 Z68.31 This informatio n, diagnosis, and treatment [...] Recorded Advance Directives Directive None Recorded Payers Insurance Date Sequence Insurance Name Policy Number Policy Garcia Covered Member ID Garcia Member ID Guarantor Name 05/14/2023 1 R [id number] Jose Wright [id number] Jose Wright 07/04/2023 2 [employer] (MEDICARE SUPPLEMENT) Jose Wright [id number] Jose Wright 09/09/2023 2 [employer] SUPPLEMENTAL - [employer] INSURANCE (MEDICARE SUPPLEMENT) Jose Wright [id number] Jose Wright 09/02/2023 1 [place] Jose Wright [id number] Jose Wright Notes Date Note Type Note Provider Name and Address Organization Details Recorded Time 02/22/2022 text/html Jose presents to the office today for an toenail spicules to the bilateral 2nd toe and 3rd toe right. They have not responded to self treatment including soaks, trimming at home, and local care. The toenail has been painful, red, and ingrown for several years. The pain is throbbing, aching and stabbing in nature and is worsened by shoe wear and direct pressure. They have had a similar condition previously treated. Outside reports reviewed: Office notes and historical medical records Chloe Rodriguez DPM [address] [facility],[address] [place] [address], [phone], [facility], 02/22/2022 17:29:01 07/26/2022 text/html Jose presents to [...] historical medical records Chloe Rodriguez DPM [address] [facility],[address] [place] [address], [phone], [facility], 07/26/2022 16:52:21 05/14/2023 text/html Gustavo presents the [...] rest, ice, massage, home exercises, decreasing activities, pipi-coy-owyqgjd shoe inserts and wxyz-yoe-fmqnmot pain medications. Outside reports reviewed: Office notes and historical medical records Chloe Rodriguez DPM [address] [facility] [address] [place] [address], [phone], [facility], 05/14/2023 17:14:33 09/05/2023 text/html Gustavo returns fo [...] rest, ice, massage, home exercises, decreasing activities, bhem-gen-dwklhto shoe inserts and urtx-uqj-gdnufhu pain medications. Outside reports reviewed: Office notes and historical medical records Chloe Rodriguez DPM [address] [facility],[address] [place] [address], [phone], [facility], 09/05/2023 16:35:09
--- OUTSIDE RECORDS SUMMARY | 2025-03-14 13:20 | XMS_ITS | Referral Summary ---
Author Organization [facility] Center Address [address] [place] [address] Care Team Providers Care Environmental Engineering Technician Name Role Phone Prashant BRAUN MD, Juan Francisco Ochoa Unavailable [phone] Gm Nguyễn MD Unavailable [phone] Moe Perez MD Unavailable Stefano Sánchez MD Unavailable [phone] Ward Voss DO Primary Care Provider [phone] Encounters Date Type Department Care Team Description 02/20/2025 Telephone [facility] First Floor [address] [place] [address] Mena Garcia, A 02/20/2025 Orders Only [facility] at [address], [address] [place] [address] Ina Castanon MD Spondylosis of lumbar region without myelopathy or radiculopathy (Primary Dx) 02/17/2025 Telephone [facility] [address], [address] [place] [address] Ina Castanon MD post left lumbar MBB #2 02/17/2025 2:45 PM CDT - 02/17/2025 11:59 PM CDT Hospital Encounter [facility] [place] [address] [facility] 4, [address] [place] [address] Ina Castanon MD Spondylosis of lumbar region without myelopathy or radiculopathy Discharge Disposition: Discharge to home or self care 02/13/2025 Telephone [facility] [place] [address] [place] [address] Meredith Chatman 02/13/2025 Telephone [facility] [place] [address] [place] [address] Carolina Rodriguez RN 02/13/2025 Orders Only [facility] Neuro Muscle [address] [facility] 6th [place] [address] [place] [address] Hanh Zhou PA 02/12/2025 2:00 PM CDT Infusion [facility] [place] [address] [place] [address] Alzheimer disease (HCC) (Primary Dx) 02/11/2025 Telephone [facility] [address] [place] [address] First Floor [address] [place] [address] Ilia Nolen MSW 02/11/2025 2:30 PM CDT Office Visit [facility] [address] [place] [address] First Floor [address] [place] [address] Hanh Zhou PA Alzheimer's disease (HCC) [G30.9, F02.80] (Primary Dx) 02/09/2025 2:10 PM CDT Office Visit [facility] Orthopaedic Surgery [address] [facility] 2nd Floor [address] [place] [address] German Muñoz MD Left hand weakness; Carpal tunnel syndrome of left wrist 02/06/2025 Telephone [facility] [address], [address] [place] [address] Ina Castanon MD LMBB SCHEDULED 02/05/2025 Orders Only [facility] at [address], [address] [place] [address] Ina Castanon MD Spondylosis of lumbar region without myelopathy or radiculopathy (Primary Dx) 02/05/2025 Telephone [facility] at [address], [address] [place] [address] Ina Castanon MD #2 LMBB 02/05/2025 Orders Only [facility] Neurosurgery [address] [place] [address] Office Building [address] [place] [address] Ines Keller NP Left hand weakness (Primary Dx); Carpal tunnel syndrome of left wrist 02/03/2025 3:30 PM CDT Office Visit [facility] [place] [address] [place] [address] Awilda Rodriguez NP Rash (Primary Dx) 02/03/2025 Telephone [facility] [address] [facility] First Floor [address] [place] [address] Mena Garcia, RMA Test Results 02/01/2025 Results Follow-Up [facility] Neurosurgery [address] [place] [address] 4 [address] [place] [address] Ines Keller NP EMG/NCV - 01/29/2025 2:[address] [facility] [address] [facility] [address] [place] [address] Alzheimer disease (HCC) (Primary Dx) 01/28/2025 11:55 AM CDT - 01/28/2025 11:59 PM CDT Hospital Encounter [facility] [address] [place] [id number] Discharge Disposition: Discharge to home or self care 01/28/2025 11:55 AM CDT - 01/28/2025 11:59 PM CDT Hospital Encounter [facility]) [address] [place] [address] Alzheimer's disease (HCC) Discharge Disposition: Discharge to home or self care 01/20/2025 1:00 PM CDT - 01/20/2025 11:59 PM CDT Hospital Encounter [facility] Neurology Testing [address] [place] [address] Left hand weakness Discharge Disposition: Discharge to home or self care 01/15/2025 Telephone [facility] [address] [address], [address] [place] [address] Ina Castanon MD PT order 01/15/2025 1:00 PM CDT Infusion [address] [place] [address] Alzheimer disease (HCC) (Primary Dx) 01/01/2025 1:00 PM CDT Infusion [address] [place] [address] Alzheimer disease (HCC) (Primary Dx) 12/18/2024 1:30 PM CDT Infusion [address] [place] [address] Alzheimer disease (HCC) (Primary Dx) from Last 3 Months Allergies No known [...] Head CT reviewed, brain shrinkage noted. Off REDEYE GUNNER meds: Valium, oxycodone, gabapentin, oxybutynin, tolerodone Urology - consider Myrbetriq Brain imaging tomorrow. Recommend brain MRI. Confusion 01/06/2023 History of 2019 novel coronavirus disease (COVID -19) 02/10/2022 COVID-19 11/26/2021 Assessment & Plan (11/26/2021 8:49 AM YOUTH PROBATION OFFICER): NEG influenza A/B but +covid. Continue tylenol/ibuprofen. [...] (08/09/2020): Added automatically from request for surgery [id number] Trochanteric bursitis of left hip 06/08/2020 Ischemic chest pain 10/22/2019 Tearing, bilateral 02/21/2019 Adenopathy, cervical 10/17/2018 Aortic atherosclerosis ([facility]/HCC) 03/11/2018 Screening for cardiovascular , [...] 03/28/2016 Mixed hyperlipidemia 03/28/2016 Coronary arteriosclerosis in [place] artery 03/27 Overview (10/22/2019): 03/16 lexiscan nuclear: [...] small RPDA Coronary artery disease invo lving [place] coronary artery of [place] heart without angina pectoris 03/27/2016 Overview (11/12/2020): [...] on file Legal Sex Male 2:04 AM YOUTH PROBATION OFFICER Gender Identity Male 11/27/2021 7:40 AM YOUTH PROBATION OFFICER Sexual Orientation Straight 11/27/2021 7: 40 AM YOUTH PROBATION OFFICER 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 [...] on stairs Contact your local community or [facility] for information on exercise, fall prevention programs, or options for improving home safety. Medical Devices Implanted Type Area Correctional Case Manager Device Identifier Shelf Expiration Date Model / [...] Read Routine (OP Routine) 08/17/2021 10:31 AM YOUTH PROBATION OFFICER Abdominal aortic ectasia Atherosclerotic heart disease of [place] coronary artery with angina pectoris Malignant hypertension from Last 3 Months or Most Recently Relevant to Health Maintenance Results * Imaging Lumbar/Sacral Facet Medial Branch Block Left ([id number]) (02/17/2025 3:32 PM CDT) Narrative RAD_PACS_BJWCH - [...] AMYLOID-PET/CT IMAGING DATE OF STUDY: 01/28/2025 SCANNER: [facility] RADIOPHARMACEUTICAL: 11.42 mCi F-18 florbetapir i.v. HISTORY: [...] performed. The study was interpreted on the RAVI workstation. COMPARISON CT/MRI: Brain MRI 03/18/2023 FINDINGS: There is normal cortical-white matter contrast in the cerebellum. There is normal cortical-white matter contrast throughout the cerebrum. There are no foci of increased cortical activity. Incidental CT findings: Bilateral lens replacement. Procedure Note Betsy Medrano MD PhD - 01/28/2025 EXAMINATION: BRAIN AMYLOID-PET/CT IMAGING DATE OF STUDY: 01/28/2025 SCANNER: [facility] RADIOPHARMACEUTICAL: 11.42 mCi F-18 florbetapir i.v. HISTORY: [...] performed. The study was interpreted on the Total Eclipse workstation. COMPARISON CT/MRI: Brain MRI 03/18/2023 FINDINGS: [...] Clinical correlation recommended. Job ID/Internal Job ID: [id number] Ines Keller NP NEUROLOGY ORDERABLES Fin al Result * US Abdominal Aorta (08/17/2021 10:31 AM YOUTH PROBATION OFFICER) Anatomical Region Laterality Modality Abdomen N/A Ultrasound 08/17/2021 10:3 9 AM YOUTH PROBATION OFFICER Impressions 08/17/2021 10:40 AM YOUTH PROBATION OFFICER Stable fusiform infrarenal aortic aneurysm. Dictated by: Damion Montez M.D. The radiology attending physician has personally reviewed this study, and had reviewed and/or edited this written report and agrees with it. Electronically signed by: Ryne Hernandez M.D. Narrative 08/17/2021 10:40 AM YOUTH PROBATION OFFICER EXAMINATION: AORTA SONOGRAM HISTORY: Infrarenal aortic aneurysm [...] Hernandez M.D. Juan Francisco Cerda III, MD [facility] US PROCEDURES F inal Result from Last 3 Months or Most Recently Relevant to Health Maintenance Insurance MEDICARE [facility] MEDICARE SUPPLEMENT INSURANCE * Guarantor: Jose Wright Account Type Relation to Patient Date of Phone Billing Address Personal/Family Self 1950 [phone] (Work) [address] [place], [place] [id number] MEDICARE [facility] MEDICARE [facility] CHOICE PLUS MEDICARE [facility] MEDICARE SUPPLEMENT INSURANCE Advance Directives For more information, please contact: [phone] * Full Code (Latest Code Status on File) Date Activated Date Inactivated Comments 01/06/2023 9:12 PM 01/07/2023 5:33 PM * Full Code Date Activated Date Inactivated Comments 05/24/2021 5:54 AM 05/27/2021 6:56 PM Care Teams Environmental Engineering Technician Relationship Specialty Start Date End Date Ward Voss DO [address] [place] [address] [place] [address] PCP - General Family Medicine 02/14/23 Juan Francisco Cerda III, MD [address] [place] [address] Consulting Physician Cardiology 11/24/19 Gm Nguyễn MD [address] [place] [address] Consulting Physician Urology 05/26/21 Moe Perez MD [address] [place] [address] [place] [address] Family Medicine 05/27/21 Stefano Sánchez MD [address] [place] [address] [place] [address] Consulting Physician Ophthalmology 01/11/22
--- OUTSIDE RECORDS SUMMARY | 2025-03-14 13:20 | XMS_ITS ---
Author Organization [facility] Address [address] [place] [address] Care Team Providers Care Control Valve Mechanic Name Role Phone Prashant BRAUN MD, Juan Francisco Ochoa Unavailable [phone] Gm Nguyễn MD Unavailable [phone] Moe Perez MD Unavailable [phone] Stefano Sánchez MD Unavailable aWrd Voss DO Primary Care Provider [phone] Active Problems Problem Noted Date Diagnosed Date [...] Head CT reviewed, brain shrinkage noted. Off COMPUTER ANIMATOR meds: Valium, oxycodone, gabapentin, oxybutynin, tolerodone Urology - consider Myrbetriq Brain imaging tomorrow. Recommend brain MRI. Confusion 01/06/2023 History of 2019 novel coronavirus disease (COVID -19) 02/10/2022 COVID-19 11/26/2021 Assessment & Plan (11/26/2021 8:49 AM RAIL EXPRESS CLERK): NEG influenza A/B but +covid. Continue tylenol/ibuprofen. [...] (08/09/2020): Added automatically from request for surgery [id number] Trochanteric bursitis of left hip 06/08/2020 Ischemic [...] 03/28/2016 Mixed hyperlipidemia 03/28/2016 Coronary arteriosclerosis in [place] artery 03/27 Overview (10/22/2019): 03/16 lexiscan nuclear: [...] small RPDA Coronary artery disease invo lving [place] coronary artery of [place] heart without angina pectoris 03/27/2016 Overview (11/12/2020): [...] DISEASE (ONLY APPROVED FOR USE BY [facility] NEUROLOGY MDC TEAM)* Plan Start Date:03/19/2025 Plan [...]
--- OUTSIDE RECORDS SUMMARY | 2025-03-14 13:20 | XMS_ITS | Clinical Summary ---
Author Organization [facility] Address [address] [place] [address] Phone Care Team Providers Care Transition Advisor Name Role Phone Ward Voss DO Primary Care Provider [phone] Allergies No known active allergies Medications atorvastatin [...] (05/26/2022): Added automatically from request for surgery [id number] Trochanteric bursitis, left hip 06/08/2020 Adenopathy, cervical 10/17/2018 Aortic atherosclerosis 03/11/2018 Displaced fracture of second metatarsal bone of left foot with routine healing 01/28/2018 Tinea pedis of both feet 12/31/2017 Eczema 07/19/2017 Subacute ethmoidal sinusitis 05/15/2017 Status post placement of stent in right coronary artery 04/26/2016 Presence of coronary angioplasty implant and gra ft 04/06/2016 Coronary arteriosclerosis in [place] artery 03/27 Overview (04/11/2017): Overview: 03/16 lexiscan [...] Description 02/26/2025 2:00 PM CDT Procedure visit [facility] Sports Medicine [facility] [address] [place] [address] Ty Napoles MD Primary osteoarthritis of left hip (Primary Dx) 01/30/2025 12:15 PM CDT Ancillary Procedure [facility] Orthopedics - [facility] [address] [address] Santos Eduardo MD Pain of left hip 01/30/2025 11:45 AM CDT Office Visit [facility] Orthoped[facility] [address] [address] Santos Eduardo MD Primary osteoarthritis of left hip (Primary Dx) from Last 3 Months Immunizations Immunization Administration [...] 72 Maternal Grandfather N/A Maternal Grandmother Mother [place] at 70 Paternal Grandfather Paternal Grandmother Social [...] on file Legal Sex Male 6:10 AM PACKAGING OPERATOR Gender Identity Not on file Sexual Orientation Not on file Last Filed Vital Signs Vital Sign Reading Time Taken Comments Blood Pressure 112/84 08/08/2023 11:42 AM PACKAGING OPERATOR Pulse 78 03/12/2023 2:12 PM CDT Temperature [...] Comments ZOSTER VACCINE (1 of 2) 1998 RSV VACCINE (60+ or ) (1 - [...] years Discontinued Medical Devices Implanted Type Area Driller Brake Lining Device Identifier Shelf Expiration Date Model / Serial / Lot Shell G7 Pps Lmtd Hl 58mm [id number] - [id number] Implanted:Qty : 1 on 12/28/2022 by Santos Eduardo MD at [facility] Hip Right: Hip [employer] 09/18/2032 [id number] / / [id number] Description:CAP ROBLES Liner G7 Acet Nutrl 40mm Sz G Longevity [id number] - [id number] Implanted:Qty : 1 on 12/28/2022 by [place] Eduardo MD at [facility] Hip Right: Hip [employer] 11/07/2027 [id number] / / [id number] Description:CAP ROBLES Screw Trlgy St 6.5x30mm [id number] 0 - [id number] Implanted:Qty : 1 on 12/28/2022 by [place] Eduardo MD at [facility] Screw Right: Hip [employer] 06/19/2032 [id number] / / [id number] Description:CAP ROBLES Promus Premier Amor-03/27/2016 Implanted: by Brandon Acevedo MD (Quantity not on file) Stent Coronary [employer] 05/20/2017 / / [id number] Description:MID LAD Promus Premier Amor-03/27/2016 Implanted: by Wilberto Maldonado MD (Quantity not on file) Stent Coronary [employer] 01/23/2017 / / [id number] Description:RCA Total Biolox Delta Fem Head, 40mm, +0mm Implanted:Qty : 1 on 12/28/2022 by [place] Eduardo MD at [facility] Right: Hip J[employer]UE BI[employer] 09/18/2032 [id number] / / [id number] Description:1X ADD CAP ROBLES GIO REQ#[id number] Total Avenir Cmpl Kirk Std Nc Size 7.5 Implanted:Qty : 1 on 12/28/2022 by [place] Eduardo MD at [facility] Right: Hip [employer] 06/30/2025 [id number] / / [id number] Description:1X ADD CAP ROBLES Procedures Procedure Name [...] No acute osseous abnormality. DICTATION LOCATION: Location [address] [place] [address] Narrative 01/30/2025 1:08 PM CDT EXAMINATION: XR [...] No acute osseous abnormality. DICTATION LOCATION: Location [address] [place] [address] Santos Eduardo MD DIAGNOSTIC IMAGING ORDERABLES Fi nal Result * COLONOSCOPY REPORT (02/18/2018) Farhan Talbert MD GI PROCEDURE ORDERABLES E dited Result - Final [facility] CLIA# [id number] [address] [address] from Last 3 Months or Most Recently Relevant to Health Maintenance Insurance MEDICARE PART A AND B [employer] MCR SUPP [place]ONATHAN [id number] [address] [facility] Medicare Part D Advance Directives For more information, please contact: [phone] * Full Code (Latest Code Status on [...] 1:24 PM 03/29/2016 3:32 PM Care Teams Transition Advisor Relationship Specialty Start Date End Date Ward Voss DO [address] [facility] [phone] PCP - General Family Practice 02/22/23
--- OUTSIDE RECORDS SUMMARY | 2025-03-14 13:20 | XMS_ITS | Encounter Summary ---
Author Organization [facility] Address 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
--- OUTSIDE RECORDS SUMMARY | 2025-03-14 13:20 | XMS_ITS | Clinical Summary ---
Author Organization [facility] Address [address] [place] [address] Care Team Providers Care [place] Actor Name Role Phone Prashant BRAUN MD, Joseph Anthony Unavailable [phone] Gm Nguyễn MD Unavailable [phone] Moe Perez MD Unavailable [phone] Stefano Sánchez MD Unavailable [phone] Ward Voss DO Primary Care Provider [phone] Allergies No known active allergies Medications potassium [...] Head CT reviewed, brain shrinkage noted. Off ANALYTICAL LAB ANALYST meds: Valium, oxycodone, gabapentin, oxybutynin, tolerodone Urology - consider Myrbetriq Brain imaging tomorrow. Recommend brain MRI. Confusion 01/06/2023 History of 2019 novel coronavirus disease (COVID -19) 02/10/2022 COVID-19 11/26/2021 Assessment & Plan (11/26/2021 8:49 AM MEDICAL EDUCATION MANAGER): NEG influenza A/B but +covid. Continue tylenol/ibuprofen. [...] (08/09/2020): Added automatically from request for surgery [id number] Trochanteric bursitis of left hip 06/08/2020 Ischemic chest pain 10/22/2019 Tearing, bilateral 02/21/2019 Adenopathy, cervical 10/17/2018 Aortic atherosclerosis ([facility]/HCC) 03/11/2018 Screening for cardiovascular , respiratory, and [...] 03/28/2016 Mixed hyperlipidemia 03/28/2016 Coronary arteriosclerosis in [place] artery 03/27 Overview (10/22/2019): 03/16 lexiscan nuclear: [...] small RPDA Coronary artery disease invo lving [place] coronary artery of [place] heart without angina pectoris 03/27/2016 Overview (11/12/2020): [...] Type Department Care Team Description 02/20/2025 Telephone [place] [id number] [facility] First Floor [address] [place] [id number] Mena Garcia, A 02/20/2025 Orders Only [facility] at [address], [address] [place] [address] Ina Castanon MD Spondylosis of lumbar region without myelopathy or radiculopathy (Primary Dx) 02/17/2025 2:45 PM CDT - 02/17/2025 11:59 PM CDT Hospital Encounter [facility] [address], [address] [place] [address] Ina Castanon MD Spondylosis of lumbar region without myelopathy or radiculopathy Discharge Disposition: Discharge to home or self care 02/17/2025 Telephone [facility] [address] [facility] [address], [address] [place] [address] Ina Castanon MD post left lumbar MBB #2 02/13/2025 Telephone [facility] at [facility] [address] [place] [address] Plog, Meredith 02/13/2025 Telephone [facility] at [facility] [address] [place] [address] Carolina Rodriguez RN 02/13/2025 Orders Only [facility] [address] [facility] 6th [place] [address] [place] [address] Hanh Zhou PA 02/12/2025 2:00 PM CDT Infusion [facility] [address] [place] [address] Alzheimer disease (HCC) (Primary Dx) 02/11/2025 2:30 PM CDT Office [facility] [address] First Floor [address] [place] [address] Hanh Zhou PA Alzheimer's disease (HCC) [G30.9, F02.80] (Primary Dx) 02/11/2025 Telephone [facility] [address] First Floor [address] [place] [address] Ilia Nolen MSW 02/09/2025 2:10 PM CDT Office [facility] [address] [facility] 2nd Floor [address] [place] [address] German Muñoz MD Left hand weakness; Carpal tunnel syndrome of left wrist 02/06/2025 Telephone [facility] [address] [facility] [address], [address] [place] [address] Ina Castanon MD LMBB SCHEDULED 02/05/2025 Orders Only [facility] at [address], [address] [place] [address] Ina Castanon MD Spondylosis of lumbar region without myelopathy or radiculopathy (Primary Dx) 02/05/2025 Telephone [facility] [address], [address] [place] [address] Ina Castanon MD #2 LMBB 02/05/2025 Orders Only [facility] Office Building [address] [place] [address] Ines Keller NP Left hand weakness (Primary Dx); Carpal tunnel syndrome of left wrist 02/03/2025 3:30 PM CDT Office Visit [facility] [place] [address] [place] [address] Awilda Rodriguez NP Rash (Primary Dx) 02/03/2025 Telephone [facility] [address] [facility] First Floor [address] [place] [address] Mena Garcia, RMA Test Results 02/01/2025 Results Follow-Up [facility] [address] [place] [address] 4 [address] [place] [address] Ines Keller NP EMG/NCV - 01/29/2025 2:00 PM CDT Infusion [facility] [address] [facility] [address] [place] [address] Alzheimer disease (HCC) (Primary Dx) 01/28/2025 11:55 AM CDT - 01/28/2025 11:59 PM CDT Hospital Encounter [facility] [address] [place] [id number] Discharge Disposition: Discharge to home or self care 01/28/2025 11:55 AM CDT - 01/28/2025 11:59 PM CDT Hospital Encounter [facility] [address] [place] [address] Alzheimer's disease (HCC) Discharge Disposition: Discharge to home or self care 01/20/2025 1:00 PM CDT - 01/20/2025 11:59 PM CDT Hospital Encounter [facility] Neurology Testing [address] [place] [address] Left hand weakness Discharge Disposition: Discharge to home or self care 01/15/2025 1:00 PM CDT Infusion [facility] [place] [address] [facility] [address] [place] [address] Alzheimer disease (HCC) (Primary Dx) 01/15/2025 Telephone [facility] [address] [address], [address] [place] [address] Ina Castanon MD PT order 01/01/2025 1:00 PM CDT Infusion [facility] [place] [address] [place] [address] Alzheimer disease (HCC) (Primary Dx) 12/18/2024 1:30 PM CDT Infusion [facility] [address] [place] [address] Alzheimer disease (HCC) (Primary Dx) from Last 3 Months Immunizations [...] on file Legal Sex Male 2:04 AM MEDICAL EDUCATION MANAGER Gender Identity Male 11/27/2021 7:40 AM MEDICAL EDUCATION MANAGER Sexual Orientation Straight 11/27/2021 7: 40 AM MEDICAL EDUCATION MANAGER 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 Medical Devices Implanted Type Area Rolling Chair Pusher Device Identifier Shelf Expiration Date Model / [...] Read Routine (OP Routine) 08/17/2021 10:31 AM MEDICAL EDUCATION MANAGER Abdominal aortic ectasia Atherosclerotic heart disease of [place] coronary artery with angina pectoris Malignant hypertension from Last 3 Months or Most Recently Relevant to Health Maintenance Results * Imaging Lumbar/Sacral Facet Medial Branch Block Left (20231) (02/17/2025 3:32 PM CDT) Narrative RAD_PACS_BJWCH - [...] AMYLOID-PET/CT IMAGING DATE OF STUDY: 01/28/2025 SCANNER: BJ N mCT RADIOPHARMACEUTICAL: 11.42 mCi F-18 florbetapir [...] performed. The study was interpreted on the scenios workstation. COMPARISON CT/MRI: Brain MRI 03/18/2023 FINDINGS: There is normal cortical-white matter contrast in the cerebellum. There is normal cortical-white matter contrast throughout the cerebrum. There are no foci of increased cortical activity. Incidental CT findings: Bilateral lens replacement. Procedure Note Betsy Medrano MD PhD - 01/28/2025 EXAMINATION: BRAIN AMYLOID-PET/CT IMAGING DATE OF STUDY: 01/28/2025 SCANNER: BJ N mCT RADIOPHARMACEUTICAL: 11.42 mCi F-18 florbetapir [...] performed. The study was interpreted on the scenios workstation. COMPARISON CT/MRI: Brain MRI 03/18/2023 FINDINGS: [...] Clinical correlation recommended. Job ID/Internal Job ID: [id number] us Ines Luly Krishna BULLARD MACHINE OPERATOR NEUROLOGY ORDERABLES Fin al Result * US Abdominal Aorta (08/17/2021 10:31 AM MEDICAL EDUCATION MANAGER) Anatomical Region Laterality Modality Abdomen N/A Ultrasound 08/17/2021 10:3 9 AM MEDICAL EDUCATION MANAGER Impressions 08/17/2021 10:40 AM MEDICAL EDUCATION MANAGER Stable fusiform infrarenal aortic aneurysm. Dictated by: Damion Montez M.D. The radiology attending physician has personally reviewed this study, and had reviewed and/or edited this written report and agrees with it. Electronically signed by: Ryne Hernandez M.D. Narrative 08/17/2021 10:40 AM MEDICAL EDUCATION MANAGER EXAMINATION: AORTA SONOGRAM HISTORY: Infrarenal aortic aneurysm [...] Hernandez M.D. Juan Francisco Cerda III, MD [facility] PROCEDURES F inal Result from Last 3 Months or Most Recently Relevant to Health Maintenance Insurance MEDICARE [facility] MEDICARE SUPPLEMENT INSURANCE * Guarantor: Jose Wright Account Type Relation to Patient Date of Phone Billing Address Personal/Family Self 1950 [phone] (Work) [address] [place], [place] [id number] [facility] MEDICARE [facility] CHOICE PLUS [facility] HMO/PPO Address: [facility] [address] [place] [address] MEDICARE [facility] MEDICARE SUPPLEMENT INSURANCE Advance Directives For more information, please contact: [phone] * Full Code (Latest Code Status on File) Date Activated Date Inactivated Comments 01/06/2023 9:12 PM 01/07/2023 5:33 PM * Full Code Date Activated Date Inactivated Comments 05/24/2021 5:54 AM 05/27/2021 6:56 PM Care Teams [place] Actor Relationship Specialty Start Date End Date Ward Voss DO [address] [place] [address] [place] [address] PCP - General Family Medicine 02/14/23 Juan Francisco Cerda III, MD [address] [facility] [address] [place] [address] Consulting Physician Cardiology 11/24/19 Gm Nguyễn MD [address] [address] Consulting Physician Urology 05/26/21 Moe Perez MD [address] [place] [address] [place] [address] Family Medicine 05/27/21 Stefano Sánchez MD [address] [place] [address] Consulting Physician Ophthalmology 01/11/22
--- OUTSIDE RECORDS SUMMARY | 2025-03-14 13:20 | XMS_ITS | Encounter Summary ---
Author Organization [facility] Address [address] [place] [address] Care Team Providers Care Information And Referral Director Name Role Phone Prashant BRAUN MD, Joseph Anthony Unavailable [phone] Gm Nguyễn MD Unavailable [phone] Moe Perez MD Unavailable [phone] Stefano Sánchez MD Unavailable Ward Voss DO Primary Care Provider [phone] Reason for Visit * Reason Onset Date Comments post left lumbar MBB #2 02/17/2025 Encounter Details Date Type Department Care Team (Late st Contact Info) Description 02/17/2025 Telephone [facility] [address] [address], [address] [place] [address] Ina Castanon MD [address] [place] [address] post left lumbar MBB #2 Social History [...] on file Legal Sex Male 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 * Telephone Encounter - [...] on stairs Contact your local community or [facility] for information on exercise, fall prevention programs, or options for improving home safety. documented as of this encounter Visit Diagnoses Not on filedocumented in this encounter Care Teams Information And Referral Director Relationship Specialty Start Date End Date Ward Voss DO [address] [address] PCP - General Family Medicine 02/14/23 Juan Francisco Cerda III, MD [address] [employer] [address] [place] [address] Consulting Physician Cardiology 11/24/19 Gm Nguyễn MD [address] [employer] [address] [place] [address] Consulting Physician Urology 05/26/21 Moe Perez MD [address] [place] [address] [place] [address] Family Medicine 05/27/21 Stefano Sánchez MD [address] [place] [address] [place] [address] Consulting Physician Ophthalmology 01/11/22 documented as of this encounter
--- OUTSIDE RECORDS SUMMARY | 2025-03-14 13:20 | XMS_ITS | Encounter Summary ---
Author Organization [facility] Address 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
--- OUTSIDE RECORDS SUMMARY | 2025-03-14 13:20 | XMS_ITS | Encounter Summary ---
Author Organization [facility] Address [address] [place] [address] Care Team Providers Care Principle Software Engineer Name Role Phone Ward Voss Primary Care Provider [phone] Reason for Visit * Reason Onset Date Comments UTI vs SSTI from recent hip arthroplasty 01/08/2023 SPOKE WITH ARIELLA/ DR. 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
--- OUTSIDE RECORDS SUMMARY | 2025-03-14 13:21 | XMS_ITS | Data Portability ---
Author Organization [facility] [employer], [facility] OFF[facility] Address [address] [place] [address] Care Team Providers Care Agricultural Engineering Technicians Name Role Phone BANDAR MACKEY Primary Care [...] SNOMED-CT Code Diagnosis ICD10 Code Diagnosis Note 277319 Edin Veronica, DO [facility] OFF[facility] [address] [place] [address] 12/08/2019 12:18:11 12/12/2019 10:36:18 Pain of hip region 51690429 M25.552 Malaise and fatigue 2717 [address] R53.83 M89.9 M94.9 Z12.5 Z01.812 R53.81 E55.9 Antibiotic prophylaxis indicated [id number] Z78.9 Osteoarthr itis of right knee joint [id number] 78551 M17.11 After review of radiograph ic and [...] recommendi ng a custom measured compartmen t machine feeder brace. We measured the patient for this [...] Member ID Garcia Member ID Guarantor Name 07/14/2020 1 [facility] [id number] Jose Wright [id number] Jose Wright Notes Date Note Type Note [...] patient ever had injections? No Imported from [employer] on 12/08/2019 [place] [address], [place], [address], [facility], [facility] 12/11/2019 14:24:19
--- OUTSIDE RECORDS SUMMARY | 2025-03-14 13:21 | XMS_ITS | Clinical Summary ---
Author Organization [facility] Address [address] [place] [address] Care Team Providers Care Slurry Control Operator Helper Name Role Phone Calvin Rodriguez MD Primary Care Provider Saad jackson Source Comments [facility],non-owned Affiliates and Associated Physician Practices is amultiple site organization consisting of ambulatory clinics and hospital sitesin [place], [place], [place] and [place]. This disclosure is being madepursuant to the Care Everywhere program and may not contain all information available regarding this patient. Last updated [address].[facility] Allergies No known active allergies Medications * [...] hyperlipidemia 03/28/2016 Coronary artery disease invo lving [place] coronary artery of [place] heart without angina pectoris 03/27/2016 Overview (08/12/2020): [...] History Relation Name Comments Heart Surgery Father [place] Mother Relation Name Status Comments Brother Alive Father CABG at 72 Mother [place] at 70 Social History Tobacco Use Types [...] Comments Blood Pressure 138/84 08/12/2020 1:24 PM INSTRUCTIONAL SUPPORT SERVICES DIRECTOR Pulse 60 08/12/2020 1:24 PM INSTRUCTIONAL SUPPORT SERVICES DIRECTOR Temperature - - Respiratory Rate - - Oxygen Saturation 98% 05/27/2019 12:53 PM CDT Inhaled Oxygen Concentration - - Weight 107 kg (236 lb) 08/12/2020 1:24 PM INSTRUCTIONAL SUPPORT SERVICES DIRECTOR Height 182.9 cm (6') 08/12/2020 1:24 PM INSTRUCTIONAL SUPPORT SERVICES DIRECTOR Body Mass Index 32.01 08/12/2020 1:24 PM INSTRUCTIONAL SUPPORT SERVICES DIRECTOR Plan of Treatment Health Maintenance Due Date [...] patient's age to complete this topic Insurance [facility] Care Teams Slurry Control Operator Helper Relationship Specialty Start Date End Date Calvin Rodriguez MD PCP - General Internal Medicine 02/23/16
[2025-03-14 13:26] VITALS: BP 130/75; PULSE 104; RESP 20; TEMP 37.8; O2SAT 93
--- NOTE | 2025-03-14 13:37 | ED.GENADULT ---
HPI - General Adult General Chief complaint: Abdominal Pain Stated complaint: stomach issues Time Seen by Provider: 03/14/25 13:19 History of Present Illness HPI narrative: 74-year-old male with history of high cholesterol, hypertension, Alzheimer disease and previous urosepsis presents to the emergency department for evaluation for increased generalized weakness nausea vomiting and burning with urination. Patient was feeling fine last night but this morning began having worsening symptoms. Patient also does complain diffuse abdominal pain. Related Data Home Medications ?Medication ?Instructions ?Recorded ?Confirmed ?Last Taken ?Type metoprolol tartrate 25 mg tablet 25 mg PO BID 01/30/20 03/14/25 Unknown History Allergies Allergy/AdvReac Type Severity Reaction Status Date / Time No Known Allergies Allergy Unverified 03/14/25 12:35 Review of Systems Review of Systems: All systems reviewed & are unremarkable except as noted in HPI and below PMFSH Past Medical History Medical History Arthritis Miranda's cyst of knee Congestion of nasal sinus GERD (gastroesophageal reflux disease) HLD (hyperlipidemia) HTN (hypertension) Pseudogout involving multiple joints Rupture of gluteus minimus tendon Surgical History Surgical History History of PTCA Status post right hip replacement Family History Family History Mother Family history of mental disorder Father Hypertension Family history of cardiovascular disease Cerebrovascular accident Family history of Alzheimer's disease Sibling Family history of malignant neoplasm of brain Social History Social History Social History: Caffeine-coffee Smoking packs per day: 0.25 Smoking cigarettes per day: 5.0 Years smoked: 20 Smoking pack-years: 5.00 Smoking status: Former smoker Tobacco type: cigarettes Second hand tobacco smoke exposure: No Smoking end date: 01/20/16 Alcohol intake: never Drinks per week: 0 Substance use: never Substance use type: does not use Lack of Transportation: No Lack of Food: Never True Current Housing: Decline to Answer Concerned About Future Housing: Decline to Answer Difficulty Paying Gas/Electric Bills: Decline to Answer Difficulty Paying for Meds: Decline to Answer Currently Unemployed: Decline to Answer Education: Decline to Answer Difficulty w/ Childcare or Family Care: Decline to Answer Living arrangements: with family Occupation/Education: retired Spiritual care concerns: No Agree to blood products: Yes Exam Narrative: APPEARANCE: Ill-appearing HEAD: normocephalic, atraumatic. EYES: PERRLA/EOMI, conjunctivae clear. NOSE: Normal no drainage EARS:TMS clear with good light reflex. THROAT: Pharynx clear, no exudate. NECK: Supple. No adenopathy, no masses. RESPIRATORY: Airway patent, respirations nonlabored. Clear to auscultation bilaterally, no rales, rhonchi, wheezing. CARDIOVASCULAR: Regular rate and rhythm without murmurs rubs or gallops. ABDOMINAL: Diffuse abdominal tenderness to palpation MUSCULOSKELETAL: Moves all extremities. Strength/ROM intact, No edema, No calf tenderness. NEURO: Alert. Cranial nerves II through XII intact. Good gait. Good coordination SKIN: Warm, dry. Normal Color Course Vital Signs Vital signs: Vital Signs Temperature 100.1 F H 03/14/25 13:26 Pulse Rate 104 H 03/14/25 13:26 Respiratory Rate 20 03/14/25 13:26 Blood Pressure 130/75 03/14/25 13:26 Pulse Oximetry 93 03/14/25 13:26 Oxygen Delivery Room Air 03/14/25 13:26 Temperature 98.8 F 03/14/25 15:20 Pulse Rate 106 H 03/14/25 16:47 Respiratory Rate 19 03/14/25 16:47 Blood Pressure 122/69 03/14/25 16:47 Pulse Oximetry 98 03/14/25 16:47 Oxygen Delivery Room Air 03/14/25 13:26 Medical Decision Making [facility] Narrative Medical decision making narrative: 74-year-old male presents emergency department for evaluation for nausea fever generalized weakness and urinary symptoms. Patient is currently afebrile but does have a significant leukocytosis of 22.4 and hemoglobin of 13.3. Patient's INR is 1.0. Patient has no acute abnormalities on his CMP, with a creatinine of 1.32 which may be similar to his baseline. Patient does have a mildly elevated CRP at 1.5. Patient's procalcitonin is not elevated. Patient's lactic acid is 1.6. Urine is significant for urinary tract infection as it is leukocyte esterase positive with greater than 100 white blood cells and positive for bacteria, urine culture is pending. CT scan did show possible enteritis but I believe the patient's symptoms are most likely due to urinary tract infection. Patient was started on antibiotics in the emergency department. Blood cultures and urine cultures were pending. Patient did feel improved with IV rehydration and patient was admitted for further evaluation. Patient family updated results of the workup. Differential Diagnosis Differential Diagnosis: Colitis, diverticulitis, COVID, RSV, influenza, UTI Vital Signs Vital Signs: Vital Signs Temperature 100.1 F H 03/14/25 13:26 Pulse Rate 104 H 03/14/25 13:26 Respiratory Rate 20 03/14/25 13:26 Blood Pressure 130/75 03/14/25 13:26 Pulse Oximetry 93 03/14/25 13:26 Oxygen Delivery Room Air 03/14/25 13:26 Temperature 98.8 F 03/14/25 15:20 Pulse Rate 106 H 03/14/25 16:47 Respiratory Rate 19 03/14/25 16:47 Blood Pressure 122/69 03/14/25 16:47 Pulse Oximetry 98 03/14/25 16:47 Oxygen Delivery Room Air 03/14/25 13:26 Lab Data Lab results reviewed: Yes I reviewed the patient's lab results. 03/14/25 14:50 03/14/25 13:42 Labs: Lab Results 03/14/25 03/14/25 03/14/25 Range/Units 13:42 13:46 14:50 WBC 22.4 H (4.5-10.0) K/mm3 RBC 4.27 L (4.6-6.20) M/mm3 Hgb 13.3 L D (14.0-18.0) g/dL Hct 40.9 L (42.0-52.0) % MCV 95.8 (80-100) fl MCH 31.1 (26-34) pg MCHC 32.5 (32-36) g/dl RDW 13.4 (11.5-14.5) % Plt Count 251 D (150-375) k/mm3 MPV 8.4 (7.4-10.4) fl Immature Gran % (Auto) 0.6 H (0-0.5) % Neut % (Auto) 86.8 H (45.5-73.1) % Lymph % (Auto) 2.5 L (18.3-44.2) % [place] % (Auto) 9.9 H (2.6-8.5) % Eos % (Auto) 0.0 (0-4.4) % Baso % (Auto) 0.2 (0.2-1.2) % Lymph # (Auto) 0.55 L (0.9-3.2) K/mm3 [place] # (Auto) 2.2 H (0.1-0.6) K/mm3 Eos # (Auto) 0.0 (0-0.3) K/mm3 Baso # (Auto) 0.1 (0.0-0.1) K/mm3 Abs Immat Gran (auto) 0.13 H (0.00-0.031) K/mm3 Absolute Neuts (auto) 19.4 H (1.3-6.7) K/mm3 Absolute Nucleated RBC 0.000 (0.0-0.012) K/mm3 Band Neutrophils % Not Reportable Nucleated RBC % 0.0 (0.0-0.2) % Platelet Estimate Adequate (Adequate) Schistocytes None seen PT 13.6 (11.1-14.7) Seconds INR 1.0 APTT 24.0 (22.3-36.8) Seconds Sodium 136 L (137-145) mmol/L Potassium 4.0 (3.4-5.0) mmol/L Chloride 104 (98-107) mmol/L Carbon Dioxide 23 (22-30) mmol/L Anion Gap 9 (4-12) mmol/L BUN 21 H D (9-20) mg/dL Creatinine 1.32 H (0.7-1.3) mg/dL Estim Creat Clear Calc 54 ml/min Estimated GFR 53 L (59 - ) Glucose 116 H (65-110) mg/dL Lactic Acid 1.6 (0.7-2.0) mmol/L Calcium 9.5 (8.4-10.2) mg/dL Total Bilirubin 1.1 (0.2-1.3) mg/dL AST 31 (17-59) U/L ALT 43 (6-50) U/L Alkaline Phosphatase 90 (38-126) U/L C-Reactive Protein 1.5 H (<1.0) mg/dL Total Protein 7.5 (6.3-8.2) g/dL Albumin 4.2 (3.5-5.1) g/dL Procalcitonin 0.1 ng/mL Urine Color (Yellow) Urine Appearance (Clear) Urine pH (5.0-9.0) Ur Specific [place] (1.001-1.035) Urine Protein (Negative) mg/dL Urine Glucose (UA) (Negative) mg/dL Urine Ketones (Negative) mg/dL Ur Blood (Man) (Negative) Urine Nitrate (Negative) Urine Bilirubin (Negative) Urine Urobilinogen (<2.0) mg/dL Leukocyte Esterase Rfl (Negative) HAKAN/UL Urine RBC (0-2) /hpf Urine WBC (0-3) /hpf Ur Squamous Epith Cells (Few) /hpf Urine Bacteria /hpf Urine Casts 03/14/25 Range/Units 15:20 WBC (4.5-10.0) K/mm3 RBC (4.6-6.20) M/mm3 Hgb (14.0-18.0) g/dL Hct (42.0-52.0) % MCV (80-100) fl MCH (26-34) pg MCHC (32-36) g/dl RDW (11.5-14.5) % Plt Count (150-375) k/mm3 MPV (7.4-10.4) fl Immature Gran % (Auto) (0-0.5) % Neut % (Auto) (45.5-73.1) % Lymph % (Auto) (18.3-44.2) % [place] % (Auto) (2.6-8.5) % Eos % (Auto) (0-4.4) % Baso % (Auto) (0.2-1.2) % Lymph # (Auto) (0.9-3.2) K/mm3 [place] # (Auto) (0.1-0.6) K/mm3 Eos # (Auto) (0-0.3) K/mm3 Baso # (Auto) (0.0-0.1) K/mm3 Abs Immat Gran (auto) (0.00-0.031) K/mm3 Absolute Neuts (auto) (1.3-6.7) K/mm3 Absolute Nucleated RBC (0.0-0.012) K/mm3 Band Neutrophils % Nucleated RBC % (0.0-0.2) % Platelet Estimate (Adequate) Schistocytes PT (11.1-14.7) Seconds INR APTT (22.3-36.8) Seconds Sodium (137-145) mmol/L Potassium (3.4-5.0) mmol/L Chloride (98-107) mmol/L Carbon Dioxide (22-30) mmol/L Anion Gap (4-12) mmol/L BUN (9-20) mg/dL Creatinine (0.7-1.3) mg/dL Estim Creat Clear Calc ml/min Estimated GFR (59 - ) Glucose (65-110) mg/dL Lactic Acid (0.7-2.0) mmol/L Calcium (8.4-10.2) mg/dL Total Bilirubin (0.2-1.3) mg/dL AST (17-59) U/L ALT (6-50) U/L Alkaline Phosphatase (38-126) U/L C-Reactive Protein (<1.0) mg/dL Total Protein (6.3-8.2) g/dL Albumin (3.5-5.1) g/dL Procalcitonin ng/mL Urine Color Yellow (Yellow) Urine Appearance Cloudy H (Clear) Urine pH 6.5 (5.0-9.0) Ur Specific [place] > 1.045 H (1.001-1.035) Urine Protein Trace (Negative) mg/dL Urine Glucose (UA) Negative (Negative) mg/dL Urine Ketones Negative (Negative) mg/dL Ur Blood (Man) Non-hemolyzed trace (Negative) Urine Nitrate Negative (Negative) Urine Bilirubin Negative (Negative) Urine Urobilinogen 0.2 (<2.0) mg/dL Leukocyte Esterase Rfl 2+ H (Negative) HAKAN/UL Urine RBC 3-5 H (0-2) /hpf Urine WBC >100 H (0-3) /hpf Ur Squamous Epith Cells None seen (Few) /hpf Urine Bacteria Rare /hpf Urine Casts 0-2 Imaging Data Radiologist's impression: Impressions Chest X-Ray 03/14/25 14:24 IMPRESSION: No focal infiltrate or effusion. Abdomen/Pelvis CT 03/14/25 15:17 IMPRESSION: Cholelithiasis without cholecystitis. Findings within the left upper quadrant suggesting a focal small bowel enteritis. Limited evaluation of the bladder secondary to underdistention. Discharge Plan Discharge Clinical Impression: Nausea & vomiting, Acute pyelonephritis Patient Disposition: Still a Patient Condition: Serious
[2025-03-14] MEDS: LACTATED RINGERS 1,000 ML 999 ML IV CONT (13:52)
[2025-03-14] MEDS: ACETAMINOPHEN 500 MG TABLET 1000 MG PO (13:53)
--- OUTSIDE RECORDS SUMMARY | 2025-03-14 13:54 | XMS_ITS ---
Author Organization [facility] Address [address] [place] [address] Care Team Providers Care Professor Of Mathematics Name Role Phone Prashant BRAUN MD, Juan Francisco Ochoa Unavailable [phone] Gm Nguyễn MD Unavailable [phone] Moe Perez MD Unavailable [phone] Stefano Sánchez MD Unavailable Ward Voss DO Primary Care Provider [phone] Active Problems Problem Noted Date Diagnosed Date [...] Head CT reviewed, brain shrinkage noted. Off AUDIO VISUAL FACILITIES ENGINEER meds: Valium, oxycodone, gabapentin, oxybutynin, tolerodone Urology - consider Myrbetriq Brain imaging tomorrow. Recommend brain MRI. Confusion 01/06/2023 History of 2019 novel coronavirus disease (COVID -19) 02/10/2022 COVID-19 11/26/2021 Assessment & Plan (11/26/2021 8:49 AM TRAUMA NURSE): NEG influenza A/B but +covid. Continue tylenol/ibuprofen. [...] (08/09/2020): Added automatically from request for surgery [id number] Trochanteric bursitis of left hip 06/08/2020 Ischemic [...] 03/28/2016 Mixed hyperlipidemia 03/28/2016 Coronary arteriosclerosis in ute artery 03/27 Overview (10/22/2019): 03/16 lexiscan nuclear: [...] small RPDA Coronary artery disease invo lving ute coronary artery of [place] heart without angina pectoris 03/27/2016 Overview (11/12/2020): [...] DISEASE (ONLY APPROVED FOR USE BY THE [facility] NEUROLOGY MDC TEAM)* Plan Start Date:03/19/2025 [...]
--- OUTSIDE RECORDS SUMMARY | 2025-03-14 13:54 | XMS_ITS | Clinical Summary ---
Author Organization [facility] Address [address] [place] [address] Care Team Providers Care Operating Room Registered Nurse Name Role Phone Prashant BRAUN MD, Joseph Anthony Unavailable [phone] Gm Nguyễn MD Unavailable [phone] Moe Perez MD Unavailable [phone] Stefano Sánchez MD Unavailable Ward Voss DO Primary Care Provider [phone] Allergies No known active allergies Medications potassium [...] Head CT reviewed, brain shrinkage noted. Off SYSTEMS INTEGRATION ADVISOR meds: Valium, oxycodone, gabapentin, oxybutynin, tolerodone Urology - consider Myrbetriq Brain imaging tomorrow. Recommend brain MRI. Confusion 01/06/2023 History of 2019 novel coronavirus disease (COVID -19) 02/10/2022 COVID-19 11/26/2021 Assessment & Plan (11/26/2021 8:49 AM MISSILE INSPECTOR): NEG influenza A/B but +covid. Continue tylenol/ibuprofen. [...] (08/09/2020): Added automatically from request for surgery [id number] Trochanteric bursitis of left hip 06/08/2020 Ischemic chest pain 10/22/2019 Tearing, bilateral 02/21/2019 Adenopathy, cervical 10/17/2018 Aortic atherosclerosis ([facility]/HCC) 03/11/2018 Screening for cardiovascular , respiratory, and [...] 03/28/2016 Mixed hyperlipidemia 03/28/2016 Coronary arteriosclerosis in [place] artery 03/27 Overview (10/22/2019): 03/16 lexiscan nuclear: [...] small RPDA Coronary artery disease invo lving [place] coronary artery of [place] heart without angina pectoris 03/27/2016 Overview (11/12/2020): [...] Type Department Care Team Description 02/20/2025 Telephone [place] [id number] [facility] First Floor [address] [place] [id number] Mena Garcia, A 02/20/2025 Orders Only [facility] [address], [address] [place] [phone] Ina Castanon MD Spondylosis of lumbar region without myelopathy or radiculopathy (Primary Dx) 02/17/2025 2:45 PM CDT - 02/17/2025 11:59 PM CDT Hospital Encounter [facility] [address], [address] [place] [phone] Ina Castanon MD Spondylosis of lumbar region without myelopathy or radiculopathy Discharge Disposition: Discharge to home or self care 02/17/2025 Telephone [facility] [address] [facility] [address], [address] [place] [phone] Ina Castanon MD post left lumbar MBB #2 02/13/2025 Telephone [facility] [address] [place] [address] Plog, Meredith 02/13/2025 Telephone [facility] [address] [place] [address] Carolina Rodriguez RN 02/13/2025 Orders Only [facility] Neuro Muscle [address] [facility] 6th [place] [address] [place] [address] Hanh Zhou PA 02/12/2025 2:00 PM CDT Infusion [facility] [address] [place] [address] Alzheimer disease (HCC) (Primary Dx) 02/11/2025 2:30 PM CDT Office Visit [facility] Memory Diagnostic [address] First Floor [address] [place] [address] Hanh Zhou PA Alzheimer's disease (HCC) [G30.9, F02.80] (Primary Dx) 02/11/2025 Telephone [facility] Diagnostic [address] First Floor [address] [place] [phone] Ilia Nolen MSW 02/09/2025 2:10 PM CDT Office Visit [facility] Orthopaedic Surgery [address] [facility] 2nd Floor [address] [place] [phone] German Muñoz MD Left hand weakness; Carpal tunnel syndrome of left wrist 02/06/2025 Telephone [facility] [address] [facility] [address], [address] [place] [phone] Ina Castanon MD LMBB SCHEDULED 02/05/2025 Orders Only [facility] [address], [address] [place] [address] Ina Castanon MD Spondylosis of lumbar region without myelopathy or radiculopathy (Primary Dx) 02/05/2025 Telephone [facility] [address], [address] [place] [address] Ina Castanon MD #2 LMBB 02/05/2025 Orders Only [facility] Neurosurgery [facility] Office Building [address] [place] [address] Ines Keller NP Left hand weakness (Primary Dx); Carpal tunnel syndrome of left wrist 02/03/2025 3:30 PM CDT Office Visit [facility] [place] [address] [place] [address] Awilda Rodriguez NP Rash (Primary Dx) 02/03/2025 Telephone [facility] [address] [facility] First Floor [address] [place] [address] Mena Garcia, RMA Test Results 02/01/2025 Results Follow-Up [facility] Neurosurgery [address] [place] [address] 4 [address] [place] [address] Ines Keller NP EMG/NCV - 01/29/2025 2:00 PM CDT Infusion [facility] [address] [facility] [address] [place] [address] Alzheimer disease (HCC) (Primary Dx) 01/28/2025 11:55 AM CDT - 01/28/2025 11:59 PM CDT Hospital Encounter [facility] [address] [place] [id number] Discharge Disposition: Discharge to home or self care 01/28/2025 11:55 AM CDT - 01/28/2025 11:59 PM CDT Hospital Encounter [facility] ([facility]) [address] [place] [address] Alzheimer's disease (HCC) Discharge Disposition: Discharge to home or self care 01/20/2025 1:00 PM CDT - 01/20/2025 11:59 PM CDT Hospital Encounter [facility] Neurology Testing [address] [place] [address] Left hand weakness Discharge Disposition: Discharge to home or self care 01/15/2025 1:00 PM CDT Infusion [facility] [place] [address] [facility] [address] [place] [address] Alzheimer disease (HCC) (Primary Dx) 01/15/2025 Telephone [facility] [address] [address], [address] [place] [address] Ina Castanon MD PT order 01/01/2025 1:00 PM CDT Infusion [facility] [place] [address] [place] [address] Alzheimer disease (HCC) (Primary Dx) 12/18/2024 1:30 PM CDT Infusion [facility] [address] [place] [address] Alzheimer disease (HCC) (Primary Dx) from Last [...] on file Legal Sex Male 2:04 AM MISSILE INSPECTOR Gender Identity Male 11/27/2021 7:40 AM MISSILE INSPECTOR Sexual Orientation Straight 11/27/2021 7: 40 AM MISSILE INSPECTOR 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 Medical Devices Implanted Type Area Tobacco Drying Machine Operator Device Identifier Shelf Expiration Date Model / [...] Read Routine (OP Routine) 08/17/2021 10:31 AM MISSILE INSPECTOR Abdominal aortic ectasia Atherosclerotic heart disease of [place] coronary artery with angina pectoris Malignant hypertension from Last 3 Months or Most Recently Relevant to Health Maintenance Results * Imaging Lumbar/Sacral Facet Medial Branch Block Left (50899) (02/17/2025 3:32 PM CDT) Narrative [id number] - [...] performed. The study was interpreted on the [employer] workstation. COMPARISON CT/MRI: Brain MRI 03/18/2023 FINDINGS: [...] performed. The study was interpreted on the [employer] workstation. COMPARISON CT/MRI: Brain MRI 03/18/2023 FINDINGS: [...] Clinical correlation recommended. Job ID/Internal Job ID: [id number] us Ines Luly Krishna [facility] NEUROLOGY ORDERABLES Fin al Result * US Abdominal Aorta (08/17/2021 10:31 AM MISSILE INSPECTOR) Anatomical Region Laterality Modality Abdomen N/A Ultrasound 08/17/2021 10:3 9 AM MISSILE INSPECTOR Impressions 08/17/2021 10:40 AM MISSILE INSPECTOR Stable fusiform infrarenal aortic aneurysm. Dictated by: Damion Montez M.D. The radiology attending physician has personally reviewed this study, and had reviewed and/or edited this written report and agrees with it. Electronically signed by: Ryne Hernandez M.D. Narrative 08/17/2021 10:40 AM MISSILE INSPECTOR EXAMINATION: AORTA SONOGRAM HISTORY: Infrarenal aortic aneurysm [...] it. Electronically signed by: Ryne Hernandez M.D. JuanF rancisco Cerda III, MD [facility] PROCEDURES F inal Result from Last 3 Months or Most Recently Relevant to Health Maintenance Insurance MEDICARE [facility] MEDICARE SUPPLEMENT INSURANCE * Guarantor: Jose Wright Account Type Relation to Patient Date of Phone Billing Address Personal/Family Self 1950 [phone] (Work) [address] [place], [place] [id number] [facility] CHOICE PLUS * Guarantor: Jose Wright Account Type Relation to Patient Date of Phone Billing Address Personal/Family Self [address] [place] [id number] MEDICARE [facility] MEDICARE SUPPLEMENT INSURANCE * Guarantor: Jose Wright Account Type Relation to Patient Date of Phone Billing Address Third Democrat Liability Self [address] [place] [phone] Advance Directives For more information, please contact: [phone] * Full Code (Latest Code Status on File) Date Activated Date Inactivated Comments 01/06/2023 9:12 PM 01/07/2023 5:33 PM * Full Code Date Activated Date Inactivated Comments 05/24/2021 5:54 AM 05/27/2021 6:56 PM Care Teams Operating Room Registered Nurse Relationship Specialty Start Date End Date Ward Voss DO [address] [place] [address] [place] [address] PCP - General Family Medicine 02/14/23 Juan Francisco Cerda III, MD [address] [facility] [address] [address] Consulting Physician Cardiology 11/24/19 Gm Nguyễn MD [address] [address] Consulting Physician Urology 05/26/21 Moe Perez MD [address] [place] [address] [place] [address] Family Medicine 05/27/21 Stefano Sánchez MD [address] [facility] [place] [address] Consulting Physician Ophthalmology 01/11/22
--- OUTSIDE RECORDS SUMMARY | 2025-03-14 13:54 | XMS_ITS | Encounter Summary ---
Author Organization [facility] Address [address] [place] [address] Phone Care Team Providers Care Landscape Nurseryman Name Role Phone Prashant BRAUN MD, Joseph Anthony Unavailable [phone] Gm Nguyễn MD Unavailable [phone] Moe Perez MD Unavailable [phone] Stefano Sánchez MD Unavailable [phone] Ward Voss DO Primary Care Provider [phone] Encounter Details Date Type Department Care Team (Late st Contact Info) Description 02/01/2025 Results Follow-Up [facility] Neurosurgery [address] [facility] Medical Office Building [address] [place] [address] Ines Keller, FLACO [address] [place] [address] EMG/NCV - Social History Tobacco Use Types [...] on file Legal Sex Male 2:04 AM STEWARD/STEWARDESS DECK Gender Identity Male 11/27/2021 7:40 AM STEWARD/STEWARDESS DECK Sexual Orientation Straight 11/27/2021 7: 40 AM STEWARD/STEWARDESS DECK 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 Not on file Not [...] on filedocumented in this encounter Care Teams Landscape Nurseryman Relationship Specialty Start Date End Date Ward Voss DO [address] [place] [address] [place] [address] PCP - General Family Medicine 02/14/23 Juan Francisco Cerda III, MD [address] [employer] [facility] [address] [place], [place] [id number] Consulting Physician Cardiology 11/24/19 Gm Nguyễn MD [address] [facility] [address] [place], [place] [id number] Consulting Physician Urology 05/26/21 Moe Perez MD [address] [place] [address] [place] [address] Family Medicine 05/27/21 Stefano Sánchez MD [address] [place] [address] [place] [address] Consulting Physician Ophthalmology 01/11/22 documented as of this encounter
--- OUTSIDE RECORDS SUMMARY | 2025-03-14 13:54 | XMS_ITS | Encounter Summary ---
Author Organization [facility] Address [address] [place] [address] Care Team Providers Care Electric Clock Mechanic Name Role Phone Ward Voss Primary Care Provider [phone] Reason for Visit * Reason Onset Date Comments UTI vs SSTI from recent hip arthroplasty 01/08/2023 SPOKE WITH ARIELLA/ DR. TERRELL [place] OFFICE Encounter Details Date Type Department Care Team (Late st Contact Info) Description 01/08/2023 Telephone [facility] Admitting [address] [place] [address] [place] [address] [facility] [address] [place] [address] UTI vs SSTI from recent [...] on file Legal Sex Male 6:10 AM NANOTECHNOLOGY ENGINEERING TECHNOLOGIST Gender Identity Not on file Sexual Orientation [...] on filedocumented in this encounter Care Teams Electric Clock Mechanic Relationship Specialty Start Date End Date Ward Voss DO [facility] [phone] PCP - General Family Practice 02/22/23 documented as of this encounter
--- OUTSIDE RECORDS SUMMARY | 2025-03-14 13:54 | XMS_ITS | Encounter Summary ---
Author Organization [facility] Address [address] [place] [address] Care Team Providers Care Reheat Furnace Operator Name Role Phone SidneyWard butler Ianjosé luis Primary Care Provider [phone] Encounter Details Date Type Department Care Team (Late st Contact Info) Description 01/11/2023 Telephone [facility] Orthopedics - [place] [address] [facility] [address] [place] [address] [place] [address] [facility] [address] [place] [address] Social History Tobacco Use Types [...] on file Legal Sex Male 6:10 AM CAR BUILDER Gender Identity Not on file Sexual Orientation [...] post op appointment please call back at [phone] documented in this encounter Plan of Treatment Not on file documented as of this encounter Visit Diagnoses Not on filedocumented in this encounter Care Teams Reheat Furnace Operator Relationship Specialty Start Date End Date Ward Voss DO [facility] [place] [address] [address] PCP - General Family Practice 02/22/23 documented as of this encounter
--- OUTSIDE RECORDS SUMMARY | 2025-03-14 13:54 | XMS_ITS | Encounter Summary ---
Author Organization [facility] Healthcare Address [address] [place] [address] Care Team Providers Care Liner Replacer Name Role Phone Prashant BRAUN MD, Joseph Anthony Unavailable [phone] Gm Nguyễn MD Unavailable [phone] Moe Perez MD Unavailable [phone] Stefano Sánchez MD Unavailable Ward Voss DO Primary Care Provider [phone] Reason for Visit * Reason Onset Date Comments post left lumbar MBB #2 02/17/2025 Encounter Details Date Type Department Care Team (Late st Contact Info) Description 02/17/2025 Telephone [facility] [address] [address], [address] [place] [address] Ina Castanon MD [address] [place] [address] post left lumbar MBB #2 Social History [...] on file Legal Sex Male 2:04 AM MOUNTER HAND Gender Identity Male 11/27/2021 7:40 AM MOUNTER HAND Sexual Orientation Straight 11/27/2021 7: 40 AM MOUNTER HAND 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 * Telephone Encounter - [...] on stairs Contact your local community or [facility] for information on exercise, fall prevention programs, or options for improving home safety. documented as of this encounter Visit Diagnoses Not on filedocumented in this encounter Care Teams Liner Replacer Relationship Specialty Start Date End Date Ward Voss DO [address] [place] [address] PCP - General Family Medicine 02/14/23 Juan Francisco Cerda III, MD [address] [facility] [address] [place] [address] Consulting Physician Cardiology 11/24/19 Gm Nguyễn MD [address] [facility] [address] [place] [address] Consulting Physician Urology 05/26/21 Moe Perez MD [address] [place] [address] [place] [address] Family Medicine 05/27/21 Stefano Sánchez MD [address] [place] [address] [place] [address] Consulting Physician Ophthalmology 01/11/22 documented as of this encounter
--- OUTSIDE RECORDS SUMMARY | 2025-03-14 13:54 | XMS_ITS | Clinical Summary ---
Author Organization [facility] Address [address] [place] [address] Care Team Providers Care Stunner And Shackler Name Role Phone Calvin Rodriguez MD Primary Care Provider Saad jackson Source Comments [facility],non-owned Affiliates and Associated Physician Practices is amultiple site organization consisting of ambulatory clinics and hospital sitesin [place], [place], [place] and [place]. This disclosure is being madepursuant to the Care Everywhere program and may not contain all information available regarding this patient. Last updated 18.[facility] Allergies No known active allergies Medications * [...] hyperlipidemia 03/28/2016 Coronary artery disease invo lving [place] coronary artery of [place] heart without angina pectoris 03/27/2016 Overview (08/12/2020): [...] History Relation Name Comments Heart Surgery Father [place] Mother Relation Name Status Comments Brother Alive Father CABG at 72 Mother [place] at 70 Social History Tobacco Use Types [...] Comments Blood Pressure 138/84 08/12/2020 1:24 PM SOLE MOLDER Pulse 60 08/12/2020 1:24 PM SOLE MOLDER Temperature - - Respiratory Rate - - Oxygen Saturation 98% 05/27/2019 12:53 PM CDT Inhaled Oxygen Concentration - - Weight 107 kg (236 lb) 08/12/2020 1:24 PM SOLE MOLDER Height 182.9 cm (6') 08/12/2020 1:24 PM SOLE MOLDER Body Mass Index 32.01 08/12/2020 1:24 PM SOLE MOLDER Plan of Treatment Health Maintenance Due Date [...] patient's age to complete this topic Insurance [facility] Care Teams Stunner And Shackler Relationship Specialty Start Date End Date Calvin Rodriguez MD PCP - General Internal Medicine 02/23/16
--- OUTSIDE RECORDS SUMMARY | 2025-03-14 13:54 | XMS_ITS | Clinical Summary ---
Author Organization [facility] Address [address] [place] [address] Phone Care Team Providers Care Elevator Constructor Hydraulic Name Role Phone Ward Voss DO Primary Care Provider [phone] Allergies No known active allergies Medications atorvastatin [...] (05/26/2022): Added automatically from request for surgery [id number] Trochanteric bursitis, left hip 06/08/2020 Adenopathy, cervical 10/17/2018 Aortic atherosclerosis 03/11/2018 Displaced fracture of second metatarsal bone of left foot with routine healing 01/28/2018 Tinea pedis of both feet 12/31/2017 Eczema 07/19/2017 Subacute ethmoidal sinusitis 05/15/2017 Status post placement of stent in right coronary artery 04/26/2016 Presence of coronary angioplasty implant and gra ft 04/06/2016 Coronary arteriosclerosis in [place] artery 03/27 Overview (04/11/2017): Overview: 03/16 lexiscan [...] Description 02/26/2025 2:00 PM CDT Procedure visit [facility] Sports Medicine [facility] [id number] [place] [address] Ty Napoles MD Primary osteoarthritis of left hip (Primary Dx) 01/30/2025 12:15 PM CDT Ancillary Procedure [facility] Orthopedics - 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 Gender Identity Not on file Sexual Orientation Not on file Last Filed Vital Signs Vital Sign Reading Time Taken Comments Blood Pressure 112/84 08/08/2023 11:42 AM DIESEL TRUCK CRANE OPERATOR Pulse 78 03/12/2023 2:12 PM CDT [...] years Discontinued Medical Devices Implanted Type Area Gear Repair Supervisor Device Identifier Shelf Expiration Date Model / Serial / Lot Shell G7 Pps Lmtd Hl 58mm [id number] - [id number] Implanted:Qty : 1 on 12/28/2022 by Santos Eduardo MD at [facility] Hip Right: Hip [employer] 09/18/2032 [id number] / / [id number] Description:CAP ROBLES Liner G7 Acet Nutrl 40mm Sz G Longevity [id number] - [id number] Implanted:Qty : 1 on 12/28/2022 by Santos Eduardo MD at [facility] Hip Right: Hip [employer] 11/07/2027 [id number] / / [id number] Description:CAP ROBLES Screw Trlgy St 6.5x30mm [id number] 0 - [id number] Implanted:Qty : 1 on 12/28/2022 by Santos Eduardo MD at [facility] Screw Right: Hip [employer] 06/19/2032 [id number] / / [id number] Description:CAP ROBLES Promus Premier Amor-03/27/2016 Implanted: by Brandon Acevedo MD (Quantity not on file) Stent Coronary [employer] 05/20/2017 / / [id number] Description:MID LAD Promus Premier Amor-03/27/2016 Implanted: by Wilberto Maldonado MD (Quantity not on file) Stent Coronary [employer] 01/23/2017 / / [id number] Description:RCA Total Biolox Delta Fem Head, 40mm, +0mm Implanted:Qty : 1 on 12/28/2022 by Santos Eduardo MD at [facility] Right: Hip [employer] 09/18/2032 [id number] / / [id number] Description:1X ADD CAP ROBLES GIO REQ#[id number] Total Avenir Cmpl Kirk Std Nc Size 7.5 Implanted:Qty : 1 on 12/28/2022 by Santos Eduardo MD at [facility] Right: Hip [employer] 06/30/2025 [id number] / / [id number] Description:1X ADD CAP ROBLES Procedures Procedure Name [...] No acute osseous abnormality. DICTATION LOCATION: Location [address] [place] [address] Narrative 01/30/2025 1:08 PM CDT EXAMINATION: XR [...] No acute osseous abnormality. DICTATION LOCATION: Location [address] [place] [address] Santos Eduardo MD DIAGNOSTIC IMAGING ORDERABLES Fi nal Result * COLONOSCOPY REPORT (02/18/2018) Farhan Talbert MD GI PROCEDURE ORDERABLES E dited Result - Final [facility] CLIA# [id number] [address] [address] from Last 3 Months or Most Recently Relevant to Health Maintenance Insurance MEDICARE PART A AND B CIGNA MCR SUPP YOSVANYJONATHAN [id number] RX [facility] Medicare Part D Advance Directives For more information, please contact: [phone] * Full Code (Latest Code Status on [...] 1:24 PM 03/29/2016 3:32 PM Care Teams Elevator Constructor Hydraulic Relationship Specialty Start Date End Date Ward Voss DO [address] [facility] [address] [phone] PCP - General Family Practice 02/22/23
--- OUTSIDE RECORDS SUMMARY | 2025-03-14 13:54 | XMS_ITS | Referral Summary ---
Author Organization [facility] Address [address] [place] [address] Care Team Providers Care Medical Imaging Tech Name Role Phone Prashant BRAUN MD, Juan Francisco Ochoa Unavailable [phone] Gm Nguyễn MD Unavailable Moe Perez MD Unavailable [phone] Stefano Sánchez MD Unavailable [phone] Ward Voss DO Primary Care Provider [phone] Encounters Date Type Department Care Team Description 02/20/2025 Telephone [facility] Diagnostic Center [employer] First Floor [address] [place] [address] Mena Garcia, A 02/20/2025 Orders Only [facility] at [address], [address] [place] [address] Ina Castanon MD Spondylosis of lumbar region without myelopathy or radiculopathy (Primary Dx) 02/17/2025 Telephone [facility] at [address], [address] [place] [address] Ina Castanon MD post left lumbar MBB #2 02/17/2025 2:45 PM CDT - 02/17/2025 11:59 PM CDT Hospital Encounter [facility] [place] [address] [facility] 4, [address] [place] [address] Ina Castanon MD Spondylosis of lumbar region without myelopathy or radiculopathy Discharge Disposition: Discharge to home or self care 02/13/2025 Telephone [facility]fusion [place] [address] [place] [address] Meredith Chatman 02/13/2025 Telephone [facility] [place] [address] [place] [address] Carolina Rodriguez RN 02/13/2025 Orders Only [facility] Neuro Muscle [address] [facility] 6th [place] [address] [place] [address] Hanh Zhou PA 02/12/2025 2:00 PM CDT Infusion [facility] [place] [address] [place] [address] Alzheimer disease (HCC) (Primary Dx) 02/11/2025 Telephone [facility] [address] [place] [address] First Floor [address] [place] [address] Ilia Nolen MSW 02/11/2025 2:30 PM CDT Office Visit [facility] [address] [place] [address] First Floor [address] [place] [address] Hanh Zhou PA Alzheimer's disease (HCC) [G30.9, F02.80] (Primary Dx) 02/09/2025 2:10 PM CDT Office Visit [facility] Orthopaedic Surgery [address] [facility] 2nd Floor [address] [place] [address] German Muñoz MD Left hand weakness; Carpal tunnel syndrome of left wrist 02/06/2025 Telephone [facility] at [address], [address] [place] [address] Ina Castanon MD LMBB SCHEDULED 02/05/2025 Orders Only [facility] at [address], [address] [place] [address] Ina Castanon MD Spondylosis of lumbar region without myelopathy or radiculopathy (Primary Dx) 02/05/2025 Telephone [facility] at [address], [address] [place] [address] Ina Castanon MD #2 LMBB 02/05/2025 Orders Only [facility] Neurosurgery [address] [place] [address] Office Building [address] [place] [address] Ines Keller NP Left hand weakness (Primary Dx); Carpal tunnel syndrome of left wrist 02/03/2025 3:30 PM CDT Office Visit [facility] [place] [address] [place] [address] Awilda Rodriguez NP Rash (Primary Dx) 02/03/2025 Telephone [facility] [address] [facility] First Floor [address] [place] [address] Mena Garcia, RMA Test Results 02/01/2025 Results Follow-Up [facility] Neurosurgery [address] [place] [address] 4 [address] [place] [address] Ines Keller NP EMG/NCV - 01/29/2025 2:00 PM CDT Infusion [facility] [address] [facility] [address] [place] [address] Alzheimer disease (HCC) (Primary Dx) 01/28/2025 11:55 AM CDT - 01/28/2025 11:59 PM CDT Hospital Encounter [facility] [address] [place] [id number] Discharge Disposition: Discharge to home or self care 01/28/2025 11:55 AM CDT - 01/28/2025 11:59 PM CDT Hospital Encounter [facility]) [address] [place] [address] Alzheimer's disease (HCC) Discharge Disposition: Discharge to home or self care 01/20/2025 1:00 PM CDT - 01/20/2025 11:59 PM CDT Hospital Encounter [facility] Neurology Testing [address] [place] [address] Left hand weakness Discharge Disposition: Discharge to home or self care 01/15/2025 Telephone [facility] [address] [address], [address] [place] [address] Ina Castanon MD PT order 01/15/2025 1:00 PM CDT Infusion [address] [place] [address] Alzheimer disease (HCC) (Primary Dx) 01/01/2025 1:00 PM CDT Infusion [address] [place] [address] Alzheimer disease (HCC) (Primary Dx) 12/18/2024 1:30 PM CDT Infusion [address] [place] [address] Alzheimer disease (HCC) (Primary Dx) from Last [...] Head CT reviewed, brain shrinkage noted. Off PIPE PRODUCTION WORKER meds: Valium, oxycodone, gabapentin, oxybutynin, tolerodone Urology - consider Myrbetriq Brain imaging tomorrow. Recommend brain MRI. Confusion 01/06/2023 History of 2019 novel coronavirus disease (COVID -19) 02/10/2022 COVID-19 11/26/2021 Assessment & Plan (11/26/2021 8:49 AM ORDNANCE EQUIPMENT WORKER): NEG influenza A/B but +covid. Continue tylenol/ibuprofen. [...] (08/09/2020): Added automatically from request for surgery [id number] Trochanteric bursitis of left hip 06/08/2020 Ischemic chest pain 10/22/2019 Tearing, bilateral 02/21/2019 Adenopathy, cervical 10/17/2018 Aortic atherosclerosis (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 Medical Devices Implanted Type Area Proposal Writer Device Identifier Shelf Expiration Date Model / [...] Read Routine (OP Routine) 08/17/2021 10:31 AM ORDNANCE EQUIPMENT WORKER Abdominal aortic ectasia Atherosclerotic heart disease of [place] coronary artery with angina pectoris Malignant hypertension from Last 3 Months or Most Recently Relevant to Health Maintenance Results * Imaging Lumbar/Sacral Facet Medial Branch Block Left ([id number]) (02/17/2025 3:32 PM CDT) Narrative RAD_PACS_BJWCH - [...] AMYLOID-PET/CT IMAGING DATE OF STUDY: 01/28/2025 SCANNER: [facility] RADIOPHARMACEUTICAL: 11.42 mCi F-18 florbetapir i.v. HISTORY: [...] AMYLOID-PET/CT IMAGING DATE OF STUDY: 01/28/2025 SCANNER: [facility] RADIOPHARMACEUTICAL: 11.42 mCi F-18 florbetapir i.v. HISTORY: [...] performed. The study was interpreted on the [employer] workstation. COMPARISON CT/MRI: Brain MRI 03/18/2023 FINDINGS: [...] Clinical correlation recommended. Job ID/Internal Job ID: [id number] Ines Keller NP NEUROLOGY ORDERABLES Fin al Result * US Abdominal Aorta (08/17/2021 10:31 AM ORDNANCE EQUIPMENT WORKER) Anatomical Region Laterality Modality Abdomen N/A Ultrasound 08/17/2021 10:3 9 AM ORDNANCE EQUIPMENT WORKER Impressions 08/17/2021 10:40 AM ORDNANCE EQUIPMENT WORKER Stable fusiform infrarenal aortic aneurysm. Dictated by: Damion Montez M.D. The radiology attending physician has personally reviewed this study, and had reviewed and/or edited this written report and agrees with it. Electronically signed by: Ryne Hernandez M.D. Narrative 08/17/2021 10:40 AM ORDNANCE EQUIPMENT WORKER EXAMINATION: AORTA SONOGRAM HISTORY: Infrarenal aortic aneurysm [...] Hernandez M.D. Juan Francisco Cerda III, MD [facility] US PROCEDURES F inal Result from Last 3 Months or Most Recently Relevant to Health Maintenance Insurance MEDICARE [facility] MEDICARE SUPPLEMENT INSURANCE * Guarantor: Jose Wright Account Type Relation to Patient Date of Phone Billing Address Personal/Family Self 1950 [phone] (Work) [address] [place], [place] [id number] MEDICARE [facility] MEDICARE [facility] CHOICE [facility]US [facility] HMO/PPO Address: [address] [address] [place] [address] MEDICARE [facility] MEDICARE SUPPLEMENT INSURANCE Advance Directives For more information, please contact: [phone] * Full Code (Latest Code Status on File) Date Activated Date Inactivated Comments 01/06/2023 9:12 PM 01/07/2023 5:33 PM * Full Code Date Activated Date Inactivated Comments 05/24/2021 5:54 AM 05/27/2021 6:56 PM Care Teams Medical Imaging Tech Relationship Specialty Start Date End Date Ward Voss DO [address] [place] [address] [place] [address] PCP - General Family Medicine 02/14/23 Juan Francisco Cerda III, MD [address] [place] [address] Consulting Physician Cardiology 11/24/19 Gm Nguyễn MD [address] [place] [address] Consulting Physician Urology 05/26/21 Moe Perez MD [address] [place] [address] [place] [address] Family Medicine 05/27/21 Stefano Sánchez MD [address] [place] [address] [place] [address] Consulting Physician Ophthalmology 01/11/22
--- OUTSIDE RECORDS SUMMARY | 2025-03-14 13:54 | XMS_ITS | Encounter Summary ---
Author Organization [facility] Address [address] [place] [address] Care Team Providers Care Laboratory Analyst Name Role Phone SidneyWard butler Ianjosé luis Primary Care Provider [phone] Encounter Details Date Type Department Care Team (Late st Contact Info) Description 01/11/2023 Telephone [facility]3] Orthopedics - [place] [address] [facility] [address] [place] [address] [place] [address] [facility] [address] [place] [address] Social History Tobacco Use Types [...] on file Legal Sex Male 6:10 AM BARYTES GRINDER Gender Identity Not on file Sexual Orientation [...] on filedocumented in this encounter Care Teams Laboratory Analyst Relationship Specialty Start Date End Date Ward Voss DO [facility] [place] [phone] PCP - General Family Practice 02/22/23 documented as of this encounter
[2025-03-14] MEDS: MORPHINE SULFATE (*CRX) 2 MG/ML INJ IV PUSH (13:58)
[2025-03-14 14:20] LABS: Prothrombin Time 13.6 Seconds (11.1-14.7)
[2025-03-14 14:21] LABS: Lactic Acid Reflex 1.6 mmol/L (0.7-2.0)
[2025-03-14 14:24] LABS: Alanine Aminotransferase 43 U/L (6-50); Albumin Level 4.2 g/dL (3.5-5.1); Alkaline Phosphatase 90 U/L (38-126); Anion Gap 9 mmol/L (4-12); Aspartate Amino Transferase 31 U/L (17-59); Bilirubin,Total 1.1 mg/dL (0.2-1.3); Blood Urea Nitrogen 21 mg/dL (9-20); CRP 1.5 mg/dL (<1.0); Calcium 9.5 mg/dL (8.4-10.2); Carbon Dioxide 23 mmol/L (22-30); Chloride 104 mmol/L (98-107); Estimated CRCL calculation 54 ml/min; Estimated Glomerular Filt Rate 53; Glucose 116 mg/dL (65-110); Sodium 136 mmol/L (137-145); Total Protein 7.5 g/dL (6.3-8.2)
[2025-03-14 14:35] LABS: Procalcitonin 0.1 ng/mL
[2025-03-14 14:56] LABS: Basophils Absolute Auto 0.1 K/mm3 (0.0-0.1); Basophils Percent Auto 0.2 % (0.2-1.2); Hematocrit 40.9 % (42.0-52.0); Hemoglobin 13.3 g/dL (14.0-18.0); Immature Granulocyte Absolute 0.13 K/mm3 (0.00-0.031); Immature Granulocyte Percent A 0.6 % (0-0.5); Lymphocytes Absolute Auto 0.55 K/mm3 (0.9-3.2); Lymphocytes Percent Auto 2.5 % (18.3-44.2); Mean Corpuscular HGB Conc 32.5 g/dl (32-36); Mean Corpuscular Hemoglobin 31.1 pg (26-34); Mean Corpuscular Volume 95.8 fl (80-100); Mean Platelet Volume 8.4 fl (7.4-10.4); Monocytes Absolute Auto 2.2 K/mm3 (0.1-0.6); Monocytes Percent Auto 9.9 % (2.6-8.5); Neutrophils Absolute Auto 19.4 K/mm3 (1.3-6.7); Neutrophils Percent Auto 86.8 % (45.5-73.1); Platelet Count Result 251 k/mm3 (150-375); Red Blood Count 4.27 M/mm3 (4.6-6.20); Red Cell Distribution Width 13.4 % (11.5-14.5); White Blood Count 22.4 K/mm3 (4.5-10.0)
[2025-03-14 15:10] LABS: Platelet Estimate Adequate (Adequate); Schistocytes None Seen
[2025-03-14 15:20] VITALS: TEMP 37.1
[2025-03-14 15:30] LABS: Add Urine Microscopic? YES; Appearance Urine Cloudy (Clear); Bacteria Urine Rare /hpf; Bilirubin Urine Negative (Negative); Blood Urine Non-Hemolyzed Trace (Negative); Color Urine Yellow (Yellow); Glucose Urine UA Negative (Negative); Ketones Urine Negative (Negative); Leukocyte Esterase Ur 2+ LEU/UL (Negative); Nitrate Urine Negative (Negative); Non Pathogenic Casts 0-2; Protein Urine Trace mg/dL (Negative); Specific Grav Ur > 1.045 (1.001-1.035); Squamous Epithelial Cell Urine None Seen /hpf (Few); Urobilinogen Urine 0.2 mg/dL (<2.0); WBC Urine >100 /hpf (0-3); pH Urine 6.5 (5.0-9.0)
--- NOTE | 2025-03-14 16:44 | P.HP_ITS ---
H&P: HPI History of Present Illness Date/Time: 03/14/25 16:44 Chief Complaint: Abdominal pain Narrative: 74-year-old male past medical history of hyperlipidemia, hypertension, Alzheimer's in previous urosepsis presents the hospital with abdominal pain. The patient's daughter use to be a ED doctor here and states that her father symptoms are the same as when he had urosepsis previously. HPI is limited as patient has severe Alzheimer's. at bedside. Patient complains of back pain however this is chronic pain he states that is no worse than normal. Lab work showed leukocytosis at 22.4 anemia at 13.3 which is higher than baseline, creatinine of 1.3 with previous creatinine higher, GFR 53, C reactive protein 1.5, UA shows cloudy 2+ leukocyte esterase, over 100 wbc's, nitrate negative. CT abdomen chest shows cholelithiasis, and small bowel enteritis. Chest x-ray shows no acute process. Sinus tachycardia with first-degree AV block rate of 105. Review of Systems Review of Systems: ROS unobtainable: Yes unobtainable due to mental status PMFSH Past Medical History Medical History Arthritis Miranda's cyst of knee Congestion of nasal sinus GERD (gastroesophageal reflux disease) HLD (hyperlipidemia) HTN (hypertension) Pseudogout involving multiple joints Rupture of gluteus minimus tendon Surgical History Surgical History History of PTCA Status post right hip replacement Family History Family History Mother Family history of mental disorder Father Hypertension Family history of cardiovascular disease Cerebrovascular accident Family history of Alzheimer's disease Sibling Family history of malignant neoplasm of brain Social History Social History Social History: Caffeine-coffee Smoking packs per day: 2 Smoking cigarettes per day: 40.0 Years smoked: 25 Smoking pack-years: 50.00 Smoking status: Former smoker Tobacco type: cigarettes Second hand tobacco smoke exposure: No Smoking end date: 10/01/00 Alcohol intake: current Drinks per week: 0 Substance use: never Substance use type: does not use Do You Feel Safe in your Home?: Yes Lack of Transportation: No Lack of Food: Never True Current Housing: I Have Housing Concerned About Future Housing: No Difficulty Paying Gas/Electric Bills: No Difficulty Paying for Meds: No Currently Unemployed: No Education: Decline to Answer Difficulty w/ Childcare or Family Care: No Living arrangements: with family Occupation/Education: retired Spiritual care concerns: No Agree to blood products: Yes Meds Home Medications and Allergies Home Medications ?Medication ?Instructions ?Recorded ?Confirmed ?Type metoprolol tartrate 25 mg tablet 25 mg PO BID 01/30/20 03/14/25 History hydralazine 25 mg tablet 25 mg PO BID #60 tabs 01/18/23 03/14/25 Rx lisinopril 10 mg tablet 10 mg PO DAILY #30 tabs 01/18/23 03/14/25 Rx aspirin 81 mg capsule 81 mg PO DAILY 03/14/25 03/14/25 History atorvastatin 40 mg tablet 40 mg PO QPM 03/14/25 03/14/25 History cholecalciferol (vitamin D3) 25 25 mcg PO DAILY 03/14/25 03/14/25 History mcg (1,000 unit) tablet (Vitamin D3) potassium chloride 10 mEq 10 meq PO BID 03/14/25 03/14/25 History tablet,extended release vitamin B complex 1 tablet PO DAILY 03/14/25 03/14/25 History Allergies Allergy/AdvReac Type Severity Reaction Status Date / Time No Known Allergies Allergy Verified 03/14/25 18:49 Vital Signs Vital Signs - 24 hr 03/14/25 13:26 03/14/25 15:20 Temperature 100.1 F H 98.8 F Pulse Rate 104 H Respiratory Rate 20 Blood Pressure 130/75 Pulse Oximetry 93 Oxygen Delivery Room Air Exam Narrative: General: well appearing, appears stated age. HEENT: normocephalic, atraumatic. Mucous membranes moist. EOMI, PERRLA, b ilateral sclera anicteric, no conjunctival injection. Neck supple without JVD, lymphadenopathy, or bruit. Respiratory: clear to ascultation bilaterally. No rales/rhonic/wheezes. Cardiovascular: Regular rate and rhythm, normal S1-S2 upon ascultation. No murmurs, rubs, or clicks. PMI is nondisplaced, capillary refill less than 3 second. Abdomen: Soft, round, no pulsatile masses, nondistended and nontender. No rebound, no guarding. No CVA tenderness, no hepatosplenomegaly. Bowel sounds present to all four quadrants. No high pitch or tinkling sounds, resonant to percussion. Extremities: No cyanosis, clubbing, or edema present. Pulses are palpable 2/2. Active ROM to all four extremities. Neuro: Alert and orientated x 4. PERRLA. Cranial nerves 2-12 intact without focal deficit. Skin: Warm, dry, and intact, without rash, erythema, or lesion. Psych: pleasant, cooperative, normal speech, normal affect, no hallucinations, no dysarthia H&P: Results Labs Labs: Short CBC 03/14/25 Range/Units 14:50 WBC 22.4 H (4.5-10.0) K/mm3 Hgb 13.3 L D (14.0-18.0) g/dL Hct 40.9 L (42.0-52.0) % Plt Count 251 D (150-375) k/mm3 BMP 03/14/25 13:42 Sodium 136 L Potassium 4.0 Chloride 104 Carbon Dioxide 23 BUN 21 H D Creatinine 1.32 H Glucose 116 H Calcium 9.5 Liver Function 03/14/25 Range/Units 13:42 Total Bilirubin 1.1 (0.2-1.3) mg/dL AST 31 (17-59) U/L ALT 43 (6-50) U/L Alkaline Phosphatase 90 (38-126) U/L Albumin 4.2 (3.5-5.1) g/dL Urine 03/14/25 Range/Units 15:20 Urine Color Yellow (Yellow) Urine Appearance Cloudy H (Clear) Urine pH 6.5 (5.0-9.0) Ur Specific [place] > 1.045 H (1.001-1.035) Urine Protein Trace (Negative) mg/dL Urine Glucose (UA) Negative (Negative) mg/dL Assessment and Plan Assessment and plan (1) Urinary tract infection: Code(s): N39.0 - Urinary tract infection, site not specified Status: Acute Assessment and Plan: Fluid bolus given in ED Urine cultures pending IV Rocephin IVF for hydration Blood cultures pending (2) HTN (hypertension), benign: Code(s): I10 - Essential (primary) hypertension Status: Acute Assessment and Plan: Continue hydralazine and lisinopril (3) BPH (benign prostatic hyperplasia): Code(s): N40.0 - Benign prostatic hyperplasia without lower urinary tract symptoms Status: Acute Assessment and Plan: Start Flomax (4) Anemia: Code(s): D64.9 - Anemia, unspecified Status: Acute Assessment and Plan: Anemia workup pending Quality VTE Prophylaxis VTE prophylaxis: mechanical ordered Hospitalist MIPS Advance Care Plan I have confirmed that the patient's Advanced Care Plan is present, code status is documented, or surrogate decision maker is listed in patient medical record.: Yes Medication Reconciliation I have utilized all available resources to obtain, update and review the patients current medications (includes all prescriptions, OTC, herbals, cannabis, and nutritional supplements).: Yes
[2025-03-14 16:47] VITALS: BP 122/69; PULSE 106; RESP 19; O2SAT 98
--- NOTE | 2025-03-14 18:31 | ADMGEN ---
This patient, Jose Wright, was admitted to [facility] Surg Room 331-02. Patient/family oriented to hospital policies and general routines including ID bracelet, bed and alarms, visiting hours, pain management, procedures, bathroom and other care routines, personal items, smoking policy, room service/diet, and visiting hours. Information on how to activate the Rapid Response Team has been discussed. Patient/Family are encouraged to report perceived risks to care and to ask questions if they do not understand what they are told or what they should do.
[2025-03-14 20:00] VITALS: PULSE 104
[2025-03-14 20:53] VITALS: BP 125/52; PULSE 105; RESP 20; TEMP 37.2; O2SAT 99
[2025-03-14] MEDS: SODIUM CHLORIDE 0.9% IV 1,000 ML 75 ML IV CONT (23:13)
[2025-03-15] VITALS (12 sets, daily range): BP systolic 90–136; BP diastolic 53–63; PULSE 63–115; RESP 16–20; TEMP 36.4–37.1; O2SAT 94–96
[2025-03-15 08:28] LABS: Iron 12 ug/dL (49-181); Percent Iron Saturation 4 % (20-50)
[2025-03-15 08:59] LABS: Folic Acid 2.8 ng/mL (2.76->20)
[2025-03-15] MEDS: TAMSULOSIN HCL 0.4 MG CAPSULE PO (10:16)
[2025-03-15] MEDS: hydrALAZINE HCL 25 MG TABLET PO ×2 (10:16→17:26)
[2025-03-15] MEDS: METOPROLOL TARTRATE 25 MG TABLET PO ×2 (10:16→20:44)
[2025-03-15] MEDS: lisinopriL 10 MG TABLET PO (10:16)
[2025-03-15] MEDS: ASPIRIN 81 MG CHEWABLE TABLET PO (10:16)
[2025-03-15 13:20] LABS: Basophils Absolute Auto 0.1 K/mm3 (0.0-0.1); Basophils Percent Auto 0.3 % (0.2-1.2); Hematocrit 41.4 % (42.0-52.0); Hemoglobin 13.2 g/dL (14.0-18.0); Immature Granulocyte Absolute 0.34 K/mm3 (0.00-0.031); Immature Granulocyte Percent A 1.1 % (0-0.5); Lymphocytes Absolute Auto 1.21 K/mm3 (0.9-3.2); Mean Corpuscular HGB Conc 31.9 g/dl (32-36); Mean Corpuscular Hemoglobin 31.4 pg (26-34); Mean Corpuscular Volume 98.6 fl (80-100); Monocytes Absolute Auto 3.4 K/mm3 (0.1-0.6); Monocytes Percent Auto 11.2 % (2.6-8.5); Neutrophils Absolute Auto 25.1 K/mm3 (1.3-6.7); Neutrophils Percent Auto 83.4 % (45.5-73.1); Platelet Count Result 254 k/mm3 (150-375); Red Cell Distribution Width 14.2 % (11.5-14.5); White Blood Count 30.1 K/mm3 (4.5-10.0)
[2025-03-15 13:29] LABS: Alanine Aminotransferase 29 U/L (6-50); Albumin Level 3.6 g/dL (3.5-5.1); Alkaline Phosphatase 71 U/L (38-126); Anion Gap 8 mmol/L (4-12); Aspartate Amino Transferase 23 U/L (17-59); Bilirubin,Total 1.2 mg/dL (0.2-1.3); Blood Urea Nitrogen 19 mg/dL (9-20); Calcium 8.6 mg/dL (8.4-10.2); Carbon Dioxide 22 mmol/L (22-30); Chloride 104 mmol/L (98-107); Estimated CRCL calculation 49 ml/min; Estimated Glomerular Filt Rate 47; Glucose 108 mg/dL (65-110); Magnesium 1.8 mg/dL (1.6-2.3); Potassium 3.8 mmol/L (3.4-5.0); Sodium 134 mmol/L (137-145); Total Protein 6.4 g/dL (6.3-8.2)
--- NOTE | 2025-03-15 13:47 | PM.IMPN ---
Progress Note: A&P Assessment and Plan (1) Urinary tract infection: Code(s): N39.0 - Urinary tract infection, site not specified Status: Acute (2) HTN (hypertension), benign: Code(s): I10 - Essential (primary) hypertension Status: Acute (3) BPH (benign prostatic hyperplasia): Code(s): N40.0 - Benign prostatic hyperplasia without lower urinary tract symptoms Status: Acute (4) Anemia: Code(s): D64.9 - Anemia, unspecified Status: Acute Assessment and Plan: Appt Plan 74-year-old male past medical history of hyperlipidemia, hypertension, Alzheimer's in previous urosepsis presents the hospital with abdominal pain. The patient's daughter use to be a ED doctor here and states that her father symptoms are the same as when he had urosepsis previously. HPI is limited as patient has severe Alzheimer's. at bedside. Patient complains of back pain however this is chronic pain he states that is no worse than normal. Lab work showed leukocytosis at 22.4 anemia at 13.3 which is higher than baseline, creatinine of 1.3 with previous creatinine higher, GFR 53, C reactive protein 1.5, UA shows cloudy 2+ leukocyte esterase, over 100 wbc's, nitrate negative. CT abdomen chest shows cholelithiasis, and small bowel enteritis. Chest x-ray shows no acute process. Sinus tachycardia with first-degree AV block rate of 105. Patient has been started on IV Rocephin. Blood culture no growth today. Urine culture pending. WBC count worsened to 30 K today. Continue IV fluid resuscitation To cover for enteritis will switch antibiotic to IV Zosyn. DVT prophylaxis Lovenox Code status full code Hypertension Hyperlipidemia CKD stage 3 Alzheimer's dementia Anemia mild BPH started on Flomax Subjective Date/time seen: 03/15/25 13:47 Interval history: Reports urinary symptoms. Remains afebrile. Tachycardia has improved. Review of Systems Review of Systems: All systems reviewed & are unremarkable except as noted in HPI and below Exam Narrative: General: well appearing, appears stated age. Not in acute distress HEENT: normocephalic, atraumatic. Mucous membranes moist. EOMI, PERRLA, Respiratory: clear to ascultation bilaterally. No rales/rhonic/wheezes. Cardiovascular: Regular rate and rhythm, normal S1-S2 upon ascultation. No murmurs, rubs, or clicks Abdomen: Soft, round, no pulsatile masses, nondistended and nontender. No rebound, no guarding. Extremities: No cyanosis, clubbing, or edema present. Pulses are palpable 2/2. Active ROM to all four extremities. Neuro: Alert and orientated x 4. PERRLA. Cranial nerves 2-12 intact without focal deficit. Skin: Warm, dry, and intact, without rash, erythema, or lesion. Psych: pleasant, cooperative, normal speech, normal affect, no hallucinations, no dysarthia Objective Data Vital Signs Vital Signs: Vital Signs - 24 hr 03/14/25 15:20 03/14/25 16:47 03/14/25 20:00 Temperature 98.8 F Pulse Rate 106 H Respiratory Rate 19 Blood Pressure 122/69 Pulse Oximetry 98 Oxygen Delivery Room Air 03/14/25 20:00 03/14/25 20:53 03/15/25 00:00 Temperature 98.9 F Pulse Rate 104 H 105 H 104 H Respiratory Rate 20 Blood Pressure 125/52 L Pulse Oximetry 99 Oxygen Delivery 03/15/25 04:00 03/15/25 06:00 03/15/25 09:19 Temperature 97.9 F Pulse Rate 115 H 89 Respiratory Rate 20 Blood Pressure 136/63 Pulse Oximetry 95 96 Oxygen Delivery Room Air 03/15/25 10:16 Temperature Pulse Rate 89 Respiratory Rate Blood Pressure Pulse Oximetry Oxygen Delivery Intake/Output Intake/Output: Intake & Output 03/12/25 03/13/25 03/14/25 03/15/25 23:59 23:59 23:59 23:59 Intake Total 1050 0 Output Total 0 Balance 1050 0 Meds/Results Medications: Active Medications Generic Name Dose Route Start Last Admin Trade Name Freq PRN Reason Stop Dose Admin Aspirin 81 mg 03/15/25 08:00 03/15/25 10:16 Aspirin 81 Mg Chewable Tablet PO 81 mg DAILY@0800 [facility] Administration Atorvastatin Calcium 40 mg 03/15/25 18:00 Atorvastatin 40 Mg Tablet PO QPM [facility] Hydralazine HCl 25 mg 03/15/25 08:00 03/15/25 10:16 Hydralazine Hcl 25 Mg Tablet PO 25 mg BIDWM [facility] Administration Ceftriaxone Sodium 1 gm in 50 mls @ 100 mls/hr 03/15/25 14:00 Rocephin 1 Gm/Ns 50 Ml IVPB Q24H KATIE Sodium Chloride 1,000 mls @ 75 mls/hr 03/14/25 22:45 03/14/25 23:13 Normal Saline Iv IV CONT 75 mls/hr .[id number] KATIE Administration Lisinopril 10 mg 03/15/25 09:00 03/15/25 10:16 Lisinopril 10 Mg Tablet PO 10 mg DAILY KATIE Administration Metoprolol Tartrate 25 mg 03/15/25 09:00 03/15/25 10:16 Metoprolol Tartrate 25 Mg Tablet PO 25 mg Q12HR KATIE Administration Tamsulosin HCl 0.4 mg 03/15/25 09:00 03/15/25 10:16 Tamsulosin Hcl 0.4 Mg Capsule PO 0.4 mg QAM KATIE Administration Radiology Results: ITS Impressions Chest X-Ray 03/14/25 14:24 IMPRESSION: No focal infiltrate or effusion. Abdomen/Pelvis CT 03/14/25 15:17 IMPRESSION: Cholelithiasis without cholecystitis. Findings within the left upper quadrant suggesting a focal small bowel enteritis. Limited evaluation of the bladder secondary to underdistention. Labs Labs: Laboratory Results - last 24 hr 03/14/25 03/14/25 03/14/25 13:42 13:46 14:50 WBC 22.4 H RBC 4.27 L Hgb 13.3 L D Hct 40.9 L MCV 95.8 MCH 31.1 MCHC 32.5 RDW 13.4 Plt Count 251 D MPV 8.4 Immature Gran % (Auto) 0.6 H Neut % (Auto) 86.8 H Lymph % (Auto) 2.5 L [place] % (Auto) 9.9 H Eos % (Auto) 0.0 Baso % (Auto) 0.2 Lymph # (Auto) 0.55 L [place] # (Auto) 2.2 H Eos # (Auto) 0.0 Baso # (Auto) 0.1 Abs Immat Gran (auto) 0.13 H Absolute Neuts (auto) 19.4 H Absolute Nucleated RBC 0.000 Band Neutrophils % Not Reportable Nucleated RBC % 0.0 Platelet Estimate Adequate Schistocytes None seen PT 13.6 INR 1.0 APTT 24.0 Sodium 136 L Potassium 4.0 Chloride 104 Carbon Dioxide 23 Anion Gap 9 BUN 21 H D Creatinine 1.32 H Estim Creat Clear Calc 54 Estimated GFR 53 L Glucose 116 H Lactic Acid 1.6 Calcium 9.5 Magnesium Iron TIBC % Saturation Total Bilirubin 1.1 AST 31 ALT 43 Alkaline Phosphatase 90 C-Reactive Protein 1.5 H Total Protein 7.5 Albumin 4.2 Vitamin B12 Folate Procalcitonin 0.1 Urine Color Urine Appearance Urine pH Ur Specific [place] Urine Protein Urine Glucose (UA) Urine Ketones Ur Blood (Man) Urine Nitrate Urine Bilirubin Urine Urobilinogen Leukocyte Esterase Rfl Urine RBC Urine WBC Ur Squamous Epith Cells Urine Bacteria Urine Casts 03/14/25 03/15/25 15:20 06:36 WBC 30.1 H RBC 4.20 L Hgb 13.2 L Hct 41.4 L MCV 98.6 MCH 31.4 MCHC 31.9 L RDW 14.2 Plt Count 254 MPV 9.0 Immature Gran % (Auto) 1.1 H Neut % (Auto) 83.4 H Lymph % (Auto) 4.0 L [place] % (Auto) 11.2 H Eos % (Auto) 0.0 Baso % (Auto) 0.3 Lymph # (Auto) 1.21 [place] # (Auto) 3.4 H Eos # (Auto) 0.0 Baso # (Auto) 0.1 Abs Immat Gran (auto) 0.34 H Absolute Neuts (auto) 25.1 H Absolute Nucleated RBC 0.000 Band Neutrophils % Nucleated RBC % 0.0 Platelet Estimate Schistocytes PT INR APTT Sodium 134 L Potassium 3.8 Chloride 104 Carbon Dioxide 22 Anion Gap 8 BUN 19 Creatinine 1.45 H Estim Creat Clear Calc 49 Estimated GFR 47 L Glucose 108 Lactic Acid Calcium 8.6 Magnesium 1.8 Iron 12 L TIBC 286 % Saturation 4 L Total Bilirubin 1.2 AST 23 ALT 29 Alkaline Phosphatase 71 C-Reactive Protein Total Protein 6.4 Albumin 3.6 Vitamin B12 268.0 Folate 2.8 Procalcitonin Urine Color Yellow Urine Appearance Cloudy H Urine pH 6.5 Ur Specific [place] > 1.045 H Urine Protein Trace Urine Glucose (UA) Negative Urine Ketones Negative Ur Blood (Man) Non-hemolyzed trace Urine Nitrate Negative Urine Bilirubin Negative Urine Urobilinogen 0.2 Leukocyte Esterase Rfl 2+ H Urine RBC 3-5 H Urine WBC >100 H Ur Squamous Epith Cells None seen Urine Bacteria Rare Urine Casts 0-2
[2025-03-15] MEDS: PIPERACILLN/TAZ 3.375GM/NS50ML 3.375 GM/50 ML BAG IVPB ×2 (14:43→17:26)
--- NOTE | 2025-03-15 15:43 | PC.NURSE ---
On 03/15/25, the CADDY, [Shelia SALMERON ], provided care and completed [employer] documentation on this patient. I have reviewed the CADDY's documentation and agree with the findings.
[2025-03-15] MEDS: ATORVASTATIN 40 MG TABLET PO (17:25)
[2025-03-15] MEDS: IBUPROFEN 400 MG TABLET PO (20:44)
[2025-03-15] MEDS: MELATONIN 5 MG TABLET PO (20:45)
[2025-03-15] MEDS: SODIUM CHLORIDE 0.9% IV 1,000 ML 75 ML IV CONT (20:45)
[2025-03-16] VITALS (12 sets, daily range): BP systolic 116–143; BP diastolic 58–70; PULSE 55–80; RESP 18–28; TEMP 36.9–37.1; O2SAT 95–98
[2025-03-16] MEDS: PIPERACILLN/TAZ 3.375GM/NS50ML 3.375 GM/50 ML BAG IVPB ×4 (00:22→17:06)
[2025-03-16] MEDS: IBUPROFEN 400 MG TABLET PO ×2 (03:49→20:56)
[2025-03-16 06:06] LABS: Basophils Absolute Auto 0.1 K/mm3 (0.0-0.1); Basophils Percent Auto 0.3 % (0.2-1.2); Eosinophils Absolute Auto 0.1 K/mm3 (0-0.3); Eosinophils Percent Auto 0.6 % (0-4.4); Hematocrit 37.6 % (42.0-52.0); Immature Granulocyte Absolute 0.19 K/mm3 (0.00-0.031); Lymphocytes Absolute Auto 1.59 K/mm3 (0.9-3.2); Lymphocytes Percent Auto 8.2 % (18.3-44.2); Mean Corpuscular HGB Conc 31.9 g/dl (32-36); Mean Corpuscular Hemoglobin 31.2 pg (26-34); Mean Corpuscular Volume 97.7 fl (80-100); Mean Platelet Volume 8.6 fl (7.4-10.4); Monocytes Absolute Auto 1.6 K/mm3 (0.1-0.6); Monocytes Percent Auto 8.2 % (2.6-8.5); Neutrophils Absolute Auto 15.8 K/mm3 (1.3-6.7); Neutrophils Percent Auto 81.7 % (45.5-73.1); Platelet Count Result 208 k/mm3 (150-375); Red Blood Count 3.85 M/mm3 (4.6-6.20); Red Cell Distribution Width 13.9 % (11.5-14.5); White Blood Count 19.3 K/mm3 (4.5-10.0)
[2025-03-16 06:23] LABS: Alanine Aminotransferase 23 U/L (6-50); Albumin Level 2.9 g/dL (3.5-5.1); Alkaline Phosphatase 65 U/L (38-126); Anion Gap 6 mmol/L (4-12); Aspartate Amino Transferase 22 U/L (17-59); Bilirubin,Total 1.1 mg/dL (0.2-1.3); Blood Urea Nitrogen 21 mg/dL (9-20); Calcium 8.3 mg/dL (8.4-10.2); Carbon Dioxide 22 mmol/L (22-30); Chloride 108 mmol/L (98-107); Estimated CRCL calculation 47 ml/min; Estimated Glomerular Filt Rate 44; Glucose 123 mg/dL (65-110); Potassium 3.7 mmol/L (3.4-5.0); Sodium 136 mmol/L (137-145); Total Protein 5.7 g/dL (6.3-8.2)
[2025-03-16] MEDS: METOPROLOL TARTRATE 25 MG TABLET PO ×2 (08:22→20:57)
[2025-03-16] MEDS: ASPIRIN 81 MG CHEWABLE TABLET PO (08:22)
[2025-03-16] MEDS: TAMSULOSIN HCL 0.4 MG CAPSULE PO (08:22)
--- NOTE | 2025-03-16 13:29 | P.PNIM_ITS ---
Progress Note: A&P Assessment and Plan (1) Urinary tract infection: Code(s): N39.0 - Urinary tract infection, site not specified Status: Acute (2) HTN (hypertension), benign: Code(s): I10 - Essential (primary) hypertension Status: Acute (3) BPH (benign prostatic hyperplasia): Code(s): N40.0 - Benign prostatic hyperplasia without lower urinary tract symptoms Status: Acute (4) Anemia: Code(s): D64.9 - Anemia, unspecified Status: Acute Assessment and Plan: Appt Plan 74-year-old male past medical history of hyperlipidemia, hypertension, Alzheimer's in previous urosepsis presents the hospital with abdominal pain. The patient's daughter use to be a ED doctor here and states that her father symptoms are the same as when he had urosepsis previously. HPI is limited as patient has severe Alzheimer's. at bedside. Patient complains of back pain however this is chronic pain he states that is no worse than normal. Lab work showed leukocytosis at 22.4 anemia at 13.3 which is higher than baseline, creatinine of 1.3 with previous creatinine higher, GFR 53, C reactive protein 1.5, UA shows cloudy 2+ leukocyte esterase, over 100 wbc's, nitrate negative. CT abdomen chest shows cholelithiasis, and small bowel enteritis. Chest x-ray shows no acute process. Sinus tachycardia with first-degree AV block rate of 105. Patient has been started on IV Rocephin. Blood culture no growth today. Urine culture Gram-negative bacilli yet to be identified. Antibiotics switched to Zosyn WBC count worsened to 30 K but now improving. Continue IV fluid resuscitation To cover for enteritis will switch antibiotic to IV Zosyn. DVT prophylaxis Lovenox Code status full code Hypertension Hyperlipidemia CKD stage 3 Alzheimer's dementia Anemia mild BPH started on Flomax Subjective Date/time seen: 03/16/25 13:29 Interval history: Urine symptoms has improved. Remains afebrile. Labs reviewed. Discussed with the family at bedside. Review of Systems Review of Systems: All systems reviewed & are unremarkable except as noted in HPI and below Exam Narrative: General: well appearing, appears stated age. Not in acute distress HEENT: normocephalic, atraumatic. Mucous membranes moist. EOMI, PERRLA, Respiratory: clear to ascultation bilaterally. No rales/rhonic/wheezes. Cardiovascular: Regular rate and rhythm, normal S1-S2 upon ascultation. No murmurs, rubs, or clicks Abdomen: Soft, round, no pulsatile masses, nondistended and nontender. No rebound, no guarding. Extremities: No cyanosis, clubbing, or edema present. Pulses are palpable 2/2. Active ROM to all four extremities. Neuro: Alert and orientated x 4. PERRLA. Cranial nerves 2-12 intact without focal deficit. Skin: Warm, dry, and intact, without rash, erythema, or lesion. Psych: pleasant, cooperative, normal speech, normal affect, no hallucinations, no dysarthia Objective Data Vital Signs Vital Signs: Vital Signs - 24 hr 03/15/25 14:00 03/15/25 16:00 03/15/25 20:00 Temperature 97.5 F L Pulse Rate 76 64 63 Respiratory Rate 18 Blood Pressure 103/61 Pulse Oximetry 96 Oxygen Delivery 03/15/25 20:44 03/15/25 22:00 03/16/25 00:00 Temperature 98.8 F Pulse Rate 64 75 57 L Respiratory Rate 16 Blood Pressure 90/53 L Pulse Oximetry 94 Oxygen Delivery 03/16/25 04:00 03/16/25 06:00 03/16/25 08:00 Temperature 98.4 F Pulse Rate 77 77 Respiratory Rate 18 Blood Pressure 123/66 Pulse Oximetry 95 95 Oxygen Delivery Room Air 03/16/25 08:00 03/16/25 08:21 03/16/25 08:22 Temperature Pulse Rate 55 L 80 Respiratory Rate Blood Pressure 116/58 L Pulse Oximetry Oxygen Delivery 03/16/25 09:59 03/16/25 12:49 Temperature Pulse Rate 73 Respiratory Rate Blood Pressure Pulse Oximetry Oxygen Delivery Room Air Intake/Output Intake/Output: Intake & Output 03/13/25 03/14/25 03/15/25 03/16/25 23:59 23:59 23:59 23:59 Intake Total 1050 1220 1070 Output Total 0 400 Balance 1762 685 7942 Meds/Results Medications: Active Medications Generic Name Dose Route Start Last Admin Trade Name Freq PRN Reason Stop Dose Admin Aspirin 81 mg 03/15/25 08:00 03/16/25 08:22 Aspirin 81 Mg Chewable Tablet PO 81 mg DAILY@0800 KATIE Administration Atorvastatin Calcium 40 mg 03/15/25 18:00 03/15/25 17:25 Atorvastatin 40 Mg Tablet PO 40 mg QPM KATIE Administration Hydralazine HCl 25 mg 03/15/25 08:00 03/16/25 11:42 Hydralazine Hcl 25 Mg Tablet PO Not Given BIDWM KATIE Sodium Chloride 1,000 mls @ 75 mls/hr 03/14/25 22:45 03/15/25 20:45 Normal Saline Iv IV CONT 75 mls/hr .[id number] KATIE Administration Piperacillin/Tazobactam/Dextrose 3.375 gm in 50 mls @ 100 mls/hr 03/15/25 13:50 03/16/25 11:43 Zosyn 3.375 Gm/Ns 50 Ml IVPB 100 mls/hr Q6HR KATIE Administration Ibuprofen 400 mg 03/15/25 20:18 03/16/25 03:49 Ibuprofen 400 Mg Tablet PO 400 mg BID PRN Administration Pain Rated 1-6 Lisinopril 10 mg 03/15/25 09:00 03/16/25 11:42 Lisinopril 10 Mg Tablet PO Not Given DAILY KATIE Melatonin 5 mg 03/15/25 21:00 03/15/25 20:45 Melatonin 5 Mg Tablet PO 5 mg HS KATIE Administration Metoprolol Tartrate 25 mg 03/15/25 09:00 03/16/25 08:22 Metoprolol Tartrate 25 Mg Tablet PO 25 mg Q12HR KATIE Administration Tamsulosin HCl 0.4 mg 03/15/25 09:00 03/16/25 08:22 Tamsulosin Hcl 0.4 Mg Capsule PO 0.4 mg QAM KATIE Administration Radiology Results: ITS Impressions Chest X-Ray 03/14/25 14:24 IMPRESSION: No focal infiltrate or effusion. Abdomen/Pelvis CT 03/14/25 15:17 IMPRESSION: Cholelithiasis without cholecystitis. Findings within the left upper quadrant suggesting a focal small bowel enteritis. Limited evaluation of the bladder secondary to underdistention. Labs Labs: Laboratory Results - last 24 hr 03/15/25 03/16/25 06:36 05:59 WBC 30.1 H 19.3 H RBC 4.20 L 3.85 L Hgb 13.2 L 12.0 L Hct 41.4 L 37.6 L MCV 98.6 97.7 MCH 31.4 31.2 MCHC 31.9 L 31.9 L RDW 14.2 13.9 Plt Count 254 208 MPV 9.0 8.6 Immature Gran % (Auto) 1.1 H 1.0 H Neut % (Auto) 83.4 H 81.7 H Lymph % (Auto) 4.0 L 8.2 L [place] % (Auto) 11.2 H 8.2 Eos % (Auto) 0.0 0.6 Baso % (Auto) 0.3 0.3 Lymph # (Auto) 1.21 1.59 [place] # (Auto) 3.4 H 1.6 H Eos # (Auto) 0.0 0.1 Baso # (Auto) 0.1 0.1 Abs Immat Gran (auto) 0.34 H 0.19 H Absolute Neuts (auto) 25.1 H 15.8 H Absolute Nucleated RBC 0.000 0.000 Nucleated RBC % 0.0 0.0 Sodium 134 L 136 L Potassium 3.8 3.7 Chloride 104 108 H Carbon Dioxide 22 22 Anion Gap 8 6 BUN 19 21 H Creatinine 1.45 H 1.53 H Estim Creat Clear Calc 49 47 Estimated GFR 47 L 44 L Glucose 108 123 H Calcium 8.6 8.3 L Magnesium 1.8 2.0 Total Bilirubin 1.2 1.1 AST 23 22 ALT 29 23 Alkaline Phosphatase 71 65 Total Protein 6.4 5.7 L Albumin 3.6 2.9 L
--- NOTE | 2025-03-16 13:32 | PC.NURSE ---
Dr Chandra notified of holding am lisinopril and hydralazine bp 116/58.
[2025-03-16] MEDS: SODIUM CHLORIDE 0.9% IV 1,000 ML 75 ML IV CONT (17:06)
[2025-03-16] MEDS: ATORVASTATIN 40 MG TABLET PO (17:06)
[2025-03-16] MEDS: MELATONIN 5 MG TABLET PO (21:01)
[2025-03-17] VITALS: PULSE 54
[2025-03-17] MEDS: PIPERACILLN/TAZ 3.375GM/NS50ML 3.375 GM/50 ML BAG IVPB ×2 (00:33→06:23)
[2025-03-17 04:00] VITALS: PULSE 49
[2025-03-17 06:00] VITALS: BP 145/68; PULSE 55; RESP 24; TEMP 36.6; O2SAT 98
[2025-03-17 06:30] LABS: Basophils Percent Auto 0.3 % (0.2-1.2); Eosinophils Absolute Auto 0.3 K/mm3 (0-0.3); Hematocrit 37.5 % (42.0-52.0); Hemoglobin 12.1 g/dL (14.0-18.0); Immature Granulocyte Absolute 0.05 K/mm3 (0.00-0.031); Immature Granulocyte Percent A 0.5 % (0-0.5); Lymphocytes Absolute Auto 1.34 K/mm3 (0.9-3.2); Lymphocytes Percent Auto 12.2 % (18.3-44.2); Mean Corpuscular HGB Conc 32.3 g/dl (32-36); Mean Corpuscular Hemoglobin 31.3 pg (26-34); Mean Corpuscular Volume 96.9 fl (80-100); Mean Platelet Volume 8.8 fl (7.4-10.4); Monocytes Absolute Auto 1.1 K/mm3 (0.1-0.6); Neutrophils Absolute Auto 8.1 K/mm3 (1.3-6.7); Platelet Count Result 232 k/mm3 (150-375); Red Blood Count 3.87 M/mm3 (4.6-6.20); Red Cell Distribution Width 13.8 % (11.5-14.5)
[2025-03-17 06:50] LABS: Alanine Aminotransferase 40 U/L (6-50); Albumin Level 3.3 g/dL (3.5-5.1); Alkaline Phosphatase 68 U/L (38-126); Anion Gap 4 mmol/L (4-12); Aspartate Amino Transferase 36 U/L (17-59); Bilirubin,Total 0.5 mg/dL (0.2-1.3); Blood Urea Nitrogen 17 mg/dL (9-20); Calcium 8.6 mg/dL (8.4-10.2); Carbon Dioxide 22 mmol/L (22-30); Chloride 110 mmol/L (98-107); Estimated CRCL calculation 51 ml/min; Estimated Glomerular Filt Rate 49; Glucose 102 mg/dL (65-110); Magnesium 2.1 mg/dL (1.6-2.3); Potassium 3.7 mmol/L (3.4-5.0); Sodium 136 mmol/L (137-145); Total Protein 6.1 g/dL (6.3-8.2)
[2025-03-17 07:18] LABS: Toxigenic C. Diff NEGATIVE (NEGATIVE)
[2025-03-17 08:00] VITALS: PULSE 64; O2SAT 98
[2025-03-17 08:20] VITALS: PULSE 62
[2025-03-17] MEDS: TAMSULOSIN HCL 0.4 MG CAPSULE PO (08:20)
[2025-03-17] MEDS: ASPIRIN 81 MG CHEWABLE TABLET PO (08:20)
[2025-03-17] MEDS: METOPROLOL TARTRATE 25 MG TABLET PO (08:20)
--- NOTE | 2025-03-17 11:50 | PM.DS ---
DS: Admitting Diagnosis Discharge Date 03/17/2025 Admitting Diagnosis UTI DS: Discharge Diagnosis Discharge Diagnosis (1) Urinary tract infection: Code(s): N39.0 - Urinary tract infection, site not specified Status: Acute (2) HTN (hypertension), benign: Code(s): I10 - Essential (primary) hypertension Status: Acute (3) BPH (benign prostatic hyperplasia): Code(s): N40.0 - Benign prostatic hyperplasia without lower urinary tract symptoms Status: Acute (4) Anemia: Code(s): D64.9 - Anemia, unspecified Status: Acute DS: Summary Hospital Course Hospital Course: 74-year-old male past medical history of hyperlipidemia, hypertension, Alzheimer's in previous urosepsis presents the hospital with abdominal pain. The patient's daughter use to be a ED doctor here and states that her father symptoms are the same as when he had urosepsis previously. HPI is limited as patient has severe Alzheimer's. at bedside. Patient complains of back pain however this is chronic pain he states that is no worse than normal. Lab work showed leukocytosis at 22.4 anemia at 13.3 which is higher than baseline, creatinine of 1.3 with previous creatinine higher, GFR 53, C reactive protein 1.5, UA shows cloudy 2+ leukocyte esterase, over 100 wbc's, nitrate negative. CT abdomen chest shows cholelithiasis, and small bowel enteritis. Chest x-ray shows no acute process. Sinus tachycardia with first-degree AV block rate of 105. Patient has been started on IV Rocephin. Blood culture no growth to date. Urine culture Gram-negative bacilli identified as Citrobacter koseri. Antibiotics switched to Zosyn. Urine culture is pansensitive. Will switch to Augmentin at discharge. WBC count worsened to 30 K but now improving and almost normal by the time of discharge. Continue IV fluid resuscitation To cover for enteritis will switch antibiotic to IV Zosyn. Will switch to Augmentin. DVT prophylaxis Lovenox Code status full code Hypertension Hyperlipidemia CKD stage 3 Alzheimer's dementia Anemia mild BPH started on Flomax should follow up with Dr. Montenegro Time Spent with Patient Time attestation: Total time spent providing and/or coordinating discharge services: 35 minutes Exam Narrative: General: well appearing, appears stated age. Not in acute distress HEENT: normocephalic, atraumatic. Mucous membranes moist. EOMI, PERRLA, Respiratory: clear to ascultation bilaterally. No rales/rhonic/wheezes. Cardiovascular: Regular rate and rhythm, normal S1-S2 upon ascultation. No murmurs, rubs, or clicks Abdomen: Soft, round, no pulsatile masses, nondistended and nontender. No rebound, no guarding. Extremities: No cyanosis, clubbing, or edema present. Pulses are palpable 2/2. Active ROM to all four extremities. Neuro: Alert and orientated x 4. PERRLA. Cranial nerves 2-12 intact without focal deficit. Skin: Warm, dry, and intact, without rash, erythema, or lesion. Psych: pleasant, cooperative, normal speech, normal affect, no hallucinations, no dysarthia DS: Data Data Completed and Pending Labs on day of discharge: Labs from last 24 hours 03/17/25 03/17/25 06:21 06:01 WBC 11.0 H RBC 3.87 L Hgb 12.1 L Hct 37.5 L MCV 96.9 MCH 31.3 MCHC 32.3 RDW 13.8 Plt Count 232 MPV 8.8 Immature Gran % (Auto) 0.5 Neut % (Auto) 74.0 H Lymph % (Auto) 12.2 L [place] % (Auto) 10.0 H Eos % (Auto) 3.0 Baso % (Auto) 0.3 Lymph # (Auto) 1.34 [place] # (Auto) 1.1 H Eos # (Auto) 0.3 Baso # (Auto) 0.0 Abs Immat Gran (auto) 0.05 H Absolute Neuts (auto) 8.1 H Absolute Nucleated RBC 0.000 Nucleated RBC % 0.0 Sodium 136 L Potassium 3.7 Chloride 110 H Carbon Dioxide 22 Anion Gap 4 BUN 17 Creatinine 1.40 H Estim Creat Clear Calc 51 Estimated GFR 49 L Glucose 102 Calcium 8.6 Magnesium 2.1 Total Bilirubin 0.5 AST 36 ALT 40 Alkaline Phosphatase 68 Total Protein 6.1 L Albumin 3.3 L C. difficile (PCR) Negative Preliminary micro results at discharge 03/14/25 13:46 Blood Culture - Preliminary Blood 03/14/25 13:42 Blood Culture - Preliminary Blood Imaging Radiologist's impression: ITS Impressions Chest X-Ray 03/14/25 14:24 IMPRESSION: No focal infiltrate or effusion. Abdomen/Pelvis CT 03/14/25 15:17 IMPRESSION: Cholelithiasis without cholecystitis. Findings within the left upper quadrant suggesting a focal small bowel enteritis. Limited evaluation of the bladder secondary to underdistention. Discharge Plan Discharge Attending physician on discharge: Sam Nuno Discharging Clinician: Sam Nuno Anticipated Discharge Date/Time: 03/17/25 11:52 Patient Disposition: Home Activity: as tolerated Diet: regular Patient Instructions: Antibiotic Form, Blood Thinners (GEN) Patient Language: Brazilian Stand Alone Forms: General Discharge Information Follow-up/Referrals: Bipin,DO Ward [Primary Care Provider] - 1 Week David Montenegro MD [Physician] - 2 Weeks Discharge Medications: New amoxicillin-pot clavulanate 875-125 mg tablet 1 tablet PO Q12H Qty: 6 0RF tamsulosin 0.4 mg Capsule 0.4 mg PO QAM Qty: 30 0RF Continued metoprolol tartrate 25 mg tablet 25 mg PO BID potassium chloride 10 mEq tablet extended release 10 meq PO BID aspirin 81 mg capsule 81 mg PO DAILY atorvastatin 40 mg tablet 40 mg PO QPM cholecalciferol (vitamin D3) [Vitamin D3] 25 mcg (1,000 unit) tablet 25 mcg PO DAILY vitamin B complex Tablet 1 tablet PO DAILY hydralazine 25 mg Tablet 25 mg PO BID Qty: 60 0RF lisinopril 10 mg Tablet 10 mg PO DAILY Qty: 30 0RF Date of admission: 03/15/25 09:19 Primary Care Provider: MaileWard Admitting Provider: Sam Nuno Attending physician on admission: Sam Nuno Condition: Improved
[2025-03-17] MEDS: AMOXICILLIN/CLAVULANATE K 875-125 MG TAB 1 TABLET PO (11:59)
== END 2025-03-17 12:27 | disposition home or self-care (01) | DRG 690 ==
LOC: ANHED 13:52 → ANH3MEDSUR 16:40
PROVIDERS: Nurse Practitioner Gerontology; Physician Assistant; Admitting Provider Internal Medicine; Emergency Provider Emergency Medicine; PCP Family Medicine; Visit Provider Internal Medicine
DX: N39.0 Urinary tract infection, site not specified (principal); B96.89 Other specified bacterial agents as the cause of diseases classified elsewhere; D63.1 Anemia in chronic kidney disease; E78.5 Hyperlipidemia, unspecified; G30.9 Alzheimer's disease, unspecified; G89.29 Other chronic pain; F02.C0 Dementia in other diseases classified elsewhere, severe, without behavioral disturbance, psychotic disturbance, mood disturbance, and anxiety; I12.9 Hypertensive chronic kidney disease with stage 1 through stage 4 chronic kidney disease, or unspecified chronic kidney disease; K80.20 Calculus of gallbladder without cholecystitis without obstruction; K52.9 Noninfective gastroenteritis and colitis, unspecified; K21.9 Gastro-esophageal reflux disease without esophagitis; N18.30 Chronic kidney disease, stage 3 unspecified; N40.0 Benign prostatic hyperplasia without lower urinary tract symptoms; Z96.641 Presence of right artificial hip joint; Z87.891 Personal history of nicotine dependence
CPT/HCPCS: 36415; 71046; 74177; 80053; 81001; 81003; 82607; 82746; 83540; 83550; 83605; 83735; 84145; 85025; 85610; 85730; 86140; 87040; 87077; 87086; 87186; 87493; 93005; 96361; 96365; 96375; 97161; 99213; 99285; A9270; G0378; G0463; J0696; J2270; J2543; J7030; J7120; Q9967

== ENCOUNTER 2025-08-14 12:30 | Outpatient (RCR) | payer MEDICARE, SELFPAY ==
--- NOTE | 2025-06-23 16:31 | OPREHPOC ---
Outpatient Therapy Plan of Care This is a Multidisciplinary Plan of Care that may contain components documented by all disciplines (PT, OT, and ST.) PT Problem 1 PT Problem #1 Knowledge Deficit PT Goal 1 Goal / Goal Update *independent with HEP * good safety awareness with vestibular issues Target Visit 10 PT Problem 2 PT Problem #2 Impaired Vestibular System PT Goal 1 Goal / Goal Update pt report NO dizziness with: 1* walking 50' with head motions R/L 3x each 2* 360' turn to R x1 in standing 3* 360' turn to L x 1 in standing 4* supine to sitting 5* sitting to supine 6* rolling R/L in bed Target Visit 10
--- NOTE | 2025-06-23 16:31 | PTOPEVAL1 ---
Assessment and note entered by Soco Krishna, PT Evaluation Information Assessment Status Evaluation ICD-10 Condition Codes (PT) Dizziness and Giddiness R42,BPPV H81.12 Onset Jun 01 Subjective Information onset with one morning, getting out of bed, with turned head quickly to the R to talk with ; no ringing in ears, but they pop alot; no issues with reading or watching TV; symptoms: vision is blurred and hazy, like a light shade over my eyes all the time; when first wake up in AM and get up to sitting, room is spinning, clears few seconds; increase symptoms: same all the time; medical history: last eye exam ~ 3 years ago, does not have glasses; have had cataract surgery ~ 3 years ago with lens implants; seasonal allergies; neck pain Reported Pain Level Pain Score 0: Self Report Additional Pain Score Comments cervical pain with rotation to 4/10; Assessment PT Clinical Summary Jose has the diagnosis of BPPV. Dizziness Handicap Index rating of 16% limitation in activity level. His medical history includes risk factors of: multiple meds, cervical pain, no eye exam for over 3 years, s/p cataract surgery with lens implants, seasonal allergies. With the vestibular testing, he had positive [employer] testing to R for anterior/posterior canal BPPV. Skilled PT services are indicated for vestibular treatment: to begin treatment with [facility] for clearing BPPV with further assessment with vision and balance as indicated, and education for safety and home exericses. Plan of Care Interventions Neuro Re-education,Patient/Caregiver Education, Therapeutic Activities,Therapeutic Exercise PT Services Indicated Yes Treatment Frequency and 1-2 x/wk for 10 visits Duration These treatments will address the objective and functional deficits as defined above. The patient will be advanced safely and appropriately in order for the patient to progress towards his/her prior level of function. Additional exercises will be introduced and as well as a comprehensive home exercise program upon discharge, if needed, ?to ensure carryover of functional gains achieved in the clinic. This treatment plan has been reviewed and agreement upon by the patient.
--- NOTE | 2025-08-20 13:14 | PCPTNOTE ---
pt called and canceled today's appt.
--- NOTE | 2025-09-22 14:17 | PCPTNOTE ---
PHYSICAL THERAPY DISCHARGE 09-22-25 DO Jose Rutherford has received 2 PT sessions on Jun 23 and August 13 for the diagnosis of BPPV. He called and canceled the August 20 appointment. And has not returned for any further treatment. Discharge PT due to not attending. The goals were not addressed.
== END 2025-09-21 23:59 | disposition home or self-care (01) ==
LOC: ANHPT 12:30
PROVIDERS: PCP Family Medicine; Visit Provider Family Medicine
DX: H81.12 Benign paroxysmal vertigo, left ear (principal)
CPT/HCPCS: 95992; 97112; 97161; 97530